=== PATIENT | female | born 1990 | race Caucasian/White ===

== ENCOUNTER 2020-03-04 16:32 | Outpatient (REF) | payer MEDICAID, SELFPAY | END 2020-03-04 16:33 | disposition home or self-care (01) | LOC: HO.LAB 16:32 | PROVIDERS: Visit Provider Internal Medicine | DX: Z20.828 Contact with and (suspected) exposure to other viral communicable diseases (principal) | CPT/HCPCS: 36415; 87635 ==

== ENCOUNTER 2020-09-07 09:03 | Outpatient (REF) | payer MEDICAID, SELFPAY ==
[2020-09-07 10:53] LABS: Hematocrit 39.2 % (37-47); Mean Corpuscular HGB Conc 33.2 g/dl (31.0-35.0); Mean Corpuscular Hemoglobin 28.6 pg (27.0-33.0); Mean Corpuscular Volume 86.3 fL (80-98); Mean Platelet Volume 11.1 fL (9.4-12.3); Platelet Count 251 X10*3/uL (160-400); Red Blood Count 4.54 X10*6/uL (4.20-5.50); Red Cell Distribution Width 12.6 % (11.0-16.0); White Blood Count 4.9 X10*3/uL (4.8-10.8)
[2020-09-07 11:29] LABS: HCG Quantitative < 2 mIU/mL; Thyroid Stimulating Hormone 0.89 uIU/mL (0.32-4.0)
[2020-09-08 11:26] LABS: CT PCR NOT DETECTED (Not Detect.); NG PCR NOT DETECTED (Not Detect.)
[2020-09-11 02:42] LABS: HPV 16 RNA NOT DETECTED (NOT DETECTED); HPV mRNA E6/E7 rflx Detected (Not Detected)
== END 2020-09-07 09:04 | disposition home or self-care (01) ==
LOC: HO.LAB 09:03
PROVIDERS: PCP Nurse Practitioner Family; Visit Provider Obstetrics & Gynecology
DX: N92.1 Excessive and frequent menstruation with irregular cycle (principal); N93.0 Postcoital and contact bleeding; Z87.42 Personal history of other diseases of the female genital tract
CPT/HCPCS: 36415; 84443; 84702; 85027; 87491; 87591; 87624; 87625; 88141; 88142; 99202

== ENCOUNTER 2020-09-21 11:25 | Outpatient (REF) | payer MEDICAID, SELFPAY ==
--- NOTE | ~2020-09-21 | US_ITS ---
EXAMINATION: US PELVIS COMPLETE US PELVIS TRANSVAGINAL CLINICAL INFORMATION: Excessive and frequent menstruation. Irregular cycles. COMPARISON: Pelvic ultrasound dated 02/17/2019. TECHNIQUE: Transabdominal and transvaginal imaging was performed. FINDINGS: The uterus is of normal size and slightly heterogeneous measuring 8.3 x 3.6 x 4.7 cm. There are tiny calcifications within the lower uterine segment. A regular homogeneous endometrium is identified measuring 0.4 cm. Both ovaries are of normal size and echogenicity. The right measures 3.7 x 1.9 x 2 cm for a volume of 7.4 mL. The left measures 3.4 x 1.6 x 2.7 cm for a volume of 7.7 mL. There are bilateral peripheral ovarian follicles, similar when compared to the prior ultrasound. Findings can be seen in the setting of polycystic ovarian syndrome. There is no pelvic free fluid. US/US transvaginal IMPRESSION: 1. Peripheral ovarian follicles bilaterally, similar when compared to the prior ultrasound. Findings can be seen in setting of polycystic ovarian syndrome. 2. Slightly heterogeneous myometrium with tiny lower uterine segment calcifications. No discrete uterine fibroid. Unremarkable endometrium.
--- NOTE | ~2020-09-21 | US_ITS ---
EXAMINATION: US PELVIS COMPLETE US PELVIS TRANSVAGINAL CLINICAL INFORMATION: Excessive and frequent menstruation. Irregular cycles. COMPARISON: Pelvic ultrasound dated 02/17/2019. TECHNIQUE: Transabdominal and transvaginal imaging was performed. FINDINGS: The uterus is of normal size and slightly heterogeneous measuring 8.3 x 3.6 x 4.7 cm. There are tiny calcifications within the lower uterine segment. A regular homogeneous endometrium is identified measuring 0.4 cm. Both ovaries are of normal size and echogenicity. The right measures 3.7 x 1.9 x 2 cm for a volume of 7.4 mL. The left measures 3.4 x 1.6 x 2.7 cm for a volume of 7.7 mL. There are bilateral peripheral ovarian follicles, similar when compared to the prior ultrasound. Findings can be seen in the setting of polycystic ovarian syndrome. There is no pelvic free fluid. US/US pelvic complete IMPRESSION: 1. Peripheral ovarian follicles bilaterally, similar when compared to the prior ultrasound. Findings can be seen in setting of polycystic ovarian syndrome. 2. Slightly heterogeneous myometrium with tiny lower uterine segment calcifications. No discrete uterine fibroid. Unremarkable endometrium.
== END 2020-09-21 11:26 | disposition home or self-care (01) ==
LOC: HO.US 11:25
PROVIDERS: Visit Provider Obstetrics & Gynecology
DX: N92.1 Excessive and frequent menstruation with irregular cycle (principal)
CPT/HCPCS: 76830; 76856

== ENCOUNTER 2020-09-30 10:35 | Outpatient (REF) | payer MEDICAID, SELFPAY | END 2020-09-30 10:36 | disposition home or self-care (01) | LOC: HO.LAB 10:35 | PROVIDERS: Visit Provider Obstetrics & Gynecology | DX: R87.610 Atypical squamous cells of undetermined significance on cytologic smear of cervix (ASC-US) (principal); R87.810 Cervical high risk human papillomavirus (HPV) DNA test positive; I10 Essential (primary) hypertension; Z91.013 Allergy to seafood | CPT/HCPCS: 57454; 81025; 88305 ==

== ENCOUNTER → 2020-10-14 11:26 | Outpatient (BNVA) | payer MEDICAID, SELFPAY | PROVIDERS: Visit Provider Obstetrics & Gynecology ==

== ENCOUNTER 2020-11-02 10:11 | Outpatient (REF) | payer MEDICAID, SELFPAY ==
[2020-11-02 19:29] LABS: CT PCR NOT DETECTED (Not Detect.); NG PCR NOT DETECTED (Not Detect.)
== END 2020-11-02 10:12 | disposition home or self-care (01) ==
LOC: HO.LAB 10:11
PROVIDERS: Visit Provider Obstetrics & Gynecology
DX: N92.1 Excessive and frequent menstruation with irregular cycle (principal)
CPT/HCPCS: 87491; 87591; 99212

== ENCOUNTER → 2021-02-01 14:09 | Outpatient (BNVA) | payer MEDICAID, SELFPAY | PROVIDERS: Visit Provider Physician Assistant ==

== ENCOUNTER → 2021-02-02 07:23 | Outpatient (BNVA) | payer MEDICAID, SELFPAY | PROVIDERS: Visit Provider Surgery ==

== ENCOUNTER → 2021-02-08 14:30 | Outpatient (BNVA) | payer MEDICAID, SELFPAY | PROVIDERS: Visit Provider Surgery ==

== ENCOUNTER 2021-02-11 09:21 | Outpatient (REF) | payer MEDICAID, SELFPAY ==
--- NOTE | ~2021-02-11 | XR_ITS ---
EXAMINATION: XR CHEST CLINICAL INFORMATION: Morbid obesity due to excess calories COMPARISON: 05/21/2018 TECHNIQUE: 2 views of the chest were obtained. FINDINGS: Lungs are clear. No focal consolidation or mass. Normal pulmonary vascularity. No pleural effusion or pneumothorax. Normal heart size. No acute osseous abnormality. XR/XR chest 2V IMPRESSION: No acute pulmonary disease.
--- NOTE | 2021-02-11 09:34 | ECG_ITS ---
Test Reason : OBESITY Blood Pressure : / mmHG Vent. Rate : 078 BPM Atrial Rate : 078 BPM P-R Int : 162 ms QRS Dur : 074 ms QT Int : 372 ms P-R-T Axes : 007 020 -02 degrees QTc Int : 424 ms Normal sinus rhythm Minimal voltage criteria for LVH, may be normal variant ( R in aVL ) Borderline ECG When compared with ECG of 27-MAY-2016 04:47, No significant change was found Referred By: Jason Robles Electronically Signed By:BRIAN DEVRIES
[2021-02-11 10:31] LABS: MANUAL DIFF FLAG NO
[2021-02-11 10:39] LABS: Basophils Percent Auto 0.5 % (0-2); Eosinophils Absolute Auto 0.1 X10*3/uL (0.0-0.4); Eosinophils Percent Auto 2.3 % (0-4); Hematocrit 40.2 % (37-47); Hemoglobin 13.5 g/dl (12.0-16.0); Imm Gran Abs Auto 0.01 X10*3/uL (0.00-0.03); Imm Gran Pct Auto 0.2 % (0.0-0.4); Lymphocytes Absolute Auto 1.7 X10*3/uL (1.2-4.9); Lymphocytes Percent Auto 38.6 % (20-40); Mean Corpuscular HGB Conc 33.6 g/dl (31.0-35.0); Mean Corpuscular Hemoglobin 28.8 pg (27.0-33.0); Mean Corpuscular Volume 85.9 fL (80-98); Mean Platelet Volume 11.4 fL (9.4-12.3); Monocytes Absolute Auto 0.4 X10*3/uL (0.1-1.2); Monocytes Percent Auto 9.3 % (2-11); Neutrophils Absolute Auto 2.2 X10*3/uL (2.0-8.3); Neutrophils Percent Auto 49.1 % (45-73); Platelet Count 251 X10*3/uL (160-400); Red Blood Count 4.68 X10*6/uL (4.20-5.50); Red Cell Distribution Width 12.4 % (11.0-16.0); White Blood Count 4.4 X10*3/uL (4.8-10.8)
[2021-02-11 10:54] LABS: Estimated Average Glucose 97 mg/dL
[2021-02-11 11:14] LABS: Ferritin 14 ng/mL (10-122); TSH reflex Free T4 1.15 uIU/mL (0.32-4.0); Vitamin D 25-OH Total 16.3 ng/mL (>30)
[2021-02-11 11:17] LABS: Alanine Aminotransferase 15 U/L (0-31); Albumin Level 4.4 g/dL (3.5-5.0); Alkaline Phosphatase 85 U/L (39-117); Anion Gap 11 (12-20); Aspartate Amino Transferase 15 U/L (5-31); Bilirubin Total 1.5 mg/dL (0.0-1.0); Blood Urea Nitrogen 16 mg/dL (9-16); C Reactive Protein 0.36 mg/dL (< or = 0.50); Calcium 9.6 mg/dL (8.4-10.2); Carbon Dioxide 25 mmol/L (22-29); Chloride 109 mmol/L (96-108); Cholesterol 197 mg/dL; Estimated Glomerular Filt Rate > 60; Glucose Random 85 mg/dL (60-115); HDL Cholesterol 41 mg/dL; Iron 98 mcg/dL (30-160); LDL Cholesterol Calculated 139 mg/dl; Percent Iron Saturation 25 % (15-50); Potassium 4.8 mmol/L (3.3-5.1); Sodium 140 mmol/L (135-145); Total Iron Binding Capacity 400 mcg/dL (228-428); Total Protein 7.7 g/dL (6.5-8.0); Triglycerides 86 mg/dL; Unsaturated Iron Binding 302 ug/dL
[2021-02-11 11:27] LABS: Folate 7.2 ng/mL (> or = 4.0); Vitamin B12 462 pg/mL (200-900)
[2021-02-12 15:45] LABS: H Pylori Breath Test Positive (Negative)
[2021-02-13 06:31] LABS: Calcium (PTHI) 9.4 mg/dL (8.6-10.2); PTHI 71 pg/mL (14-64)
[2021-02-14 21:32] LABS: Insulin Level Total 19.8 uIU/mL
[2021-02-15 06:02] LABS: Zinc 80 mcg/dL (60-130)
[2021-02-16 13:00] LABS: Vitamin B1 11 nmol/L (8-30)
[2021-02-17 17:01] LABS: Vitamin A 45 mcg/dL (38-98)
== END 2021-02-11 09:22 | disposition home or self-care (01) ==
LOC: HO.XRAY 09:21
PROVIDERS: Visit Provider Surgery
DX: Z01.818 Encounter for other preprocedural examination (principal); E66.01 Morbid (severe) obesity due to excess calories
CPT/HCPCS: 36415; 71046; 80053; 80061; 82306; 82607; 82728; 82746; 83013; 83036; 83525; 83540; 83970; 84425; 84443; 84590; 84630; 85025; 86140; 93005; 99211

== ENCOUNTER 2021-03-08 09:14 | Outpatient (REF) | payer MEDICAID, SELFPAY ==
--- NOTE | ~2021-03-08 | US_ITS ---
EXAMINATION: US COMPLETE ABDOMEN WITH LIVER ELASTOGRAPHY CLINICAL INFORMATION: Obesity COMPARISON: Previous CT and March 2018 and abdominal ultrasound February 2018 TECHNIQUE: Real-time imaging of the abdominal viscera. Noninvasive ultrasound liver fibrosis assessment is performed using Christian[employer] ElastPQ point quantification shear wave elastography (pSWE) with a C5-2 MHz transducer. Multiple elastography samples are obtained. FINDINGS: PANCREAS: Not well visualized due to bowel gas ABDOMINAL AORTA: The proximal, middle, and distal aortic segments are normal in caliber. INFERIOR VENA CAVA: Visualized portions are normal. LIVER: Normal. The liver demonstrates normal size, contour and echogenicity. No focal lesion or intrahepatic biliary duct dilatation. The right lobe measures 15 cm in length. The left lobe measures 9 cm in length. Portal flow is normal/hepatopedal Shear wave liver elastography median stiffness is 1.5 m/s (reference: normal median stiffness is 1.3 m/s or less). IQR/median stiffness to assess sampling precision is 0.2 (reference: good quality data set is IQR/median stiffness of 0.15 or less). GALLBLADDER: Surgically removed COMMON BILE DUCT: Normal in caliber measuring 0.4 cm in diameter. RIGHT KIDNEY: Normal. No hydronephrosis. No renal calculi or focal parenchymal lesions. The kidney measures 11 cm in maximum dimension. LEFT KIDNEY: Normal. No hydronephrosis. No renal calculi or focal parenchymal lesions. The kidney measures 11.5 cm in maximum dimension. SPLEEN: Normal. The spleen measures 10.5 cm in maximum dimension. FREE FLUID: None. US/US abdomen comp w elastography IMPRESSION: 1. Impression: Normal-appearing liver. Limited visualization of the pancreas. 2. Liver elastography: Slightly limited due to sampling error. In the absence of other known clinical signs, rules out compensated advanced chronic liver disease. REFERENCE: Society of Radiologists in Ultrasound Liver Stiffness Thresholds (2020): LIVER STIFFNESS THRESHOLDS: *Liver Stiffness equal or less than 1.3 m/s: High probability of being normal. *Liver Stiffness less than 1.7 m/s: In the absence of other known clinical signs, rules out compensated advanced chronic liver disease. *Liver Stiffness 1.7-2.1 m/s: Suggestive of compensated advanced chronic liver disease but need further test for confirmation. *Liver Stiffness over 2.1 m/s: Rules in compensated advanced chronic liver disease. *Liver Stiffness over 2.4 m/s: Suggestive of clinically significant portal hypertension. QUALITY OF DATA SET: *IQR/Median value equal or less than 0.15 implies a quality data set. *IQR/Median value over 0.15 implies a poor quality data set. SIGNIFICANT CHANGE FROM PRIOR EXAM: Significant change if liver stiffness measurement is 10% or greater from prior exam. OTHER CONSIDERATIONS: The stage of liver fibrosis may be overestimated in the setting of acute hepatitis, liver inflammation, elevated liver function tests, hepatic vascular congestion, obstructive cholestasis, non-fasting state, and infiltrative diseases such as amyloidosis and lymphoma. In some patients with NAFLD, the liver stiffness thresholds for compensated advanced chronic liver disease may be lower. In causes other than viral hepatitis and NAFLD, liver stiffness thresholds are not well established.
--- NOTE | ~2021-03-08 | FL_ITS ---
EXAMINATION: XR GI SERIES CLINICAL INFORMATION: Moderate/severe obesity due to excess calories. COMPARISON: None. TECHNIQUE: Routine upper GI air-contrast study was performed. FINDINGS: Following oral administration of thick barium and effervescent granules, there is normal propagation of bolus from the oral cavity through the pharynx and esophagus and into the stomach without any evidence of obstruction, narrowing or stricture. On placing patient supine and prone, the course, caliber and peristalsis of the stomach and the duodenal bulb are normal. The duodenal sweep is normal as well. There is mild gastroesophageal reflux in right decubitus view. FLUOROSCOPY TIME: 1.7 minutes. DOSE AREA PRODUCT: 31.204 uGy-m2 (microgray-meter squared). FL/FL upper GI series IMPRESSION: Mild gastroesophageal reflux without hiatal hernia.
== END 2021-03-08 09:15 | disposition home or self-care (01) ==
LOC: HO.US 09:14
PROVIDERS: Visit Provider Surgery
DX: Z01.818 Encounter for other preprocedural examination (principal); E66.01 Morbid (severe) obesity due to excess calories; K21.9 Gastro-esophageal reflux disease without esophagitis
CPT/HCPCS: 74240; 76705; 76981

== ENCOUNTER → 2021-03-18 08:45 | Outpatient (BNVA) | payer MEDICAID, SELFPAY | PROVIDERS: Visit Provider Dietitian, Registered | DX: E66.9 Obesity, unspecified (principal) | CPT/HCPCS: 97802 ==

== ENCOUNTER 2021-12-06 08:48 | Outpatient (REF) | payer MEDICAID, SELFPAY ==
[2021-12-09 07:06] LABS: HPV mRNA E6/E7 rflx Not Detected (Not Detected)
== END 2021-12-06 08:49 | disposition home or self-care (01) ==
LOC: HO.LAB 08:48
PROVIDERS: Visit Provider Obstetrics & Gynecology
DX: Z01.419 Encounter for gynecological examination (general) (routine) without abnormal findings (principal); N87.0 Mild cervical dysplasia
CPT/HCPCS: 87624; 88142; 99212

== ENCOUNTER 2022-02-16 11:16 | Outpatient (REF) | payer MEDICAID, SELFPAY ==
[2022-02-16 13:40] LABS: HCG Quantitative 22 mIU/mL
== END 2022-02-16 11:17 | disposition home or self-care (01) ==
LOC: HO.LAB 11:16
PROVIDERS: Visit Provider Obstetrics & Gynecology
DX: Z32.01 Encounter for pregnancy test, result positive (principal)
CPT/HCPCS: 36415; 81025; 84702; 99212

== ENCOUNTER 2022-02-18 09:18 | Outpatient (REF) | payer MEDICAID, SELFPAY ==
[2022-02-18 10:35] LABS: HCG Quantitative 102 mIU/mL
== END 2022-02-18 09:19 | disposition home or self-care (01) ==
LOC: HO.LAB 09:18
PROVIDERS: Visit Provider Obstetrics & Gynecology
DX: Z34.90 Encounter for supervision of normal pregnancy, unspecified, unspecified trimester (principal)
CPT/HCPCS: 36415; 84702

== ENCOUNTER 2022-02-20 08:40 | Outpatient (REF) | payer MEDICAID, SELFPAY ==
[2022-02-20 10:04] LABS: HCG Quantitative 255 mIU/mL
== END 2022-02-20 08:41 | disposition home or self-care (01) ==
LOC: HO.LAB 08:40
PROVIDERS: Visit Provider Obstetrics & Gynecology
DX: Z34.90 Encounter for supervision of normal pregnancy, unspecified, unspecified trimester (principal)
CPT/HCPCS: 36415; 84702; 99212

== ENCOUNTER 2022-02-28 10:57 | Outpatient (REF) | payer MEDICAID, SELFPAY ==
--- NOTE | ~2022-02-28 | US_ITS ---
EXAMINATION: US OBSTETRICAL ULTRASOUND CLINICAL INFORMATION: Check viability and size and dates COMPARISON: None. LMP: The 2021. Gestational age by maternal dates is by dates is 6 weeks 5 days. Estimated date of delivery by maternal dates is 10/19/2021. TECHNIQUE: Transabdominal and transvaginal first trimester OB ultrasound. Transvaginal exam was performed for better visualization of the gestational sac. FINDINGS: The uterus is normal in size and shape. There is an intrauterine gestational sac. Mean sac diameter measures 0.9 cm which would suggest gestational age of 5 weeks 4 days. There is a yolk sac. No pole is seen. The right maternal ovary is normal and measures 3.3 x 2.5 x 1.5 cm. The left maternal ovary measures 3.4 x 2.7 x 3.5 cm. There is a 1.9 x 1.9 x 1.7 cm left ovarian cyst. There is no fluid in the pelvis. US/US OB <= 14 weeks fetus IMPRESSION: Intrauterine gestational sac and yolk sac. No pole seen. This may be due to early gestational age. Follow-up OB ultrasound recommended.
[2022-02-28 12:29] LABS: HCG Quantitative 8299 mIU/mL
== END 2022-02-28 10:58 | disposition home or self-care (01) ==
LOC: HO.US 10:57
PROVIDERS: PCP Registered Nurse Community Health; Visit Provider Obstetrics & Gynecology
DX: Z34.91 Encounter for supervision of normal pregnancy, unspecified, first trimester (principal); Z3A.01 Less than 8 weeks gestation of pregnancy
CPT/HCPCS: 36415; 76801; 84702; 99212

== ENCOUNTER 2022-03-14 15:05 | Outpatient (REF) | payer MEDICAID, SELFPAY ==
--- NOTE | ~2022-03-14 | US_ITS ---
EXAMINATION: US OBSTETRICAL ULTRASOUND CLINICAL INFORMATION: Early . Cramping. COMPARISON: Previous exam 02/28/2022. LMP: 01/12/2022. Gestational age by maternal dates is 8 weeks 5 days. Estimated date of delivery by maternal dates is 10/19/2022. TECHNIQUE: Transabdominal and transvaginal first trimester OB ultrasound. Transvaginal exam was performed for better visualization of the uterus and ovaries. FINDINGS: There is a single intrauterine gestational sac with visible yolk sac, embryo/fetus, and cardiac activity. There is no significant subchorionic hemorrhage or hematoma. HR: 167 beats per minute. CRL (crown rump length): 1.15 cm (7 weeks 3 days +/- 4 days). CHERYL (estimated date of delivery): 10/28/2022 +/- 4 days. MATERNAL ADNEXA: The right maternal ovary measures 3.4 x 2.1 x 2 cm. The left maternal ovary measures 3.6 x 2.8 x 3.6 cm. There is no significant maternal adnexal mass. No maternal pelvic ascites. US/US OB pelvic and transvaginal IMPRESSION: 1. Single intrauterine gestation with ultrasound gestational age of 7 weeks 3 days +/- 4 days. 2. Estimated date of delivery is 10/28/2022 +/- 4 days. 3. No maternal adnexal mass or pelvic ascites.
== END 2022-03-14 15:06 | disposition home or self-care (01) ==
LOC: HO.US 15:05
PROVIDERS: Visit Provider Obstetrics & Gynecology
DX: Z34.91 Encounter for supervision of normal pregnancy, unspecified, first trimester (principal); Z3A.08 8 weeks gestation of pregnancy
CPT/HCPCS: 76801; 76817

== ENCOUNTER 2022-03-30 10:10 | Outpatient (REF) | payer MEDICAID, SELFPAY ==
--- NOTE | ~2022-03-30 | US_ITS ---
EXAMINATION: US OBSTETRICAL ULTRASOUND CLINICAL INFORMATION: Hemorrhage in early COMPARISON: 03/14/2022. LMP: 01/12/2022. Gestational age by maternal dates is 11 weeks 0 days. Estimated date of delivery by maternal dates is 10/19/2022. TECHNIQUE: Transabdominal scanning was performed. FINDINGS: There is a single intrauterine gestational sac with visible yolk sac, embryo/fetus, and cardiac activity. There is no significant subchorionic hemorrhage or hematoma. HR: 169 beats per minute. CRL (crown rump length): 2.73 cm (9 weeks 4 days +/- 4 days). CHERYL (estimated date of delivery): 10/29/2022 +/- 4 days. No evidence of subchorionic hemorrhage MATERNAL ADNEXA: The right maternal ovary measures 2.5 x 2.1 x 1.9 cm. The left maternal ovary measures 4.0 x 3.7 x 2.9 cm. A corpus luteal cyst is present measuring 2.0 x 1.7 x 1.8 cm. There is no significant maternal adnexal mass. No maternal pelvic ascites. US/US OB <= 14 weeks fetus IMPRESSION: 1. Single intrauterine gestation with ultrasound gestational age of 9 weeks 4 days +/- 4 days. 2. Estimated date of delivery is 10/29/2022 +/- 4 days. 3. No maternal adnexal mass or pelvic ascites.
== END 2022-03-30 10:11 | disposition home or self-care (01) ==
LOC: HO.US 10:10
PROVIDERS: PCP Registered Nurse Community Health; Visit Provider Obstetrics & Gynecology
DX: O20.9 Hemorrhage in early pregnancy, unspecified (principal)
CPT/HCPCS: 76801; 87491; 87591; 99212

== ENCOUNTER 2022-03-30 10:25 | Outpatient (REF) | payer MEDICAID, SELFPAY ==
[2022-03-30 17:22] LABS: CT PCR DETECTED (Not Detect.); NG PCR NOT DETECTED (Not Detect.)
== END 2022-03-30 10:26 | disposition home or self-care (01) ==
LOC: HO.LNP 10:25
PROVIDERS: Visit Provider Obstetrics & Gynecology
DX: O20.9 Hemorrhage in early pregnancy, unspecified (principal); Z11.3 Encounter for screening for infections with a predominantly sexual mode of transmission
CPT/HCPCS: 87491; 87591

== ENCOUNTER 2022-04-01 10:04 | Outpatient (REF) | payer MEDICAID, SELFPAY ==
[2022-04-03 08:18] LABS: Syphilis Screen Nonreactive (Nonreactive)
[2022-04-03 09:31] LABS: HIV AB/AG Nonreactive (Nonreactive); HIV Num 1 0.08 S/CO (0.00-0.99); Hepatitis B Surface Antigen Negative (Negative); ~HepC Num1 0.06 S/CO (0.00-0.79); ~Hepatitis C Antibody Nonreactive (Nonreactive)
== END 2022-04-01 10:05 | disposition home or self-care (01) ==
LOC: HO.LAB 10:04
PROVIDERS: Visit Provider Obstetrics & Gynecology
DX: A74.9 Chlamydial infection, unspecified (principal)
CPT/HCPCS: 36415; 86780; 86803; 87340; 87389

== ENCOUNTER 2024-02-22 14:49 | Outpatient (REF) | payer MEDICAID, SELFPAY ==
[2024-02-22 16:23] LABS: MANUAL DIFF FLAG NO
[2024-02-22 16:35] LABS: Basophils Percent Auto 0.6 % (0-2); Eosinophils Absolute Auto 0.2 X10*3/uL (0.0-0.4); Eosinophils Percent Auto 3.6 % (0-4); Hematocrit 38.5 % (37.0-47.0); Hemoglobin 13.2 g/dl (12.0-16.0); Imm Gran Abs Auto 0.03 X10*3/uL (0.00-0.03); Imm Gran Pct Auto 0.5 % (0.0-0.4); Lymphocytes Absolute Auto 2.4 X10*3/uL (1.2-4.9); Lymphocytes Percent Auto 38.1 % (20-40); Mean Corpuscular HGB Conc 34.3 g/dl (31.0-35.0); Mean Corpuscular Hemoglobin 29.7 pg (27.0-33.0); Mean Corpuscular Volume 86.7 fL (80.0-98.0); Monocytes Absolute Auto 0.5 X10*3/uL (0.1-1.2); Monocytes Percent Auto 8.1 % (2-11); Neutrophils Absolute Auto 3.1 x10*3/uL (2.0-8.3); Neutrophils Percent Auto 49.1 % (45-73); Platelet Count 282 X10*3/uL (160-400); Red Blood Count 4.44 X10*6/uL (4.20-5.50); Red Cell Distribution Width 12.4 % (11.0-16.0); White Blood Count 6.3 X10*3/uL (4.8-10.8)
[2024-02-22 16:56] LABS: Alanine Aminotransferase 18 U/L (0-31); Albumin Level 4.1 g/dL (3.5-5.0); Alkaline Phosphatase 87 U/L (39-117); Anion Gap 10 (12-20); Aspartate Amino Transferase 14 U/L (5-31); Bilirubin Total 0.6 mg/dL (0.0-1.0); Blood Urea Nitrogen 13 mg/dL (9-16); Calcium 9.8 mg/dL (8.4-10.2); Carbon Dioxide 28 mmol/L (22-29); Chloride 107 mmol/L (96-108); Cholesterol 211 mg/dL (<200); Estimated Glomerular Filt Rate > 60; Glucose Random 91 mg/dL (60-115); HDL Cholesterol 37 mg/dL (>40); LDL Cholesterol Calculated 122 mg/dL (<100); Potassium 3.9 mmol/L (3.3-5.1); Sodium 141 mmol/L (135-145); Total Protein 7.7 g/dL (6.5-8.0); Triglycerides 260 mg/dL (<150)
[2024-02-22 17:12] LABS: Estimated Average Glucose 100 mg/dL; Hemoglobin A1c % 5.1 % (<6.0)
[2024-02-22 17:14] LABS: TSH reflex Free T4 1.48 uIU/mL (0.32-4.0)
== END 2024-02-22 14:50 | disposition home or self-care (01) ==
LOC: HO.HHCL 14:49
PROVIDERS: Visit Provider General Practice
DX: E66.9 Obesity, unspecified (principal)
CPT/HCPCS: 36415; 80053; 80061; 83036; 84443; 85025

== ENCOUNTER 2024-12-29 14:34 | Outpatient (REF) | payer MEDICAID, SELFPAY ==
--- OUTSIDE RECORDS SUMMARY | 2024-12-29 15:11 | XMS_ITS | Encounter Summary ---
Author Organization [facility] Address [address] [place] [phone] Phone Care Team Providers Care Melter Loader Name Role Phone Unavailable Primary Care Provider Unavailabl e Encounter Details Date Type Department Care Team (Late st Contact Info) Description 05/16/2011 Documentation [facility] [place] [address] [place] [address] Family Medicine, Physician [address] [place] [address] Social History Tobacco Use Types Packs/Day Years Used Date Smoking Tobacco: Never Assessed Comments Unknown Sex and Gender Information Value Date Recorded Sex Assigned at Not on file Legal Sex Female 4:01 PM EDT Gender Identity Not on file Sexual Orientation Not on file documented as of this encounter Plan of Treatment Not on file documented as of this encounter Visit Diagnoses Not on filedocumented in this encounter
[2024-12-29 16:47] LABS: Anion Gap 11 (12-20); Blood Urea Nitrogen 15 mg/dL (9-16); Calcium 9.0 mg/dL (8.4-10.2); Carbon Dioxide 25 mmol/L (22-29); Chloride 109 mmol/L (96-108); Estimated Glomerular Filt Rate > 60; Potassium 4.2 mmol/L (3.3-5.1); Sodium 141 mmol/L (135-145)
[2024-12-30 03:55] LABS: HIV Num 1 0.07 S/CO (0.00-0.99)
[2024-12-30 05:04] LABS: CT PCR NOT DETECTED (Not Detect.); NG PCR NOT DETECTED (Not Detect.)
[2024-12-30 09:22] LABS: Bacterial Vaginosis PCR POSITIVE (Negative); Candida Group PCR NOT DETECTED (Not Detect); Candida glab krusei PCR NOT DETECTED (Not Detect); Trichomonas vaginalis PCR NOT DETECTED (Not Detect)
== END 2024-12-29 14:35 | disposition home or self-care (01) ==
LOC: HO.HHCL 14:34
PROVIDERS: PCP General Practice; Visit Provider General Practice
DX: Z11.4 Encounter for screening for human immunodeficiency virus [HIV] (principal); E66.812 Obesity, class 2; E66.01 Morbid (severe) obesity due to excess calories; R87.612 Low grade squamous intraepithelial lesion on cytologic smear of cervix (LGSIL); Z68.39 Body mass index [BMI] 39.0-39.9, adult
CPT/HCPCS: 36415; 80048; 81515; 82533; 84443; 87389; 87491; 87591; 87626; 88175

== ENCOUNTER 2025-02-03 13:06 | Outpatient (REF) | payer MEDICAID, SELFPAY ==
--- OUTSIDE RECORDS SUMMARY | 2025-02-03 15:45 | XMS_ITS | Encounter Summary ---
Author Organization [employer] Address [address] [place] [address] Care Team Providers Care Farm Operations Technical Director Name Role Phone Annette Long MD Primary Care Provider [phone] Reason for Visit * Reason Comments sick onsite Encounter Details Date Type Department Care Team ([facility] st Contact Info) Description 02/03/2025 3:45 PM EDT Office Visit [facility] [address] [place] [address] Apurva Merino NP [address] [place] [address] Vaginal itching (Primary Dx); Vaginal yeast infection Social History Tobacco Use Types Packs/Day Years Used Date Smoking Tobacco: Never Passive Smoke Exposure: Never Smokeless Tobacco: Never Alcohol Use Standard Drinks/Week Comments Never 0 (1 standard drink = 0.6 oz pur e alcohol) Alcohol Answer Date Recorded How often do you have a drink containing alcohol ? 0 10/10/2024 How many drinks containing a lcohol do you have on a typical day when you are drinking? 0 10/10/2024 How often do you have six or more drinks on one occasion? 0 10/10/2024 Depression Answer Date Recorded Patient Health Questionnaire-9 Score 1 12/29/2024 Patient Health Questionnaire-9 Score 1 12/29/2024 Last PHQ-9: Questionnaire Data Not on file 0 12/29/2024 Housing Stability Answer Date Recorded What is your housing situation today? I have risa palafox 02/22/[address] you li ve. Do you have problems with any of the following? None of the above 02/22/2024 Food Insecurity Answer Date Recorded Within the past 12 months, y ou worried that your food would run out before you got money to buy more: Never True 02/22/2024 Within the past 12 months,th e food you bought just didn't last and you didn't have enough money to get more: Never True Transportation Answer Date Recorded In the past 12 months, has l ack of transportation kept you from medical appts, meetings, work or from getting things needed for daily living? I am not sure 12/29/2024 Utilities Answer Date Recorded In the past 12 months, has t he electric, gas, oil or water company threatened to shut off services in your home? No 02/22/2024 Depression Answer Date Recorded Patient Health Questionnaire-2 Score 0 12/29/2024 Internet Access Answer Date Recorded Internet Access Q1 Yes 02/22/2024 Internet Access Q2 Not on file 02/22/2024 Comments No Sex and Gender Information Value Date Recorded Sex Assigned at Female 04/03/2022 10:29 AM EDT Legal Sex Female 10:29 AM EDT Gender Identity Female 04/03/2022 10:29 AM EDT Sexual Orientation Straight 04/03/2022 10 :29 AM EDT documented as of this encounter Last Filed Vital Signs Vital Sign Reading Time Taken Comments Blood Pressure 120/84 02/03/2025 4:06 PM EDT Pulse 84 02/03/2025 4:06 PM EDT Temperature 36.9 C (98.4 F) 02/03/2025 4:06 PM EDT Respiratory Rate 21 02/03/2025 4:06 PM EDT Oxygen Saturation 98% 02/03/2025 4:06 PM EDT Inhaled Oxygen Concentration - - Weight 106 kg (233 lb 3.2 oz) 02/03/2025 4:06 PM EDT Height 167.6 cm (5' 6 ) 02/03/2025 4:06 PM EDT Body Mass Index 37.64 02/03/2025 4:06 PM EDT documented in this encounter Progress Notes * Apurva Merino NP - 02/03/2025 3:45 PM EDT Megan Wesley is a 34 y.o. who presents to the office for Chief Complaint Patient presents with sick onsite Problem List[1] Medical History[2] Allergies[3] Megan Wesley, 34-year-old female - Increased frequency of sexual activity - Used boric acid vaginally on Thursday, January 30, 2025, after intercourse - Developed intense vaginal itching and redness following boric acid use - Itching primarily affects clitoral area - Took oral antifungal (Diflucan) for presumed yeast infection; symptoms worsened - Denies vaginal discharge and odor - Last similar episode occurred after using body wash in genital area, resulting in redness and irritation - Has been with same sexual partner for over 10 years - Last STI screening and Pap smear performed last month Review of Systems BP 120/84 (BP Location: Right arm, Patient Position: Sitting, BP Cuff Size: Large adult) Pulse 84 Temp 98.4 ??F (36.9 ??C) (Oral) Resp 21 Ht 5' 6 (1.676 m) Wt 233 lb 3.2 oz (106 kg) PrP031% BMI 37.64 kg/m?? - GENITOURINARY: Labia symmetric, no lesions, clitoral hypopigmentation, diffuse white, chalky vaginal discharge. No cervical tenderness, thin horowitz vaginal discharge observed internally. Assessment & Plan Vaginal itching Orders: Chlamydia/N. Gonorrhoeae RNA, TMA, Vaginal Bacterial Vaginosis Panel Vaginal yeast infection Orders: Chlamydia/N. Gonorrhoeae RNA, TMA, Vaginal Bacterial Vaginosis Panel Assessment & Plan Vaginal itching: - Likely due to topical irritation from boric acid; possible contribution from external factors such as body wash. No evidence of sexually transmitted infection. - Recommended avoidance of boric acid. Offered hydrocortisone cream for clitoral irritation. Patient elected to avoid boric acid and monitor symptoms. Vaginal yeast infection: - Vaginal discharge appears consistent with yeast infection; differential includes bacterial vaginosis, but not treated presumptively. - Performed vaginal swab for laboratory analysis. Offered repeat dose of Diflucan (fluconazole) or option to wait; patient informed of both options. Medication refill for Diflucan provided. Prescription - Hydrocortisone cream, topical for clitoral irritation - Diflucan refill, option to repeat oral dose (remains active 7-10 days), very few side effects Current Medications[4] This note was drafted using Ambient (AI) technology. The patient/patient's guardian has been informed and has consented to the use of this technology: Yes [1] Patient Active Problem List Diagnosis Hypercholesterolemia Postcoital bleeding Anxiety and depression Chronic hypertension History of section History of eclampsia History of delivery Intrauterine growth restriction (IUGR) affecting care of mother Low grade squamous intraepithelial lesion (LGSIL) on cervical Pap smear Marginal insertion of umbilical cord affecting management of mother Unwanted fertility Class 2 severe obesity due to excess calories with serious comorbidity and body mass index (BMI) of39.0 to 39.9 in adult ([facility]) Macromastia Bacterial vaginosis Vaginal itching Vaginal yeast infection [2] No past medical history on file. [3] No Known Allergies [4] Current Outpatient Medications: amLODIPine (Norvasc) 2.5 MG tablet, Take 1 tablet (2.5 mg) by mouth Once per day. For blood pressure, Disp: 90 tablet, Rfl: 3 buPROPion XL (Wellbutrin XL) 150 MG 24 hr tablet, Take 1 tablet (150 mg) by mouth Once per day. Do not crush, chew, or split., Disp: 90 tablet, Rfl: 3 fluconazole (Diflucan) 150 MG tablet, Take 1 tablet (150 mg) by mouth 1 (one) time per week for 14 days., Disp: 2 tablet, Rfl: 0 hydrocortisone 2.5 % cream, Apply topically 2 times daily., Disp: 10 g, Rfl: 1 PARoxetine (Paxil) 40 MG tablet, Take 1 tablet (40 mg) by mouth in the morning., Disp: 90 tablet, Rfl: 1 traZODone (Desyrel) 100 MG tablet, Take 1 tablet (100 mg) by mouth at bedtime., Disp: 90 tablet, Rfl: 1 venlafaxine XR (Effexor XR) 37.5 MG 24 hr capsule, Take 1 capsule (37.5 mg) by mouth Once per day. To cross taper with Paxil, take 20mg Paxil and 37.5mg of Effexor together for one month., Disp: 30 capsule, Rfl: 11 Zepbound 12.5 MG/0.5ML solution auto-injector, INJECT ONE PEN (=12.5MG) SUBCUTANEOUSLY ONCE A WEEK DIRECTED, Disp: 2 mL, Rfl: 1 documented in this encounter Miscellaneous Notes * Assessment & Plan Note - Apurva Merino NP - 02/03/2025 3:45 PM EDTAssociated Problem(s): Vaginal itching Orders: Chlamydia/N. Gonorrhoeae RNA, TMA, Vaginal Bacterial Vaginosis Panel * Assessment & Plan Note - Apurva Merino NP - 02/03/2025 3:45 PM EDTAssociated Problem(s): Vaginal yeast infection Orders: Chlamydia/N. Gonorrhoeae RNA, TMA, Vaginal Bacterial Vaginosis Panel documented in this encounter Plan of Treatment Upcoming Encounters Date Type Department Care Team (Late st Contact Info) Description 04/01/2025 4:00 PM EDT Office Visit [facility] [address] [place] [address] Annette Long MD [address] [place] [address] documented as of this encounter Procedures Procedure Name Priority Date/Time Associated Diagnosis Comments BACTERIAL VAGINOSIS PANEL Routine 02/03/2025 4:30 PM EDT Vaginal itching Vaginal yeast infection CHLAMYDIA/N. GONORRHOEAE RNA, TMA, UROGENITAL Routine 02/03/2025 4:30 PM EDT Vaginal itching Vaginal yeast infection documented in this encounter Results * (ABNORMAL) Bacterial Vaginosis Panel (02/03/2025 4:30 PM EDT) TRICHOMONAS VAGINALIS DETECTION BY PCR NOT DETECTED Not Detect [facility] BACTERIAL VAGINOSIS DETECTION BY PCR POSITIVE(A) Negative [facility] Comment:The BV organism targ ets of the Xpert Xpress MVP test can becommensal in women; Xpert Xpress MVP positive results forbacterial vaginosis should be considered in conjunction withother clinical and patient information to determine thedisease status. Organisms that are not detected by the XpertXpress MVP test have also been reported to be associatedwith BV and aerobic vaginitis.The Xpert Xpress MVP test performance has not been evaluatedin patients under the age of 14. KATHLEEN GROUP DETECTION BY PCR DETECTED(A) Not Detect [facility] Kathleen glab krusei PCR NOT DETECTED Not Detect [facility] Swab Vaginal structure / Unknown 02/03/2025 4:30 PM EDT 02/04/2025 1:07 PM EDT us Apurva Merino NP LAB MICROBIOLOGY - GENERAL ORDER JUAN Final Result [facility] [address] [place] [phone] * Chlamydia/N. Gonorrhoeae RNA, TMA, Vaginal (02/03/2025 4:30 PM EDT) CT PCR NOT DETECTED Not Detect. [facility] Comment:A not detected test result does not exclude the possibilityof infection because test results can be affected byimproper specimen collection, concurrent antibiotic therapy,or the number of organisms in the specimen which may bebelow the sensitivity of the test. As with many diagnostictests, results from the Xpert CT/NG assay should beinterpreted in conjunction with other laboratory andclinical data available to the clinician.Xpert CT/NG performance has not been evaluated in patientsless than 14 years of age. The assay should not be used forthe evaluationof suspected sexual abuse or for other medico-legalindications. Additional testing is recommended in anycircumstance when false positive or false negative resultscould lead to adverse medical, social or psychologicalconsequences. NG PCR NOT DETECTED Not Detect. [facility] Comment:A not detected test result does not exclude the possibilityof infection because test results can be affected byimproper specimen collection, concurrent antibiotic therapy,or the number of organisms in the specimen which may bebelow the sensitivity of the test. As with many diagnostictests, results from the Xpert CT/NG assay should beinterpreted in conjunction with other laboratory andclinical data available to the clinician.Xpert CT/NG performance has not been evaluated in patientsless than 14 years of age. The assay should not be used forthe evaluationof suspected sexual abuse or for other medico-legalindications. Additional testing is recommended in anycircumstance when false positive or false negative resultscould lead to adverse medical, social or psychologicalconsequences. Swab Cervical swab / Unknown 02/03/2025 4:30 PM EDT 02/04/2025 1:07 PM EDT us Apurva Merino NP LAB MICROBIOLOGY - GENERAL ORDER JUAN Final Result [facility] [address] [place] [phone] [phone] documented in this encounter Visit Diagnoses Diagnosis Vaginal itching- Primary Pruritus of genital organs Vaginal yeast infection Candidiasis of vulva and vagina documented in this encounter Additional Health Concerns Assessment Noted Time PHQ-9 Depression Total Score: 1 12/30/19 25 2:40 PM EDT documented as of this encounter Care Teams Farm Operations Technical Director Relationship Specialty Start Date End Date Annette Long MD [address] [place] [phone] PCP - General Family Medicine 02/01/22 documented as of this encounter
[2025-02-04 14:40] LABS: Bacterial Vaginosis PCR POSITIVE (Negative); Candida Group PCR DETECTED (Not Detect); Candida glab krusei PCR NOT DETECTED (Not Detect); Trichomonas vaginalis PCR NOT DETECTED (Not Detect)
[2025-02-04 15:04] LABS: CT PCR NOT DETECTED (Not Detect.); NG PCR NOT DETECTED (Not Detect.)
--- OUTSIDE RECORDS SUMMARY | 2025-02-04 15:24 | XMS_ITS | Encounter Summary ---
Author Organization [employer] Address [address] [place] [address] Care Team Providers Care Cold Strip Feeder Name Role Phone Annette Long MD Primary Care Provider [phone] Reason for Visit * Reason Comments Med Refill Encounter Details Date Type Department Care Team ([facility] st Contact Info) Description 09/01/2024 Refill [facility] [address] [place], [place] [phone] Annette Long MD [address] [place], [place] [phone] Social History Tobacco Use Types Packs/Day Years Used Date Smoking Tobacco: Never Passive Smoke Exposure: Never Smokeless Tobacco: Never Alcohol Use Standard Drinks/Week Comments Never 0 (1 standard drink = 0.6 oz pur e alcohol) Depression Answer Date Recorded Patient Health Questionnaire-9 Score 3 08/25/2024 Patient Health Questionnaire-9 Score 3 08/25/2024 Last PHQ-9: Questionnaire Data Not on file 0 08/25/2024 Housing Stability Answer Date Recorded What is [...] from getting things needed for daily living? No 02/22/2024 Utilities Answer Date Recorded In the past 12 months, has t he electric, gas, oil or water company threatened to shut off services in your home? No 02/22/2024 Depression Answer Date Recorded Patient Health Questionnaire-2 Score 0 08/25/2024 Internet Access Answer Date Recorded Internet Access Q1 Yes 02/22/2024 Internet Access Q2 Not on file 02/22/2024 Comments No Sex and Gender Information Value Date Recorded Sex Assigned at Female 04/03/2022 10:29 AM EDT Legal Sex Female 10:29 AM EDT Gender Identity Female 04/03/2022 10:29 AM EDT Sexual Orientation Straight 04/03/2022 10 :29 AM EDT documented as of this encounter Plan of Treatment Upcoming Encounters Date Type Department Care Team (Late st Contact Info) Description 04/01/2025 4:00 PM EDT Office Visit [facility] [address] [place] [address] Annette Long MD [address] [place] [address] documented as of this encounter Visit Diagnoses Not on filedocumented in this encounter Additional Health Concerns Assessment Noted Time PHQ-9 Depression Total Score: 3 08/26/19 25 3:18 PM EDT documented as of this encounter Care Teams Cold Strip Feeder Relationship Specialty Start Date End Date Annette Long MD [address] [place] [phone] PCP - General Family Medicine 02/01/22 documented as of this encounter
--- OUTSIDE RECORDS SUMMARY | 2025-02-04 15:24 | XMS_ITS | Encounter Summary ---
Author Organization [email or web address] Address [address] [place] [address] Care Team Providers Care Php Wordpress Developer Name Role Phone Annette Long MD Primary Care Provider [phone] Reason for Visit * Reason Onset Date Comments Med Refill 01/27/2025 Encounter Details Date Type Department Care Team ([facility] st Contact Info) Description 01/27/2025 Refill [facility] [address] [place], [place] [phone] Annette Long MD [address] [place] [address] Social History Tobacco Use Types Packs/Day Years [...] Description 04/01/2025 4:00 PM EDT Office Visit [facility] [address] [place] [address] Annette Long MD [address] [place] [address] documented as of this encounter Visit Diagnoses Not on filedocumented in this encounter Additional Health Concerns Assessment Noted Time PHQ-9 Depression Total Score: 1 12/30/19 25 2:40 PM EDT documented as of this encounter Care Teams Php Wordpress Developer Relationship Specialty Start Date End Date Annette Long MD [address] [place] [phone] PCP - General Family Medicine 02/01/22 documented as of this encounter
--- OUTSIDE RECORDS SUMMARY | 2025-02-04 15:24 | XMS_ITS | Encounter Summary ---
Author Organization [employer] Address [address] [facility] 7t [place] [address] Care Team Providers Care Manager Fund Name Role Phone Annette Long MD Primary Care Provider [phone] Reason for Referral * Consultation (Routine) - Closed Specialty Diagnoses / Procedures Referred By Reginald maynard Referred To Contact Nutrition Diagnoses Class 3 severe obesity due to excess calories with serious comorbidity and body mass index (BMI) of 45.0 to 49.9 in adult Annette Long MD [address] [place] [address] Phone: tel: fax: Referral ID Status Reason Start Date Expiration Date V isits Requested Visits Authorized [id number] Closed Consult and Treat 03/21/2024 03/21/2025 1 1 Encounter Details Date Type Department Care Team (Late st Contact Info) Description 03/21/2024 Orders Only [facility] [address] [place], [place] [phone] Annette Long MD [address] [place], [place] [phone] Class 3 severe obesity due to excess calories with serious comorbidity and body mass index (BMI) of 45.0 to 49.9 in adult (CMS/HCC) (Primary Dx) Social History Tobacco Use Types Packs/Day Years Used Date Smoking Tobacco: Never Smokeless Tobacco: Never Alcohol Use Standard Drinks/Week Comments Never 0 (1 standard drink = 0.6 oz pur e alcohol) Depression Answer Date Recorded Patient Health Questionnaire-9 Score 12 02/22/2024 Patient Health Questionnaire-9 Score 12 02/22/2024 Last PHQ-9: Questionnaire Data Not on file 0 02/22/2024 Housing Stability Answer Date Recorded What is [...] Answer Date Recorded Patient Health Questionnaire-2 Score 6 02/22/2024 Internet Access Answer Date Recorded Internet Access [...] Description 04/01/2025 4:00 PM EDT Office Visit [facility] [address] [place] [address] Annette Long MD [address] [place] [address] Scheduled Referrals Name Type Priority Associated Diagnoses Orde r Schedule Referral to Nutrition Therapy Outpatient Referral Routine Class 3 severe obesity due to excess calories with serious comorbidity and body mass index (BMI) of 45.0 to 49.9 in adult (CMS/HCC) Expected: 03/21/2024 (Approximate), Expires: 03/21/2025 documented as of this encounter Visit Diagnoses Diagnosis Class 3 severe obesity due to excess calories with serious comorbidity and body mass index (BMI) of 45.0 to 49.9 in adult- Primary documented in this encounter Additional Health Concerns Assessment Noted Time PHQ-9 Depression Total Score: 12 024 1:42 PM EDT documented as of this encounter Care Teams Manager Fund Relationship Specialty Start Date End Date Annette Long MD [address] [place] [phone] PCP - General Family Medicine 02/01/22 documented as of this encounter
--- OUTSIDE RECORDS SUMMARY | 2025-02-04 15:24 | XMS_ITS | Encounter Summary ---
Author Organization [employer] [facility] Address [address] [facility] [address] 7t [place] [address] Care Team Providers Care Jig Maker Name Role Phone Annette Long MD Primary Care Provider [phone] Encounter Details Date Type Department Care Team (Late st Contact Info) Description 02/28/2023 Orders Only [facility] [address] [place] [address] Oxana Echavarria Social History Tobacco Use Types Packs/Day Years [...] Description 04/01/2025 4:00 PM EDT Office Visit [facility] [address] [place] [address] Annette Long MD [address] [place] [phone] documented as of this encounter Procedures Procedure Name Priority Date/Time Associated Diagnosis Comments COLPOSCOPY Routine 09/30/2020 12:00 AM EDT HM PAP/HPV Routine 09/08/2020 documented in this encounter Results * Colposcopy (09/30/2020 12:00 AM EDT) Historical Provider MD IN CLINIC/BEDSIDE ORDERAB LES Final Result * Hm Pap Smear (09/08/2020) us Historical Provider HEALTH MAINTENANCE Final Result documented in this encounter Visit Diagnoses Not on filedocumented in this encounter Care Teams Jig Maker Relationship Specialty Start Date End Date Annette Long MD [address] [place] [address] PCP - General Family Medicine 02/01/22 documented as of this encounter
--- OUTSIDE RECORDS SUMMARY | 2025-02-04 15:24 | XMS_ITS | Encounter Summary ---
Author Organization [employer] [facility] Address [address] [facility] 7t [place] [address] Care Team Providers Care Field Research Assistant Name Role Phone Annette Long MD Primary Care Provider [phone] Encounter Details Date Type Department Care Team (Late st Contact Info) Description 02/28/2023 Orders Only [facility] [address] [place] [phone] Provider, MD Lidia Social History Tobacco Use Types Packs/Day Years [...] Description 04/01/2025 4:00 PM EDT Office Visit [address] [phone] Annette Long MD [address] [place] [phone] documented as of this encounter Procedures Procedure Name Priority Date/Time Associated Diagnosis Comments HM PAP/HPV Routine 12/06/2021 documented in this encounter Results * Hm Pap Smear (12/06/2021) Historical Provider HEALTH MAINTENANCE Final Result documented in this encounter Visit Diagnoses Not on filedocumented in this encounter Care Teams Field Research Assistant Relationship Specialty Start Date End Date Annette Long MD [address] [place] [phone] PCP - General Family Medicine 02/01/22 documented as of this encounter
--- OUTSIDE RECORDS SUMMARY | 2025-02-04 15:24 | XMS_ITS | Encounter Summary ---
Author Organization [employer] Address [address] [place] [address] Care Team Providers Care Engine Designer Name Role Phone Annette Long MD Primary Care Provider [phone] Reason for Visit * Reason Onset Date Comments Med Refill 05/15/2024 Encounter Details Date Type Department Care Team ([facility] st Contact Info) Description 05/15/2024 Refill [facility] [address] [place], [place] [phone] Annette Long MD [address] [place] [address] Class 3 severe obesity due to excess calories with serious comorbidity and body mass index (BMI) of 45.0 to 49.9 in adult (CMS/HCC) Social History Tobacco Use Types Packs/Day Years [...] your housing situation today? I have risa sing 02/22/[address] you li [...] Description 04/01/2025 4:00 PM EDT Office Visit [facility] [address] [place] [address] Annette Long MD [address] [place] [address] documented as of this encounter Visit Diagnoses Diagnosis Class 3 severe obesity due to excess calories with serious comorbidity and body mass index (BMI) of 45.0 to 49.9 in adult documented in this encounter Additional Health Concerns Assessment Noted Time PHQ-9 Depression Total Score: 12 024 1:42 PM EDT documented as of this encounter Care Teams Engine Designer Relationship Specialty Start Date End Date Annette Long MD [address] [place] [phone] PCP - General Family Medicine 02/01/22 documented as of this encounter
--- OUTSIDE RECORDS SUMMARY | 2025-02-04 15:24 | XMS_ITS | Encounter Summary ---
Author Organization [facility] Address [address] [place] [phone] Phone Care Team Providers Care Senior C Software Engineer Name Role Phone Unavailable Primary Care Provider Unavailabl e Encounter Details Date Type Department Care Team (Late st Contact Info) Description 05/16/2011 Documentation [facility] Family Medicine [address] [place] [address] Family Medicine, Physician [address] [place] [address] Social History Tobacco Use Types [...]
--- OUTSIDE RECORDS SUMMARY | 2025-02-04 15:24 | XMS_ITS | Encounter Summary ---
Author Organization [employer] Address [address] [place] [address] Care Team Providers Care Layaway Clerk Name Role Phone Annette Long MD Primary Care Provider [phone] Encounter Details Date Type Department Care Team (Latest Contact Info) Description 02/03/2025 Travel Social History Tobacco Use Types Packs/Day Years [...] Description 04/01/2025 4:00 PM EDT Office Visit [facility] [address] [place] [address] Anntete Long MD [address] [place] [address] documented as of this encounter Visit Diagnoses Not on filedocumented in this encounter Additional Health Concerns Assessment Noted Time PHQ-9 Depression Total Score: 1 12/30/19 25 2:40 PM EDT documented as of this encounter Care Teams Layaway Clerk Relationship Specialty Start Date End Date Annette Long MD [address] [place] [address] PCP - General Family Medicine 02/01/22 documented as of this encounter
--- OUTSIDE RECORDS SUMMARY | 2025-02-04 15:24 | XMS_ITS | Encounter Summary ---
Author Organization [employer] Address [address] [place] [address] Care Team Providers Care Immigration Inspector Name Role Phone Annette Long MD Primary Care Provider [phone] Reason for Visit * Reason Onset Date Comments Nurse Triage 02/03/2025 Encounter Details Date Type Department Care Team ([facility] st Contact Info) Description 02/03/2025 Telephone [facility] [address] [place], [place] [phone] Annette Long MD [address] [place], [place] [phone] Nurse Triage Social History Tobacco Use Types Packs/Day Years [...] AM EDT documented as of this encounter Miscellaneous Notes * Telephone Encounter - Ana Maria Calabrese LPN - 02/03/2025 10:41 AM EDT Triage call to patient who reports vaginal itching inside vulva and clitioris is itchy and inflamed. Patient had been advised by PCP previously to insert boric acid tablets following intercourse. Patient with history of recurrent BV. Has been using tablets frequently and noted a pasty smear on underwear.Denies actual vaginal discharge. No burning or stinging with urination nO blood or pus noted in urine. Patient concerned with ongoing vaginal issues. Has taken Diflucan she had from RX for previous yeast infection on Sunday and no resolution or itching or inflammation. Disposition reviewed andpatient in agreement with plan. ASK/EJanine DUST COLLECTOR ATTENDANT today at 345pm Protocol Used: Vaginal Symptoms (Adult) Protocol-Based Disposition: See in Office or Video Visit Today or Tomorrow Positive Triage Question: * Moderate-Severe itching (i.e., interferes with school, work, or sleep) * All higher-acuity triage questions were negative Care Advice Discussed: * Reasons To Call Back - You become worse * Telephone Encounter - Vidhya Villaltaquez - 02/03/2025 9:39 AM EDT Symptoms: Urine Symptoms, Itching - No Rash Outcome: Schedule a same-day appointment or talk to a nurse or provider today Reason: Caller denied all higher acuity questions The caller accepted this outcome. Contact pt at [phone] documented in this encounter Plan of Treatment Upcoming Encounters Date Type Department Care Team (Late st Contact Info) Description 04/01/2025 4:00 PM EDT Office Visit [facility] [address] [place] [phone] Annette Long MD [address] [place] [phone] documented as of this encounter Visit Diagnoses Not on filedocumented in this encounter Additional Health Concerns Assessment Noted Time PHQ-9 Depression Total Score: 1 12/30/19 25 2:40 PM EDT documented as of this encounter Care Teams Immigration Inspector Relationship Specialty Start Date End Date Annette Long MD [address] [place] [phone] PCP - General Family Medicine 02/01/22 documented as of this encounter
--- OUTSIDE RECORDS SUMMARY | 2025-02-04 15:24 | XMS_ITS | Encounter Summary ---
Author Organization [employer] Address [address] [place] [address] Care Team Providers Care Multifocal Button Inspector Name Role Phone Annette Long MD Primary Care Provider [phone] Reason for Visit * Reason Onset Date Comments Medication Question 03/19/2024 Encounter Details Date Type Department Care Team ([facility] Contact Info) Description 03/19/2024 Telephone [facility] [address] [place], [place] [phone] Annette Long MD [address] [place], [place] [phone] Medication Question Social History Tobacco Use Types Packs/Day Years [...] encounter Miscellaneous Notes * Telephone Encounter - Sofy Mckinnon RN - 03/19/2024 3:43 PM EDT TC placed to [facility], they have Wegovy 0.25mg in stock. They will contact [facility] for a transfer and call pt. When ready at our pharmacy, most likely tomorrow. TC placed to pt. And pt. Agrees to plan. Pt. Also requesting a referral for nutrition dept. To workto lose weight alongside weight loss medication. Advised pt. Request for referral would be sent. * Telephone Encounter - Dwight Wesley - 03/19/2024 12:26 PM EDT Tc from pt calling in regards to Wegovy stating its on back order at the [facility] and no other [facility] has it in stock at the moment. Pharmacy advised pt call to request a possible alternative. Please contact pt at [phone]. documented in this encounter Plan of Treatment Upcoming Encounters Date Type Department Care Team (Late st Contact Info) Description 04/01/2025 4:00 PM EDT Office Visit [facility] [address] [place] [address] Annette Long MD [address] [place] [address] documented as of this encounter Visit Diagnoses Not on filedocumented in this encounter Additional Health Concerns Assessment Noted Time PHQ-9 Depression Total Score: 12 024 1:42 PM EDT documented as of this encounter Care Teams Multifocal Button Inspector Relationship Specialty Start Date End Date Annette Long MD [address] [place] [address] PCP - General Family Medicine 02/01/22 documented as of this encounter
--- OUTSIDE RECORDS SUMMARY | 2025-02-04 15:24 | XMS_ITS | Encounter Summary ---
Author Organization [employer] Address [address] [place] [address] Care Team Providers Care General Magistrate Name Role Phone Annette Long MD Primary Care Provider [phone] Encounter Details Date Type Department Care Team (Late st Contact Info) Description 12/31/2024 Orders Only [facility] [address] [place], [place] [phone] Annette Long MD [address] [place], [place] [phone] Screening for cervical cancer (Primary Dx) Social History Tobacco Use Types [...] Description 04/01/2025 4:00 PM EDT Office Visit [facility] [address] [place] [phone] Annette Long MD [address] [place] [phone] Scheduled Orders Name Type Priority Associated Diagnoses Orde r Schedule HPV High Risk with Reflex to Subtypes Lab Routine Screening for cervical cancer Expected: 12/31/2024 (Approximate), Expires: 12/31/2025 documented as of this encounter Visit Diagnoses Diagnosis Screening for cervical cancer- Primary Screening for malignant neoplasm of the cervix documented in this encounter Additional Health Concerns Assessment Noted Time PHQ-9 Depression Total Score: 1 12/30/19 25 2:40 PM EDT documented as of this encounter Care Teams General Magistrate Relationship Specialty Start Date End Date Annette Long MD [address] [place] [phone] PCP - General Family Medicine 02/01/22 documented as of this encounter
--- OUTSIDE RECORDS SUMMARY | 2025-02-04 15:24 | XMS_ITS | Clinical Summary ---
Author Organization [employer] Address [address] [facility] [address] [place] [address] Care Team Providers Care Open Winder Name Role Phone Annette Long MD Primary Care Provider [phone] Allergies No known active allergies Medications * This document contains information received from the source organization and may not represent a complete record from that organization. amLODIPine (Norvasc) 2.5 MG tablet Take 1 tablet (2.5 mg) by mouth Once per day. For blood pressure 90 tablet 3 02/22/20 24 2024 Active buPROPion XL (Wellbutrin XL) 150 MG 24 hr tablet Take 1 tablet (150 mg) by mouth Once per day. Do not crush, chew, or split. 90 tablet 3 10/09/19 25 2025 Active PARoxetine (Paxil) 40 MG tablet Take 1 tablet (40 mg) by mouth in the morning. 90 tablet 1 11/19/19 25 2025 Active traZODone (Desyrel) 100 MG tablet Take 1 tablet (100 mg) by mouth at bedtime. 90 tablet 1 11/19/19 25 Active venlafaxine XR (Effexor XR) 37.5 MG 24 hr capsule Take 1 capsule (37.5 mg) by mouth Once per day. To cross taper with Paxil, take 20mg Paxil and 37.5mg of Effexor together for one month. 30 capsule 12/30/192025 Active Zepbound 12.5 MG/0.5ML solution auto-injector INJECT ONE PEN (=12.5MG) SUBCUTANEOUSLY ONCE A WEEK DIRECTED 2 mL 01/29/20 Active fluconazole (Diflucan) 150 MG tablet Take 1 tablet (150 mg) by mouth 1 (one) time per week for 14 days. 2 tablet 02/04/20 25 2024 Active hydrocortison e 2.5 % cream Apply topically 2 times daily. 10 g 1 02/04/20 Active Tirzepatide-W eight Management (Zepbound) 12.5 MG/0.5ML solution auto-injector Inject 0.5 mL (12.5 mg) under the skin 1 (one) time per week. 2 mL 1 11/19/19 25 2024 Discontinued metroNIDAZOLE (Flagyl) 500 MG tabletIndicat ions:Bacteria l vaginosis Take 1 tablet (500 mg) by mouth 2 times daily for 7 days. 14 tablet 12/30/19 25 2024 Active Problems Problem Noted Date Diagnosed Date Vaginal itching 02/03/2025 Assessment & Plan (02/03/2025 4:41 PM EDT): Orders: Chlamydia/N. Gonorrhoeae RNA, TMA, Vaginal Bacterial Vaginosis Panel Vaginal yeast infection 02/03/2025 Assessment & Plan (02/03/2025 4:41 PM EDT): Orders: Chlamydia/N. Gonorrhoeae RNA, TMA, Vaginal Bacterial Vaginosis Panel Bacterial vaginosis 12/30/2024 Macromastia 10/10/2024 Overview (10/10/2024): I will contact [facility] about their policies on breast reduction referrals Assessment & Plan (11/19/2024 1:47 PM EDT): We will consult [facility] when her weight is around 205 pounds for BMI of 33 Class 2 severe obesity due t o excess calories with serious comorbidity and body mass index (BMI) of 39.0 to 39.9 in adult 07/04/2024 Assessment & Plan (11/19/2024 1:47 PM EDT): Denies side effects of Zepbound, specifically stomach upset, nausea, diarrhea. Increase Zepbound to 12.5 mg weekly Stable on Wellbutrin 150mg XL daily Eating less, focusing on healthy foods when she does eat. No soda, no munchies, no craving. Eats one protein (meat/pasta meal) daily Denies FH or personal history of thyroid cancer or MEN. She has had a cholecystectomy prior. Using a walking pad Referred to weight loss clinic previously, did not like the provider she was with. She could not lose weight, so could not proceed with surgery. Tried Phentermine in the past, but causes palpitations and insomnia Has been counseled on calorie reduction and increased physical activity. Assessment & Plan (10/10/2024 7:46 AM EDT): Starting weight 288 (04/2024) Today weight 249 (10/2024) Denies side effects of Zepbound, specifically stomach upset, nausea, diarrhea. increase to 10 mg weekly Stable on Wellbutrin 150mg XL daily Eating less, focusing on healthy foods when she does eat. No soda, no munchies, no craving. Eats one protein (meat/pasta meal) daily Denies FH or personal history of thyroid cancer or MEN. She has had a cholecystectomy prior. Using a walking pad Referred to weight loss clinic previously, did not like the provider she was with. She could not lose weight, so could not proceed with surgery. Tried Phentermine in the past, but causes palpitations and insomnia Has been counseled on calorie reduction and increased physical activity. Assessment & Plan (07/04/2024 9:08 AM EST): Increase Zepbound to 5mg per week Anxiety and depression 10/08/2023 Assessment & Plan (10/10/2024 7:46 AM EDT): Has therapist, reporting mood swings. Has referral in place to be linked with psych prescriber Still struggling to go to sleep or stay asleep, Trazodone 50mg is somewhat helpful Taking Paxil 20mg, increase to 30mg daily Works with patients in palliative care Lives with 2 daughters, son, and AMAB partner Assessment & Plan (2024 11:54 AM EDT): Paxil keeps her up at night, works well when she takes it during the day Will add Wellbutrin for additional mood effect, as well as weight loss indication Assessment & Plan (02/26/2024 3:00 PM EDT): Start Paxil 10mg for anxiety and depression Continue counseling 3 times weekly with [facility] Chronic hypertension 10/08/2023 Assessment & Plan (02/26/2024 2:59 PM EDT): During pregnancies To start Amlodipine 2.5mg daily if BP at home > 140/90 (cuff ordered today) History of section 10/08/2023 History of eclampsia 10/08/2023 History of delivery 10/08/2023 Intrauterine growth restrict ion (IUGR) affecting care of mother 10/08/2023 Marginal insertion of umbili efren cord affecting management of mother 10/08/2023 Unwanted fertility 10/08/2023 Hypercholesterolemia 09/06/2022 Postcoital bleeding 09/06/2022 Low grade squamous intraepit helial lesion (LGSIL) on cervical Pap smear 05/20/2019 Resolved Problems Problem Noted Date Diagnosed Date Resolved Date Chlamydia infection during 10/08/2023 10/10/2024 Assessment & Plan (07/04/2024 9:08 AM EST): Declines support around PreP or PeP currently Class 3 severe obesity due t o excess calories with serious comorbidity and body mass index (BMI) of 45.0 to 49.9 in adult 04/03/2018 Assessment & Plan (2024 11:56 AM EDT): Pt's BMI is greater than 30, she has been counseled about lifestyle changes to include reduced calorie diet that increases whole foods and fiber-containing foods and increased physical activity. Lifestyle changes have been insufficient to lower her BMI. Thus I would like to initiate a trial of Wegovy. Encounters Date Type Department Care Team Description 02/03/2025 3:45 PM EDT Office Visit [facility] [address] [place] [phone] Apurva Merino NP Vaginal itching (Primary Dx); Vaginal yeast infection 02/03/2025 Travel 02/03/2025 Telephone [facility] [address] [place] [address] Annette Long MD Nurse Triage 01/27/[address] [address] Annette Long MD 01/27/[address] [address] Annette Long MD 12/31/2024 Orders Only [address] [address] Annette Long MD Screening for cervical cancer (Primary Dx) 12/30/2024 Results Follow-Up [address] [address] Annette Long MD TSH W/Reflex to FT4, Cortisol Random, Basic Metabolic Panel, Additional followed-up results: 3 12/30/[address] [address] Annette Long MD Lab Orders 12/29/2024 2:00 PM EDT Procedure Visit [address] [address] Annette Long MD Low grade squamous intraepithelial lesion (LGSIL) on cervical Pap smear (Primary Dx); Class 2 severe obesity due to excess calories with serious comorbidity and body mass index (BMI) of 39.0 to 39.9 in adult ([facility]); Bacterial vaginosis 12/29/2024 Orders Only [address] [address] Annette Long MD 12/29/2024 Travel 12/25/[address] [address] Annette Long MD chart Prep 12/22/2024 Travel 11/27/2024 Telephone [facility] [address] [place], [place] [phone] Annette Long MD Prior Authorization 11/26/[address] [address] Annette Long MD Prior Authorization ( PA: Erik) 11/24/2024 Refill [facility] [address] [place] [address] Annette Long MD 11/19/[address] [address] Annette Long MD telephone call 11/18/2024 11:30 AM EDT Telemedicine [address] [address] Annette Long MD Class 2 severe obesity due to excess calories with serious comorbidity and body mass index (BMI) of 39.0 to 39.9 in adult ([facility]) (Primary Dx); Anxiety and depression; Macromastia 11/18/2024 Travel 11/17/2024 Telephone [facility] [address] [place] [phone] Annette Long MD chart prep 11/11/2024 Travel from Last 3 Months Immunizations Immunization Administration Dates Next Due DTP 09/02/1994, 2,1990,1990,1990 Hep B, Adolescent or Pediatric 01/20/2002,1999,12/11/1996 Hep B, adult 03/31/2019,01/20/2019 Hib (PRP-T) 06/04/1991, 1,1990,1989 IPV 03/04/1995 Influenza injectable quadriv alent preservative free 03/31/2019 Influenza, IIV3, injectable 03/31/2019 MMR 01/09/2019,09/02/1994,06/04/1991 OPV, Trivalent 02/03/1992, 1,1990,1989 TD (adult), 2 Lf tetanus tox oid, preservative free, adsorbed 01/20/2019,01/20/2002 Td (adult), unspecified 01/20/2019 Tdap 09/03/2019 Social History Tobacco Use Types Packs/Day Years Used Date Smoking Tobacco: Never Passive Smoke Exposure: Never Smokeless Tobacco: Never Tobacco Cessation:Counseling Given: Not Answered Alcohol Use Standard Drinks/Week Comments Never 0 [...] Q2 Not on file 02/22/2024 Comments No Intention Date Recorded No desire to become (finding) 0 10/08/2024 Sex and Gender Information Value Date Recorded Sex Assigned at Female 04/03/2022 10:29 AM EDT Legal Sex Female 10:29 AM EDT Gender Identity Female 04/03/2022 10:29 AM EDT Sexual Orientation Straight 04/03/2022 10 :29 AM EDT Last Filed Vital Signs Vital Sign Reading [...] Mass Index 37.64 02/03/2025 4:06 PM EDT Plan of Treatment Upcoming Encounters Date Type Department Care Team (Late st Contact Info) Description 04/01/2025 4:00 PM EDT Office Visit [facility] [address] [place], [place] [phone] Annette Long MD [address] [place], [place] [phone] Health Maintenance Due Date Last Done Comments HPV Vaccines (1 - 3-dose series) 2005 COVID-19 Vaccine ( - season) 2025 03/15/2021, 02/22/2021 Influenza Vaccine (#1) 2025 03/31/2019, 2018 Disability Screening 06/23/2025 06/23/2024 Family Planning (PISQ) 10/10/2025 10/10/2024 Alcohol/Substance Use Screening 12/29/2025 12/29/2024 Depression Screening 12/29/2025 12/29/2024, 12/30/19 SDOH Screening 12/29/2025 12/29/2024 Tobacco Screening 12/30/2025 12/30/2024 Cervical Cancer Screening 12/30/2027 HPV/Cotest 12/30/2027 12/29/2024, 070 10/2021, 12/06/2021, Additional history exists Pap Smear 12/30/2027 12/29/2024, 07/0 10/2021, 09/08/2020 Lipid Panel 02/21/2029 02/22/2024, 09/02/2020 DTaP/Tdap/Td Vaccines (7 - Td or Tdap) 09/02/2029 09/03/2019, 01/20/2019, 01/20/2019, Additional history exists Zoster Vaccines (1 of 2) 2040 RSV Patients and Patients Aged 60 years or older (1 - 1-dose 75+ series) 2065 HIB Vaccines Completed 06/04/1991, 06/1990, 1990, Additional history exists IPV Vaccines Completed 03/04/1995, 06/1991, 1990, Additional history exists Hepatitis B Vaccines Completed 03/31/2019, 01/20/2019, 01/20/2002, Additional history exists Hepatitis C Screening Completed 04/01/2022 HIV Screening Completed 12/29/2024, 04/01/2022 Hepatitis A Vaccines Aged Out No long er eligible based on patient's age to complete this topic Meningococcal B Vaccine Aged Out No l onger eligible based on patient's age to complete this topic Meningococcal Vaccine Aged Out No harvinder nasir eligible based on patient's age to complete this topic Pneumococcal Vaccine: Pediatrics (0 to 5 Years) and At-Risk Patients (6 to 49) Years Aged Out No longer eligible based on patient's age to complete this topic RSV under 20 months Aged Out No longe r eligible based on patient's age to complete this topic Rotavirus Vaccines Aged Out No longer eligible based on patient's age to complete this topic Procedures Procedure Name Priority Date/Time Associated Diagnosis Comments BACTERIAL VAGINOSIS PANEL Routine 02/03/2025 4:30 PM EDT Vaginal itching Vaginal yeast infection CHLAMYDIA/N. GONORRHOEAE RNA, TMA, UROGENITAL Routine 02/03/2025 4:30 PM EDT Vaginal itching Vaginal yeast infection CHLAMYDIA/N. GONORRHOEAE RNA, TMA, UROGENITAL Routine 12/29/2024 2:45 PM EDT Low grade squamous intraepithelial lesion (LGSIL) on cervical Pap smear BACTERIAL VAGINOSIS PANEL Routine 12/29/2024 2:45 PM EDT Low grade squamous intraepithelial lesion (LGSIL) on cervical Pap smear PAP SMEAR Routine 12/29/2024 2:44 PM EDT HPV DNA, LOW/HIGH RISK Routine 12/29/2024 2:44 PM EDT HIV 1/2 ANTIGEN/ANTIBODY, FOURTH GENERATION W/RFL Routine 12/29/2024 2:40 PM EDT Low grade squamous intraepithelial lesion (LGSIL) on cervical Pap smear BASIC METABOLIC PANEL Routine 12/29/2024 2:40 PM EDT Class 2 severe obesity due to excess calories with serious comorbidity and body mass index (BMI) of 39.0 to 39.9 in adult ([facility]) CORTISOL RANDOM Routine 12/29/2024 2:40 PM EDT Class 2 severe obesity due to excess calories with serious comorbidity and body mass index (BMI) of 39.0 to 39.9 in adult ([facility]) TSH W/REFLEX TO FT4 Routine 12/29/2024 2 :40 PM EDT Class 2 severe obesity due to excess calories with serious comorbidity and body mass index (BMI) of 39.0 to 39.9 in adult ([facility]) LIPID PANEL, STANDARD Routine 02/22/2024 2:54 PM EDT Obesity (BMI 30.0-34.9) ZZZ HISTORICAL HEPATITIS C ANTIBODY Routine 04/01/2022 10:23 AM EDT from Last 3 Months or Most Recently Relevant to Health Maintenance Results * (ABNORMAL) Bacterial Vaginosis Panel (02/03/2025 4:30 PM EDT) Only the most recent of2 resultswithin the time period is included. TRICHOMONAS VAGINALIS DETECTION BY PCR NOT DETECTED Not Detect [facility] BACTERIAL VAGINOSIS DETECTION BY PCR POSITIVE(A) Negative [facility] Comment:The BV organism targ ets [...] GROUP DETECTION BY PCR DETECTED(A) Not Detect [facility] Kathleen glab krusei PCR NOT DETECTED Not Detect [facility] Swab Vaginal structure / Unknown 02/03/2025 4:30 PM EDT 02/04/2025 1:07 PM EDT us Apurva Merino NP LAB MICROBIOLOGY - GENERAL ORDER JUAN Final Result [facility] [address] [place] [phone] * Chlamydia/N. Gonorrhoeae RNA, TMA, Vaginal (02/03/2025 4:30 PM EDT) Only the most recent of2 resultswithin the time period is included. CT PCR NOT DETECTED Not Detect. [facility] Comment:A not detected test result [...] psychologicalconsequences. NG PCR NOT DETECTED Not Detect. [facility] Comment:A not detected test result [...] MICROBIOLOGY - GENERAL ORDER JUAN Final Result Performing Organization Address [facility] Co de Phone Number [facility] [address] [place] [phone] * HPV DNA, Low/High Risk (12/29/2024 2:44 PM EDT) HPV High Risk Negative Negative [facility] HPV Genotype 16 Negative Negative [facility] HPV Genotype 18 Negative Negative [facility] Comment:HPV testing performe d at [facility] (CLIA#[id number]), [address] [place] [address].Testing for HPV was performed using the [employer] 6800system. The presence of HPV in the female genital tract isassociated with a number of diseases, including cervicalcarcinoma. The HPV DNA high risk pool tests for HPV 31, 33,35, 39, 45, 51, 52, 56, 58, 59, 66 and 68. The testing forHPV 16 and 18 genotypes has also been performed. A positiveresult indicates detection of nucleic acid sequences fromone or more subtypes, whereas a negative result indicatessuch sequences were not detected. 12/29/2024 2:44 PM EDT 12/31/2024 7:35 AM EDT us Annette Long MD LAB BLOOD ORDERABLES Final Res ult Performing Organization Address City/[facility]/ZIP Co de Phone Number [facility] [address] [place] [address] [phone] * Pap Smear (12/29/2024 2:44 PM EDT) 12/29/2024 2:44 PM EDT 12/31/2024 7:35 AM EDT Narrative [facility] - 01/08/2025 9:57 AM EDT ----- ------- Name: Megan Wesley Age/Sex: 34/F : 1990 Unit#: [id number] Attend Dr: Annette Long Re12/29/24 Status: DEP REF [facility] Disch: ----- ------- SPEC : [id number] RECD: 12/31/24 STATUS: GUCCI DHILLON NUM: [id number] ABIGAIL: 12/29/24-[address] [facility] [address]: Annette Long ENTERED: 12/31/24 SP TYPE: Pap Smr OT DR: ORDERED: Pap Smear Interpretation Satisfactory for evaluation. Negative for intraepithelial lesion or malignancy. No endocervical cells seen. Coccobacilli consistent with shift in vaginal adonay. HPV High Risk: Negative HPV Genotyping 16: Negative HPV Genotyping 18: Negative Clinical Information LMP: Unknown date Previous PAP test: LSIL, Unknown date Other history: , low grade squamous intraepithelial lesion on cervical Pap smear Material Received ThinPrep-Cervical PAP Disclaimer As of March 26, 2024, the technical services to include automated prescreening performed by the ThinPrep Imaging System, PAP screening and HPV testing will be performed at [facility] (CLIA #[id number]), [address] [place] [address]. Testing for HPV was performed using the [employer] 6800 system. The presence of HPV in the female genital tract is associated with a number of diseases, including cervical carcinoma. The HPV DNA high risk pool tests for HPV 31, 33, 35, 39, 45, 51, 52, 56, 58, 59, 66 and 68. The testing for HPV 16 and 18 genotypes has also been performed. A positive result indicates detection of nucleic acid sequences from one or more subtypes, whereas a negative result indicates such sequences were not detected. All professional services are performed by [facility] ([address] [place] [address]; ; CLIA #[id number]). The PAP Test is a screening procedure with the inherent possibility of both false negative and false positive results. Results should be interpreted in the context of historic and current clinical findings. Reliability of the PAP Test is enhanced by performing the test on a regular repetitive basis. CONTINUED ON NEXT PAGE ----- ------- Name: Megan Wesley Age/Sex: 34/F : 1990 Unit#: [id number] Attend Dr: Annette Long Re12/29/24 Status: DEP REF [facility] Disch: ----- ------- SPEC : [id number] RECD: 12/31/24 STATUS: GUCCI DHILLON NUM: [id number] ABIGAIL: 12/29/24-[address] [facility] [address]: Annette Long ENTERED: 12/31/24 SP TYPE: Pap Smr [facility] DR: ORDERED: Pap Smear ----- ------- Signed (signature on file) LEXA Mccabe (ASC) 01/08/25 0957 ----- ------- END OF REPORT us Annette Long MD LAB CYTOLOGY ORDERABLES Final Result [facility] [address] [place], [place] [phone] * Cortisol Random (12/29/2024 2:40 PM EDT) Cortisol Random 5.6 ug/dL [facility] Comment:Reference Range*: Be fore 10 am 6.2-19.4 ug/dL After 5 pm 2.3-11.9 ug/dL*Please interpret above results accordingly.This test was performed using the [employer] chemiluminescentmethod. Values obtained from different assay methods cannotbe used interchangeably.Patients receiving fludrocortisone, prednisolone orprednisone may show artificially elevated cortisol valuesdue to cross-reactivity. 12/29/2024 2:4 0 PM EDT 12/29/2024 4:06 PM EDT Annette Long MD LAB BLOOD ORDERABLES Final Res ult Performing Organization Address [facility] Co de Phone Number [facility] [address] [place] [phone] * TSH W/Reflex to FT4 (12/29/2024 2:40 PM EDT) Pathologist [facility] TSH reflex Free T4 1.35 0.32 - 4.0 uIU/mL [facility] Blood Venous blood specimen / Unknown 12/29/2024 2:40 PM EDT 12/29/2024 4:06 PM EDT Annette Long MD LAB BLOOD ORDERABLES Final Res ult Performing Organization Address [facility] Co de Phone Number [facility] [address] [place] [phone] * HIV-1/2 Antigen and Antibodies, Fourth Generation, with Reflexes (12/29/2024 2:40 PM EDT) Pathologist [facility] HIV AB/AG Nonreactive Nonreactive [facility] Comment:HIV-1 p24 Ag and/or HIV-1/HIV-2 Ab not detected.A test result that is nonreactive does not exclude thepossibility of exposure to or infection with HIV-1 and/orHIV-2. Nonreactive results in this assay for individualswith prior exposure to HIV-1 and/or HIV-2 may be due toantigen and antibody levels that are below the limit ofdetection of this assay.The [employer] HIV Ag/Ab Combo assay result andsupplemental assay results should be interpreted inconjunction with the patient's clinical presentation,history and other laboratory results. If the results areinconsistent with clinical evidence, additional testing issuggested to confirm the result. Blood Venous blood specimen / Unknown 12/29/2024 2:40 PM EDT 12/29/2024 4:06 PM EDT Annette Long MD LAB BLOOD ORDERABLES Final Res ult Performing Organization Address City/[facility]/ZIP Co de Phone Number [facility] [address] [place] [address] [phone] * (ABNORMAL) Basic Metabolic Panel (12/29/2024 2:40 PM EDT) Sodium 141 135 - 145 mmol/L [facility] Potassium 4.2 3.3 - 5.1 mmol/L [facility] Chloride 109(H) 96 - 108 mmol/L [facility] Carbon Dioxide 25 22 - 29 mmol/L [facility] Anion Gap 11(L) 12 - 20 [facility] Urea Nitrogen (BUN) 15 9 - 16 mg/dL [facility] Creatinine, Serum 0.87 0.5 - 1.4 mg/dL [facility] Estimated Glomerular Filt Rate >60 [facility] Comment:Chronic Kidney Disea se: Estimated GFR < 60 mL/min/1.47k2Yfycfa Kidney Disease: Estimated GFR < 15 mL/min/1.73m2 Glucose 87 60 - 115 mg/dL [facility] Calcium 9.0 8.4 - 10.2 mg/dL [facility] Blood Venous blood specimen / Unknown 12/29/2024 2:40 PM EDT 12/29/2024 4:06 PM EDT Annette Long MD LAB BLOOD ORDERABLES Final Res ult Performing Organization Address City/[facility]/ZIP Co de Phone Number [facility] [address] [place] [address] [phone] * (ABNORMAL) Lipid Panel, Standard (02/22/2024 2:54 PM EDT) Triglycerides 260(H) <150 mg/dL [facility] Comment:Desirable Triglyceri de: less than 150 mg/dLBorderline High Triglyceride 150-199 mg/dLHigh Triglyceride: 200-499 mg/dLVery High Triglyceride: greater than or equal to 5OO mg/dL Cholesterol 211(H) <200 mg/dL [facility] Comment:Desirable Cholestero l: less than 200 mg/dLBorderline High Cholesterol: 200-239 mg/dLHigh Cholesterol: greater than 239 mg/dL LDL Cholesterol Calculated 122(H) <100 mg/dL [facility] Comment:Desirable LDL: less than 100 mg/dLNear Optimal/Above Optimal LDL: 110- 129 mg/dLBorderline High LDL: 130-159 mg/dLHigh LDL: 160-189 mg/dLVery High LDL: greater than or equal to 190 mg/dL HDL Cholesterol 37(L) >40 mg/dL [facility] Comment:Desirable HDL: great er than 40 mg/dL Note: This HDL assay may give artificially low results in patients with liver disease. Blood Venous blood specimen / Unknown 02/22/2024 2:54 PM EDT 02/22/2024 4:21 PM EDT us Annette Long MD LAB BLOOD ORDERABLES Final Res ult [facility] [address] [place] [phone] * Hepatitis C Antibody (04/01/2022 10:23 AM EDT) Hepatitis C Antibody Nonreactive Nonreactive [facility] Comment: Antibodies to HCV not detected; does not exclude early acute HCV infection. HIV AB/AG Nonreactive Nonreactive [facility] Comment: HIV-1 p24 Ag and/or HIV-1/HIV-2 Ab not detected. A test result that is nonreactive does not exclude the possibility of exposure to or infection with HIV-1 and/or HIV-2. Nonreactive results in this assay for individuals with prior exposure to HIV-1 and/or HIV-2 may be due to antigen and antibody levels that are below the limit of detection of this assay. The [employer] HIV Ag/Ab Combo assay result and supplemental assay results should be interpreted in conjunction with the patient's clinical presentation, history and other laboratory results. If the results are inconsistent with clinical evidence, additional testing is suggested to confirm the result. Hepatitis B Surface Antigen Negative Negative CONVERTED LEGACY LABS 04/01/2022 10:2 3 AM EDT Krystian Carty MD HISTORICAL/NON ORDERABLE LABS Fi nal Result CONVERTED LEGACY LABS from Last 3 Months or Most Recently Relevant to Health Maintenance Insurance [employer] Care Teams Open Winder Relationship Specialty Start Date End Date Annette Long MD [address] [place] [address] PCP - General Family Medicine 02/01/22
--- OUTSIDE RECORDS SUMMARY | 2025-02-04 15:24 | XMS_ITS | Encounter Summary ---
Author Organization [employer] Address [address] [facility] 7t [place] [address] Care Team Providers Care Drawer Waxer Name Role Phone Annette Long MD Primary Care Provider [phone] Reason for Visit * Reason Onset Date Comments Appointment Request 10/10/2023 Encounter Details Date Type Department Care Team (Late st Contact Info) Description 10/10/[address] [facility] [address] [place], [place] [phone] Annette Long MD [address] [place] [address] [phone] Appointment Request Social History Tobacco Use Types Packs/Day Years Used Date Smoking Tobacco: Never Assessed Comments Unknown Sex and Gender Information Value Date Recorded Sex Assigned at Female 04/03/2022 10:29 AM EDT Legal Sex Female 10:29 AM EDT Gender Identity Female 04/03/2022 10:29 AM EDT Sexual Orientation Straight 04/03/2022 10 :29 AM EDT documented as of this encounter Miscellaneous Notes * Telephone Encounter - Kendell Palencia - 10/10/2023 9:24 AM EDT Tc from patient calling to cancel TP appt due to work and would like a call back to reschedule apptwriter did inform the patient there will be no availability until January documented in this encounter Plan of Treatment Upcoming Encounters Date Type Department Care Team (Late st Contact Info) Description 04/01/2025 4:00 PM EDT Office Visit [facility] [address] [place], [place] [phone] Annette Long MD [address] [place] [address] documented as of this encounter Visit Diagnoses Not on filedocumented in this encounter Care Teams Drawer Waxer Relationship Specialty Start Date End Date Annette Long MD 230 [place] [address] PCP - General Family Medicine 02/01/22 documented as of this encounter
--- OUTSIDE RECORDS SUMMARY | 2025-02-04 15:24 | XMS_ITS | Encounter Summary ---
Author Organization [email or web address] Address [address] [facility] [address] 7t [place] [address] Care Team Providers Care Commercial Real Estate Paralegal Name Role Phone Annette Long MD Primary Care Provider [phone] Encounter Details Date Type Department Care Team (Late st Contact Info) Description 09/03/2024 Orders Only [facility] 230 [place], [place] [phone] Annette Long MD [address] [place], [place] [phone] Social History Tobacco Use Types Packs/Day Years [...] is your housing situation today? I have risarigo palafox 02/22/[address] you [...] Description 04/01/2025 4:00 PM EDT Office Visit [facility] [address] [place] [address] Annette Long MD [address] [place] [address] documented as of this encounter Visit Diagnoses Not on filedocumented in this encounter Additional Health Concerns Assessment Noted Time PHQ-9 Depression Total Score: 3 08/26/19 25 3:18 PM EDT documented as of this encounter Care Teams Commercial Real Estate Paralegal Relationship Specialty Start Date End Date Annette Long MD [address] [place] [address] PCP - General Family Medicine 02/01/22 documented as of this encounter
--- OUTSIDE RECORDS SUMMARY | 2025-02-04 15:24 | XMS_ITS | Clinical Summary ---
Author Organization [facility] Address [address] [place] [address] Phone Care Team Providers Care Solar Installation Crew Supervisor Name Role Phone Unavailable Primary Care Provider Unavailabl e Immunizations Immunization Administration Dates Next Due DTP 09/02/1994, 2,1990,1990,1990 Hep B, ped/adol 01/20/2002,12/08/1999,12/11/1996 Hib (PRP-T) 06/04/1991, 1,1990,1989 IPV 03/04/1995 MMR 09/02/1994,06/04/1991 OPV 02/03/1992, 1,1990,1989 Td (adult) (MBL), 2 Lf tetan us toxoid, PF, adsorbed 01/20/2002 Social History Tobacco Use Types Packs/Day Years Used Date Smoking Tobacco: Never Assessed Comments Unknown Sex and Gender Information Value Date Recorded Sex Assigned at Not on file Legal Sex Female 4:01 PM EDT Gender Identity Not on file Sexual Orientation Not on file Plan of Treatment Health Maintenance Due Date Last Done Comments DTaP,Tdap,and Td Vaccines (6 - Tdap) 01/21/2002 01/20/2002, 09/02/1994, 02/03/1992, Additional history exists Varicella Vaccines (1 of 2 - 13+ 2-dose series) 2003 HPV Vaccines (1 - 3-dose SCDM series) 2017 Influenza Vaccines (#1) 2025 COVID-19 Vaccine ( - season) 2025 HIB Vaccines Completed 06/04/1991, 06/0 06/1990, 1990, Additional history exists MMR Vaccines Completed 09/02/1994, 06/04/1991 IPV Vaccines Completed 03/04/1995, 09/0 06/1991, 1990, Additional history exists Hepatitis B Vaccines Completed 01/20/2002, 12/08/1999, 12/11/1996 Hepatitis A Vaccines Aged Out No long er eligible based on patient's age to complete this topic Men B Vaccine Aged Out No longer elig ible based on patient's age to complete this topic Meningococcal Vaccine Aged Out No harvinder nasir eligible based on patient's age to complete this topic Pneumococcal Vaccine Aged Out No long er eligible based on patient's age to complete this topic
--- OUTSIDE RECORDS SUMMARY | 2025-02-04 15:24 | XMS_ITS | Encounter Summary ---
Author Organization [employer] Address [address] [facility] [address] 7t [place] [address] Care Team Providers Care Real Estate Operations Manager Name Role Phone Annette Long MD Primary Care Provider [phone] Encounter Details Date Type Department Care Team (Late st Contact Info) Description 06/13/2024 Orders Only [facility] 230 [place], [place] [phone] Annette Long MD 230 [place], [place] [phone] Social History Tobacco Use Types Packs/Day Years [...] Description 04/01/2025 4:00 PM EDT Office Visit [facility] [address] [place] [address] Annette Long MD 230 [place] [address] documented as of this encounter Visit Diagnoses Not on filedocumented in this encounter Additional Health Concerns Assessment Noted Time PHQ-9 Depression Total Score: 12 024 1:42 PM EDT documented as of this encounter Care Teams Real Estate Operations Manager Relationship Specialty Start Date End Date Annette Long MD [address] [place] [address] [phone] PCP - General Family Medicine 02/01/22 documented as of this encounter
== END 2025-02-03 13:07 | disposition home or self-care (01) ==
LOC: HO.HHCLNP 13:06
PROVIDERS: Visit Provider Nurse Practitioner Family
DX: N89.8 Other specified noninflammatory disorders of vagina (principal); B37.31 Acute candidiasis of vulva and vagina; Z11.3 Encounter for screening for infections with a predominantly sexual mode of transmission; Z11.8 Encounter for screening for other infectious and parasitic diseases
CPT/HCPCS: 81515; 87491; 87591

== ENCOUNTER 2025-03-04 17:02 | Outpatient (REF) | payer MEDICAID, SELFPAY ==
--- OUTSIDE RECORDS SUMMARY | 2025-03-04 11:15 | XMS_ITS | Encounter Summary ---
Author Organization [employer] Address [address] [facility] [address] 7t [place] [address] Care Team Providers Care Sheeter Waxer Operator Name Role Phone Annette Long MD Primary Care Provider [phone] Encounter Details Date Type Department Care Team (Late st Contact Info) Description 03/04/2025 11:15 AM EDT Office Visit [facility]INE 230 [place], [place] [phone] Jennifer Oviedo MD 230 [place], [place] [phone] Vaginal discharge (Primary Dx) Social History Tobacco Use Types [...] Sign Reading Time Taken Comments Blood Pressure 110/80 03/04/2025 11:44 AM EDT Pulse 89 03/04/2025 11:44 AM EDT Temperature 36.4 C (97.5 F) 03/04/2025 11:44 AM EDT Respiratory Rate 17 03/04/2025 11:44 AM EDT Oxygen Saturation - - Inhaled Oxygen Concentration - - Weight 103 kg (226 lb 9.6 oz) 03/04/2025 11:44 A M EDT Height - - Body Mass Index 36.57 02/03/2025 4:06 PM EDT documented in this encounter Plan of Treatment Upcoming Encounters Date Type Department Care Team (Late st Contact Info) Description 03/19/2025 2:00 PM EDT Office Visit [facility] MEDICINE [address] [place] [address] Ira Hough CNM 230 [place] [address] 04/01/2025 4:00 PM EDT Office Visit [facility] MED[facility]INE [address] [place] [address] Annette Long MD 230 [place] [address] Scheduled Orders Name Type Priority Associated Diagnoses Orde r Schedule Bacterial Vaginosis, Yeast and Trich Microbiology Routine Vaginal discharge Expected: 03/04/2025 (Approximate), Expires: 03/04/2026 Chlamydia/N. Gonorrhoeae RNA, TMA, Vagina Microbiology Routine Vaginal discharge Ordered: 03/04/2025 documented as of this encounter Visit Diagnoses Diagnosis Vaginal discharge- Primary Leukorrhea, not specified as infective documented in this encounter Additional Health Concerns Assessment Noted Time PHQ-9 Depression Total Score: 1 12/30/19 25 2:40 PM EDT documented as of this encounter Care Teams Sheeter Waxer Operator Relationship Specialty Start Date End Date Annette Long MD [address] [place] [address] PCP - General Family Medicine 02/01/22 documented as of this encounter
--- OUTSIDE RECORDS SUMMARY | 2025-03-04 17:05 | XMS_ITS | Encounter Summary ---
Author Organization [email or web address] Address [address] [facility] 7t [place] [address] Care Team Providers Care Lawn And Tree Service Spray Supervisor Name Role Phone Annette Long MD Primary Care Provider [phone] Encounter Details Date Type Department Care Team (Late st Contact Info) Description 02/28/2023 Orders Only [address] [address] Oxana Echavarria Social History Tobacco Use Types [...] Description 03/19/2025 2:00 PM EDT Office Visit [address] [address] Ira Hough CNM [address] [place] [address] 04/01/2025 4:00 PM EDT Office Visit [address] [address] Annette Long MD [address] [place] [address] [phone] documented as of this encounter Procedures Procedure Name Priority Date/Time Associated Diagnosis Comments COLPOSCOPY Routine 09/30/2020 12:00 AM EDT HM PAP/HPV Routine 09/08/2020 documented in this encounter Results * Colposcopy (09/30/2020 12:00 AM EDT) us Historical Provider MD IN CLINIC/BEDSIDE ORDERAB LES Final Result * Hm Pap Smear (09/08/2020) us Historical Provider HEALTH MAINTENANCE Final Result documented in this encounter Visit Diagnoses Not on filedocumented in this encounter Care Teams Lawn And Tree Service Spray Supervisor Relationship Specialty Start Date End Date Annette Long MD [address] [place] [address] PCP - General Family Medicine 02/01/22 documented as of this encounter
--- OUTSIDE RECORDS SUMMARY | 2025-03-04 17:05 | XMS_ITS | Encounter Summary ---
Author Organization [employer] Address [address] [facility] [address] 7t [place] [address] Care Team Providers Care Optomechanical Technician Name Role Phone Annette Long MD Primary Care Provider [phone] Reason for Visit * Reason Onset Date Comments Med Refill 01/27/2025 Encounter Details Date Type Department Care Team ([facility] st Contact Info) Description 01/27/[address] [facility] 230 [place], [place] [phone] Annette Long MD 230 [place] [address] Social History Tobacco Use Types Packs/Day Years [...] Description 03/19/2025 2:00 PM EDT Office Visit [facility] [address] [place] [address] Ira Hough CNM [address] [place] [address] 04/01/2025 4:00 PM EDT Office Visit [facility] [address] [place] [address] Annette Long MD [address] [place] [address] documented as of this encounter Visit Diagnoses Not on filedocumented in this encounter Additional Health Concerns Assessment Noted Time PHQ-9 Depression Total Score: 1 12/30/19 25 2:40 PM EDT documented as of this encounter Care Teams Optomechanical Technician Relationship Specialty Start Date End Date Annette Long MD [address] [place] [address] PCP - General Family Medicine 8/31/22 documented as of this encounter
--- OUTSIDE RECORDS SUMMARY | 2025-03-04 17:05 | XMS_ITS | Encounter Summary ---
Author Organization [employer] Address [address] [facility] [address] 7t [place] [address] Care Team Providers Care Carpet Sewer Name Role Phone Annette Long MD Primary Care Provider [phone] Encounter Details Date Type Department Care Team (Latest Contact Info) Description 03/04/2025 Travel Social History Tobacco Use Types Packs/Day [...] Description 03/19/2025 2:00 PM EDT Office Visit [facility] MED[facility]INE [address] [place] [address] Ira Hough CNM [address] [place] [address] 04/01/2025 4:00 PM EDT Office Visit [facility] MED[facility] [address] [place] [address] Annette Long MD [address] [place] [address] documented as of this encounter Visit Diagnoses Not on filedocumented in this encounter Additional Health Concerns Assessment Noted Time PHQ-9 Depression Total Score: 1 12/30/19 25 2:40 PM EDT documented as of this encounter Care Teams Carpet Sewer Relationship Specialty Start Date End Date Annette Long MD [address] [place] [address] [phone] PCP - General Family Medicine 02/01/22 documented as of this encounter
--- OUTSIDE RECORDS SUMMARY | 2025-03-04 17:05 | XMS_ITS | Encounter Summary ---
Author Organization [facility] Address [address] [place] [address] Phone Care Team Providers Care Women'S Studies Lecturer Name Role Phone Unavailable Primary Care Provider Unavailabl e Encounter Details Date Type Department Care Team (Late st Contact Info) Description 05/16/2011 Documentation [facility] Family Medicine [address] [place] [address] Family Medicine, Physician [address] [place] [address] Social History Tobacco Use Types [...]
--- OUTSIDE RECORDS SUMMARY | 2025-03-04 17:05 | XMS_ITS | Encounter Summary ---
Author Organization [employer] Address [address] [facility] [address] 7t [place] [address] Care Team Providers Care Knee Bolter Name Role Phone Annette Long MD Primary Care Provider [phone] Reason for Visit * Reason Onset Date Comments Med Refill 05/15/2024 Encounter Details Date Type Department Care Team ([facility] st Contact Info) Description 05/15/2024 Refill [facility] 230 [place], [place] [phone] Annette Long MD 230 [place] [address] Class 3 severe obesity due to excess [...] Description 03/19/2025 2:00 PM EDT Office Visit [facility] MEDICINE [address] [place] [address] Ira Hough CNM [address] [place] [address] 04/01/2025 4:00 PM EDT Office Visit [facility] MED[facility]INE [address] [place] [address] Annette Long MD [address] [place] [address] documented as of this encounter Visit Diagnoses Diagnosis Class 3 severe obesity due to excess calories with serious comorbidity and body mass index (BMI) of 45.0 to 49.9 in adult (HCC) documented in this encounter Additional Health Concerns Assessment Noted Time PHQ-9 Depression Total Score: 12 024 1:42 PM EDT documented as of this encounter Care Teams Knee Bolter Relationship Specialty Start Date End Date Annette Long MD [address] [place] [address] PCP - General Family Medicine 02/01/22 documented as of this encounter
--- OUTSIDE RECORDS SUMMARY | 2025-03-04 17:05 | XMS_ITS | Encounter Summary ---
Author Organization [employer] Address [address] [facility] [address] 7t [place] [address] Care Team Providers Care Principal Electrical Engineer Name Role Phone Annette Long MD Primary Care Provider [phone] Encounter Details Date Type Department Care Team (Late st Contact Info) Description 06/13/2024 Orders Only [facility] MEDICINE 230 [place], [place] [phone] Annette Long MD 230 [place], [place] [phone] Social History Tobacco Use Types Packs/Day Years [...] Visit [facility] MEDICINE [address] [place] [address] Ira Hough CNM [address] [place] [address] 04/01/2025 4:00 PM EDT Office Visit [facility] MEDICINE [address] [place] [address] Annette Long MD [address] [place] [address] [phone] documented as of this encounter Visit Diagnoses Not on filedocumented in this encounter Additional Health Concerns Assessment Noted Time PHQ-9 Depression Total Score: 12 024 1:42 PM EDT documented as of this encounter Care Teams Principal Electrical Engineer Relationship Specialty Start Date End Date Annette Long MD [address] [place] [address] PCP - General Family Medicine 02/01/22 documented as of this encounter
--- OUTSIDE RECORDS SUMMARY | 2025-03-04 17:05 | XMS_ITS | Encounter Summary ---
Author Organization [employer] Address [address] [facility] 7t [place] [address] Care Team Providers Care Pouncer Name Role Phone Annette Long MD Primary Care Provider [phone] Reason for Referral * Consultation (Routine) - Closed Specialty Diagnoses / Procedures Referred By Reginald maynard Referred To Contact Nutrition Diagnoses Class 3 severe obesity due to excess calories with serious comorbidity and body mass index (BMI) of 45.0 to 49.9 in adult ([facility]) Annette Long MD 230 [place] [address] Phone: tel: fax: Referral ID Status Reason Start Date Expiration Date V isits Requested Visits Authorized [id number] Closed Consult and Treat 03/21/2024 03/21/2025 1 1 Encounter Details Date Type Department Care Team (Late st Contact Info) Description 03/21/2024 Orders Only [facility] MED[facility]INE 230 [place], [place] [phone] Annette Long MD 230 [place], [place] [phone] Class 3 severe obesity due to excess calories with serious comorbidity and body mass index (BMI) of 45.0 to 49.9 in adult ([facility]) (Primary Dx) Social History Tobacco Use Types [...] Description 03/19/2025 2:00 PM EDT Office Visit [facility] MEDICINE [address] [place] [address] Ira Hough CNM 230 [place] [address] 04/01/2025 4:00 PM EDT Office Visit [facility] MEDICINE [address] [place] [address] Annette Long MD [address] [place] [address] Scheduled Referrals Name Type Priority Associated Diagnoses Orde r Schedule Referral to Nutrition Therapy Outpatient Referral Routine Class 3 severe obesity due to excess calories with serious comorbidity and body mass index (BMI) of 45.0 to 49.9 in adult ([facility]) Expected: 03/21/2024 (Approximate), Expires: 03/21/2025 documented as of this encounter Visit Diagnoses Diagnosis Class 3 severe obesity due to excess calories with serious comorbidity and body mass index (BMI) of 45.0 to 49.9 in adult ([facility])- Primary documented in this encounter Additional Health Concerns Assessment Noted Time PHQ-9 Depression Total Score: 12 024 1:42 PM EDT documented as of this encounter Care Teams Pouncer Relationship Specialty Start Date End Date Annette Long MD [address] [place] [address] PCP - General Family Medicine 02/01/22 documented as of this encounter
--- OUTSIDE RECORDS SUMMARY | 2025-03-04 17:05 | XMS_ITS | Encounter Summary ---
Author Organization [employer] Address [address] [facility] [address] 7t [place] [address] Care Team Providers Care Lead Supply Worker Name Role Phone Annette Long MD Primary Care Provider [phone] Reason for Visit * Reason Comments Med Refill Encounter Details Date Type Department Care Team ([facility] st Contact Info) Description 09/01/2024 Refill [facility] MEDICINE 230 [place], [place] [phone] Annette Long MD 230 [place], [place] [phone] Social History Tobacco Use Types Packs/Day Years [...] Description 03/19/2025 2:00 PM EDT Office Visit [facility] MEDICINE [address] [place] [address] Ira Hough CNM [address] [place] [address] 04/01/2025 4:00 PM EDT Office Visit [facility] MEDICINE [address] [place] [address] Annette Long MD [address] [place] [address] documented as of this encounter Visit Diagnoses Not on filedocumented in this encounter Additional Health Concerns Assessment Noted Time PHQ-9 Depression Total Score: 3 08/26/19 25 3:18 PM EDT documented as of this encounter Care Teams Lead Supply Worker Relationship Specialty Start Date End Date Annette Long MD [address] [place] [address] [phone] PCP - General Family Medicine 02/01/22 documented as of this encounter
--- OUTSIDE RECORDS SUMMARY | 2025-03-04 17:05 | XMS_ITS | Encounter Summary ---
Author Organization [employer] Address [address] [facility] [place] [address] Care Team Providers Care Shop Foreman Name Role Phone Annette Long MD Primary Care Provider [phone] Reason for Visit * Reason Onset Date Comments Nurse Triage 03/04/2025 Encounter Details Date Type Department Care Team ([facility] st Contact Info) Description 03/04/2025 Telephone [facility] [address] [place], [place] [phone] Annette Long MD 230 [place], [place] [phone] Nurse Triage Social History Tobacco Use Types [...] your housing situation today? I have risa aplafox 02/22/[address] you li [...] Encounter - Ana Maria Calabrese LPN - 03/04/2025 10:41 AM EDT Triage call to patient who reports vaginal discharge starting on Sunday had menses all last week and then after intercourse developed foul odor horowitz white vaginal discharge. No back pain reported no fever. Patient reports chronic issue with BV and has followed PCP advice of use of Boric Acid tabletinserts. No relief and infection follow intercourse per patient. Disposition reviewed and patient has upcoming appointment with Shaunna COPE in two weeks but requires treatment now. ASK/ today at 11:15am Protocol Used: Vaginal Discharge (Adult) Protocol-Based Disposition: See in Office or Video Visit within 3 Days Positive Triage Questions: * Bad smelling vaginal discharge * Abnormal color vaginal discharge (i.e., yellow, green, horowitz) * All higher-acuity triage questions were negative Care Advice Discussed: * Reasons To Call Back - You become worse * Telephone Encounter - Micah Navarro - 03/04/2025 10:21 AM EDT Symptom: Vaginal Symptoms - Not Bleeding Outcome: Schedule an urgent appointment (within 4 hours) or talk to a nurse or provider soon Reason: Foul-smelling vaginal discharge The caller accepted this outcome. Contact pt at [phone] documented in this encounter Plan of Treatment Upcoming Encounters Date Type Department Care Team (Late st Contact Info) Description 03/19/2025 2:00 PM EDT Office Visit [facility] [address] [place], [place] [phone] Ira Hough CNM [address] [place] [address] 04/01/2025 4:00 PM EDT Office Visit [address] [phone] Annette Long MD [address] [place] [address] documented as of this encounter Visit Diagnoses Not on filedocumented in this encounter Additional Health Concerns Assessment Noted Time PHQ-9 Depression Total Score: 1 12/30/19 25 2:40 PM EDT documented as of this encounter Care Teams Shop Foreman Relationship Specialty Start Date End Date Annette Long MD [address] [place] [address] [phone] PCP - General Family Medicine 02/01/22 documented as of this encounter
--- OUTSIDE RECORDS SUMMARY | 2025-03-04 17:05 | XMS_ITS | Encounter Summary ---
Author Organization [employer] Address [address] [facility] 7t [place] [address] Care Team Providers Care Construction Trades Teacher Name Role Phone Annette Long MD Primary Care Provider Reason for Visit * Reason Onset Date Comments Appointment Request 10/10/2023 Encounter Details Date Type Department Care Team (Late st Contact Info) Description 10/10/2023 Telephone [facility] MED[facility]INE [address] [place], [place] [phone] Annette Long MD [address] [place], [place] [phone] Appointment Request Social History Tobacco Use Types [...] Description 03/19/2025 2:00 PM EDT Office Visit [facility] [address] [place], [place] [phone] Ira Hough CNM [address] [place], [place] [phone] 04/01/2025 4:00 PM EDT Office Visit [facility]INE [address] [place], [place] [phone] Annette Long MD [address] [place], [place] [phone] documented as of this encounter Visit Diagnoses Not on filedocumented in this encounter Care Teams Construction Trades Teacher Relationship Specialty Start Date End Date Annette Long MD [address] [place] [phone] PCP - General Family Medicine 02/01/22 documented as of this encounter
--- OUTSIDE RECORDS SUMMARY | 2025-03-04 17:05 | XMS_ITS | Encounter Summary ---
Author Organization [employer] Address [address] [facility] 7t [place] [address] Care Team Providers Care Regasification Plant Operator Name Role Phone Annette Long MD Primary Care Provider Reason for Referral * Consultation (Routine) - Authorized Specialty Diagnoses / Procedures Referred By Reginald maynard Referred To Contact Midwifery Diagnoses Bacterial vaginosis Annette Long MD [address] [place] [phone] Phone: tel: fax: Ira Hough CNM [address] [place] [address] Phone: tel: fax: Referral ID Status Reason Start Date Expiration Date Visits Requested Visits Authorized [id number] Authorized Consult and Treat 02/13/2025 02/13/2026 1 1 Encounter Details Date Type Department Care Team ([facility] st Contact Info) Description 02/13/2025 Orders Only [facility] MEDICINE [address] [place] [address] [phone] Annette Long MD [address] [place] [phone] Bacterial vaginosis (Primary Dx) Social History Tobacco Use Types [...] Description 03/19/2025 2:00 PM EDT Office Visit [facility]INE [address] [place] [address] Ira Hough CNM [address] [place] [address] 04/01/2025 4:00 PM EDT Office Visit [facility] MED[facility]INE [address] [place] [address] Annette Long MD [address] [place] [address] Scheduled Referrals Name Type Priority Associated Diagnoses Order Schedule Referral to Gynecology (Ira) Outpatient Referral Routine Bacterial vaginosis Expected: 02/13/2025 (Approximate), Expires: 02/13/2026 documented as of this encounter Visit Diagnoses Diagnosis Bacterial vaginosis- Primary Unspecified vaginitis and vulvovaginitis documented in this encounter Additional Health Concerns Assessment Noted Time PHQ-9 Depression Total Score: 1 12/30/19 25 2:40 PM EDT documented as of this encounter Care Teams Regasification Plant Operator Relationship Specialty Start Date End Date Annette Long MD [address] [place] [phone] PCP - General Family Medicine 02/01/22 documented as of this encounter
--- OUTSIDE RECORDS SUMMARY | 2025-03-04 17:05 | XMS_ITS | Encounter Summary ---
Author Organization [employer] [facility] Address [address] [facility] 7t [place] [address] Care Team Providers Care Photo Booth Operator Name Role Phone Annette Long MD Primary Care Provider [phone] Encounter Details Date Type Department Care Team (Late st Contact Info) Description 02/28/2023 Orders Only [facility] MEDICINE [address] [place] [phone] ProviderLidia MD Social History Tobacco Use Types Packs/Day Years [...] Description 03/19/2025 2:00 PM EDT Office Visit [address] [address] Ira Hough CNM [address] [place] [address] 04/01/2025 4:00 PM EDT Office Visit [address] [address] Annette Long MD [address] [place] [address] [phone] documented as of this encounter Procedures Procedure Name Priority Date/Time Associated Diagnosis Comments HM PAP/HPV Routine 12/06/2021 documented in this encounter Results * Hm Pap Smear (12/06/2021) us Historical Provider HEALTH MAINTENANCE Final Result documented in this encounter Visit Diagnoses Not on filedocumented in this encounter Care Teams Photo Booth Operator Relationship Specialty Start Date End Date Annette Long MD [address] [place] [phone] PCP - General Family Medicine 02/01/22 documented as of this encounter
--- OUTSIDE RECORDS SUMMARY | 2025-03-04 17:05 | XMS_ITS | Encounter Summary ---
Author Organization [employer] Address [address] [facility] [address] [place] [address] Care Team Providers Care Payroll Assistant Name Role Phone Annette Long MD Primary Care Provider [phone] Encounter Details Date Type Department Care Team (Late st Contact Info) Description 12/31/2024 Orders Only [facility]INE 230 [place], [place] [phone] Annette Long MD [address] [place], [place] [phone] Screening for cervical cancer (Primary Dx) Social [...] Description 03/19/2025 2:00 PM EDT Office Visit [facility] [address] [place] [phone] Ira Hough CNM [address] [place] [phone] 04/01/2025 4:00 PM EDT Office Visit [facility] [address] [place] [phone] Annette Long MD [address] [place] [phone] Scheduled Orders Name Type Priority Associated Diagnoses [...] documented as of this encounter Care Teams Payroll Assistant Relationship Specialty Start Date End Date Annette Long MD [address] [place] [address] PCP - General Family Medicine 02/01/22 documented as of this encounter
--- OUTSIDE RECORDS SUMMARY | 2025-03-04 17:05 | XMS_ITS | Clinical Summary ---
Author Organization [facility] Address [address] [place] [phone] Phone Care Team Providers Care Med Admin Name Role Phone Unavailable Primary Care Provider [...] Vaccines (#1) 2025 COVID-19 Vaccine ( - 2024- season) 2025 HIB Vaccines Completed 06/04/1991, 06/0 [...]
--- OUTSIDE RECORDS SUMMARY | 2025-03-04 17:05 | XMS_ITS | Encounter Summary ---
Author Organization [employer] Address [address] [facility] [address] [place] [address] Care Team Providers Care Enrollment Advisor Name Role Phone Annette Long MD Primary Care Provider [phone] Reason for Visit * Reason Onset Date Comments Medication Question 03/19/2024 Encounter Details Date Type Department Care Team ([facility] Contact Info) Description 03/19/2024 Telephone [facility] MEDICINE 230 [place], [place] [phone] Annette Long MD 230 [place], [place] [phone] Medication Question Social History Tobacco Use Types [...] 03/19/2024 3:43 PM EDT TC placed to [facility], they have Wegovy 0.25mg in stock. They will contact [facility] for a transfer and call [...] stating its on back order at the [facility] and no other [facility] has it in stock at the moment. Pharmacy advised pt call to request a possible alternative. Please contact pt at [phone]. documented in this encounter Plan of Treatment Upcoming Encounters Date Type Department Care Team (Late st Contact Info) Description 03/19/2025 2:00 PM EDT Office Visit [facility] MEDICINE [address] [place] [address] Ira Hough CNM [address] [place], [place] [phone] 04/01/2025 4:00 PM EDT Office Visit [facility] MEDICINE [address] [place] [address] Annette Long MD 230 [place] [address] documented as of this encounter Visit Diagnoses Not on filedocumented in this encounter Additional Health Concerns Assessment Noted Time PHQ-9 Depression Total Score: 12 024 1:42 PM EDT documented as of this encounter Care Teams Enrollment Advisor Relationship Specialty Start Date End Date Annette Long MD 230 [place], [place] [phone] PCP - General Family Medicine 02/01/22 documented as of this encounter
--- OUTSIDE RECORDS SUMMARY | 2025-03-04 17:05 | XMS_ITS | Clinical Summary ---
Author Organization [employer] Address [address] [facility] 7t [place] [address] Care Team Providers Care Food Service Worker Name Role Phone Annette Long MD Primary Care Provider [phone] Allergies No known active allergies Medications * This document contains information received from the source organization and may not represent a complete record from that organization. amLODIPine (Norvasc) 2.5 MG tablet Take 1 tablet (2.5 mg) by mouth Once per day. For blood pressure 90 tablet 3 02/22/20 24 Active buPROPion XL (Wellbutrin XL) 150 MG 24 hr tablet Take 1 tablet (150 mg) by mouth Once per day. Do not crush, chew, or split. 90 tablet 3 10/09/19 25 026 Active traZODone (Desyrel) 100 MG tablet Take 1 tablet (100 mg) by mouth at bedtime. 90 tablet 1 11/19/19 25 Active venlafaxine XR (Effexor XR) 37.5 MG 24 hr capsule Take 1 capsule (37.5 mg) by mouth Once per day. To cross taper with Paxil, take 20mg Paxil and 37.5mg of Effexor together for one month. 30 capsule 12/30/19 026 Active Zepbound 12.5 MG/0.5ML solution auto-injector INJECT ONE PEN (=12.5MG) SUBCUTANEOUSLY ONCE A WEEK DIRECTED 2 mL 01/29/20 25 Active hydrocortisone 2.5 % cream Apply topically 2 times daily. 10 g 1 02/04/20 25 Active metroNIDAZOLE (Metrogel) 0.75 % vaginal gel Insert into the vagina at bedtime for 7 days. 70 g 03/04/20 25 025 Active PARoxetine (Paxil) 40 MG tablet Take 1 tablet (40 mg) by mouth in the morning. 90 tablet 1 11/19/19 25 025 Discontinu ed(Therapy completed) fluconazole (Diflucan) 150 MG tablet Take 1 tablet (150 mg) by mouth 1 (one) time per week for 14 days. 2 tablet 02/04/20 25 025 metroNIDAZOLE (Metrogel) 0.75 % vaginal gel Insert into the vagina at bedtime for 7 days. 70 g 02/06/20 25 025 Discontinu ed(Therapy completed) Active Problems Problem Noted Date Diagnosed Date [...] depression Continue counseling 3 times weekly with [place] Chronic hypertension 10/08/2023 Assessment & Plan (02/26/2024 [...] Encounters Date Type Department Care Team Description 03/04/2025 11:15 AM EDT Office Visit [facility] [address] [place] [address] Jennifer Oviedo MD Vaginal discharge (Primary Dx) 03/04/2025 Travel 03/04/2025 Telephone [facility] [address] [place] [address] Annette Long MD Nurse Triage 02/13/2025 Orders Only [facility] [address] [place] [address] Annette Long MD Bacterial vaginosis (Primary Dx) 02/10/[address] [address] Roxana Victoria MA Pt requesting appt 02/03/2025 3:45 PM EDT Office Visit [address] [address] Apurva Merino NP Vaginal itching (Primary Dx); Vaginal yeast infection 02/03/2025 Travel 02/03/[address] [address] Annette Long MD Nurse Triage 01/27/[address] [address] Annette Long MD 01/27/[address] [address] Annette Long MD 12/31/2024 Orders Only [address] [address] Annette Long MD Screening for cervical cancer (Primary Dx) 12/30/2024 Results Follow-Up [address] [address] Annette Long MD TSH W/Reflex to FT4, Cortisol Random, Basic Metabolic Panel, Additional followed-up results: 3 12/30/[address] [address] Annette Long MD Lab Orders 12/29/2024 2:00 PM EDT Procedure Visit [address] [address] Annette Long MD Low grade squamous intraepithelial lesion (LGSIL) on cervical Pap smear (Primary Dx); Class 2 severe obesity due to excess calories with serious comorbidity and body mass index (BMI) of 39.0 to 39.9 in adult ([facility]); Bacterial vaginosis 12/29/2024 Orders Only [address] [address] Annette Long MD 12/29/2024 Travel 12/25/2024 Telephone [facility] [address] [place] [phone] Annette Long MD chart Prep 12/22/2024 Travel from Last 3 Months Immunizations Immunization [...] 17 03/04/2025 11:44 AM EDT Oxygen Saturation 98% 02/03/2025 4:06 PM EDT Inhaled Oxygen Concentration - - Weight 103 kg (226 lb 9.6 oz) 03/04/2025 11:44 A M EDT Height 167.6 cm (5' 6 ) 02/03/2025 4:06 PM EDT Body Mass Index 36.57 02/03/2025 4:06 PM EDT Plan of Treatment Upcoming Encounters Date Type Department Care Team (Late st Contact Info) Description 03/19/2025 2:00 PM EDT Office Visit [facility] [address] [place], [place] [phone] Ira Hough, PRISCA [address] [place], [place] [phone] 04/01/2025 4:00 PM EDT Office Visit [facility] [address] [place], [place] [phone] Annette Long MD [address] [place], [place] [phone] Health Maintenance Due Date Last Done Comments HPV Vaccines (1 - 3-dose series) 2005 COVID-19 Vaccine (2024- season) 2025 03/15/2021, 02/22/2021 Influenza Vaccine (#1) 2025 03/31/2019, 2018 Disability Screening 06/23/2025 06/23/2024 Family Planning (PISQ) 10/10/2025 10/10/2024 Alcohol/Substance Use Screening 12/29/2025 12/29/2024 Depression Screening 12/29/2025 12/29/2024, 12/30/19 SDOH Screening 12/29/2025 12/29/2024 Tobacco Screening 03/04/2026 03/04/2025 Cervical Cancer Screening 12/30/2027 HPV/Cotest 12/30/2027 12/29/2024, 07/0 10/2021, 12/06/2021, Additional history exists Pap Smear [...] Additional history exists IPV Vaccines Completed 03/04/1995, 09/0 06/1991, 1990, [...] 39.9 in adult ([facility]) CORTISOL RANDOM Routine 12/29/2024 2:40 PM EDT Class 2 severe obesity due to excess calories with serious comorbidity and body mass index (BMI) of 39.0 to 39.9 in adult ([facility]) TSH W/REFLEX TO FT4 Routine 12/29/2024 2 :40 PM EDT Class 2 severe obesity due to excess calories with serious comorbidity and body mass index (BMI) of 39.0 to 39.9 in adult ([facility]) LIPID PANEL, STANDARD Routine 02/22/2024 2:54 PM EDT Obesity (BMI 30.0-34.9) ZZZ HISTORICAL HEPATITIS C ANTIBODY Routine 04/01/2022 10:23 AM EDT from Last 3 Months or Most Recently Relevant to Health Maintenance Results * (ABNORMAL) Bacterial Vaginosis Panel (02/03/2025 4:30 PM EDT) Only the most recent of2 resultswithin the time period is included. TRICHOMONAS VAGINALIS DETECTION BY PCR NOT DETECTED Not Detect [facility] BACTERIAL VAGINOSIS DETECTION BY PCR POSITIVE(A) Negative [facility] Comment:The BV organism targ ets [...] GROUP DETECTION BY PCR DETECTED(A) Not Detect [facility] Kathleen glab krusei PCR NOT DETECTED Not Detect [facility] Swab Vaginal structure / Unknown 02/03/2025 4:30 PM EDT 02/04/2025 1:07 PM EDT us Apurva Merino NP LAB MICROBIOLOGY - GENERAL ORDER JUAN Final Result [facility] [address] [place] [phone] [phone] * Chlamydia/N. Gonorrhoeae RNA, TMA, Vaginal (02/03/2025 4:30 PM EDT) Only the most recent of2 resultswithin the time period is included. CT PCR NOT DETECTED Not Detect. [facility] Comment:A not detected test result [...] psychologicalconsequences. NG PCR NOT DETECTED Not Detect. [facility] Comment:A not detected test result [...] ORDER JUAN Final Result Performing Organization Address [facility]/ZIP Co de Phone Number [facility] [address] [place] [phone] * HPV DNA, Low/High Risk (12/29/2024 2:44 PM EDT) HPV High Risk Negative Negative [facility] HPV Genotype 16 Negative Negative [facility] HPV Genotype 18 Negative Negative [facility] Comment:HPV testing performe d at [facility] (CLIA#[id number]), [address] [place] [address].Testing for HPV was performed using the Daniel [...] ORDERABLES Final Res ult Performing Organization Address [facility]/ZIP Co de Phone Number [facility] [address] [place] [phone] * Pap Smear (12/29/2024 2:44 PM EDT) 12/29/2024 2:44 PM EDT 12/31/2024 7:35 AM EDT [facility] - 01/08/2025 9:57 AM EDT ----- ------- Name: Megan Wesley Age/Sex: 34/F : 1990 Unit#: [id number] Attend Dr: Annette Long Re12/29/24 Status: [facility] REF Location: [facility] Disch: ----- ------- SPEC : [id number] RECD: 12/31/24 STATUS: GUCCI NEALYvrose NUM: [id number] ABIGAIL: 12/29/24-[address] [facility] [address]: Annette Long ENTERED: 12/31/24 SP TYPE: Pap Smr OTHR DR: ORDERED: Pap Smear Interpretation Satisfactory for [...] and HPV testing will be performed at [facility] (CLIA #[id number]), [address] [place], [place] [address]. Testing for HPV was performed using the [...] detected. All professional services are performed by [facility] ([address] [place], [place] [id number]; ; CLIA #[id number]). The PAP Test is a screening procedure with the inherent possibility of both false negative and false positive results. Results should be interpreted in the context of historic and current clinical findings. Reliability of the PAP Test is enhanced by performing the test on a regular repetitive basis. CONTINUED ON NEXT PAGE ----- ------- Name: Megan Wesley Age/Sex: 34/F : 1990 Unit#: [id number] Attend Dr: Annette Long Re12/29/24 Status: DEP REF Location: [facility] Disch: ----- ------- SPEC : [id number] RECD: 12/31/24 STATUS: GUCCI DHILLON NUM: [id number] ABIGAIL: 12/29/24-[address] [facility] [address]: Annette Long ENTERED: 12/31/24 SP TYPE: Pap Smr [facility] DR: ORDERED: Pap Smear ----- ------- Signed (signature on file) LEXA Mccabe (ASCP) 01/08/25 0957 ----- ------- END OF REPORT us Annette Long MD LAB CYTOLOGY ORDERABLES Final Result [facility] [address] [place] [phone] * Cortisol Random (12/29/2024 2:40 PM EDT) Cortisol Random 5.6 ug/dL [facility] Comment:Reference Range*: Be fore 10 am 6.2-19.4 ug/dL After 5 pm 2.3-11.9 ug/dL*Please interpret above results accordingly.This test was performed using the Medio[employer] chemiluminescentmethod. Values obtained from different assay methods cannotbe used interchangeably.Patients receiving fludrocortisone, prednisolone orprednisone may show artificially elevated cortisol valuesdue to cross-reactivity. 12/29/2024 2:40 PM EDT 12/29/2024 4:06 PM EDT Annette Long MD LAB BLOOD ORDERABLES Final Res ult Performing Organization Address City/[facility]/ZIP Co de Phone Number [facility] [address] [place] [phone] * TSH W/Reflex to FT4 (12/29/2024 2:40 PM EDT) TSH reflex Free T4 1.35 0.32 - 4.0 uIU/mL [facility] Blood Venous blood specimen / Unknown 12/29/2024 2:40 PM EDT 12/29/2024 4:06 PM EDT Annette Long MD LAB BLOOD ORDERABLES Final Res ult Performing Organization Address [facility] Co de Phone Number [facility] [address] [place] [phone] * HIV-1/2 Antigen and Antibodies, Fourth Generation, with Reflexes (12/29/2024 2:40 PM EDT) HIV AB/AG Nonreactive Nonreactive [facility] Comment:HIV-1 p24 Ag and/or HIV-1/HIV-2 Ab not detected.A test result that is nonreactive does not exclude thepossibility of exposure to or infection with HIV-1 and/orHIV-2. Nonreactive results in this assay for individualswith prior exposure to HIV-1 and/or HIV-2 may be due toantigen and antibody levels that are below the limit ofdetection of this assay.The [employer] HIV Ag/Ab Combo assay result andsupplemental assay results should be interpreted inconjunction with the patient's clinical presentation,history and other laboratory results. If the results areinconsistent with clinical evidence, additional testing issuggested to confirm the result. Blood Venous blood specimen / Unknown 12/29/2024 2:40 PM EDT 12/29/2024 4:06 PM EDT Annette Long MD LAB BLOOD ORDERABLES Final Res ult Performing Organization Address [facility]/ZIP Co de Phone Number [facility] [address] [place] [phone] * (ABNORMAL) Basic Metabolic Panel (12/29/2024 2:40 PM EDT) Sodium 141 135 - 145 mmol/L [facility] Potassium 4.2 3.3 - 5.1 mmol/L [facility] Chloride 109(H) 96 - 108 mmol/L [facility] Carbon Dioxide 25 22 - 29 mmol/L [facility] Anion Gap 11(L) 12 - 20 [facility] Urea Nitrogen (BUN) 15 9 - 16 mg/dL [facility] Creatinine, Serum 0.87 0.5 - 1.4 mg/dL [facility] Estimated Glomerular Filt Rate >60 [facility] Comment:Chronic Kidney Disea se: Estimated GFR < 60 mL/min/1.45e2Qsrclz Kidney Disease: Estimated GFR < 15 mL/min/1.73m2 Glucose 87 60 - 115 mg/dL [facility] Calcium 9.0 8.4 - 10.2 mg/dL [facility] Blood Venous blood specimen / Unknown 12/29/2024 2:40 PM EDT 12/29/2024 4:06 PM EDT Annette Long MD LAB BLOOD ORDERABLES Final Res ult Performing Organization Address [facility]/ZIP Co de Phone Number [facility] [address] [place] [phone] * (ABNORMAL) Lipid Panel, Standard (02/22/2024 2:54 PM EDT) Triglycerides 260(H) <150 mg/dL [facility] Comment:Desirable Triglyceri de: less than 150 mg/dLBorderline High Triglyceride 150-199 mg/dLHigh Triglyceride: 200-499 mg/dLVery High Triglyceride: greater than or equal to 5OO mg/dL Cholesterol 211(H) <200 mg/dL [facility] Comment:Desirable Cholestero l: less than 200 mg/dLBorderline High Cholesterol: 200-239 mg/dLHigh Cholesterol: greater than 239 mg/dL LDL Cholesterol Calculated 122(H) <100 mg/dL [facility] Comment:Desirable LDL: less than 100 mg/dLNear Optimal/Above Optimal LDL: 110- 129 mg/dLBorderline High LDL: 130-159 mg/dLHigh LDL: 160-189 mg/dLVery High LDL: greater than or equal to 190 mg/dL HDL Cholesterol 37(L) >40 mg/dL [facility] Comment:Desirable HDL: great er than 40 mg/dL Note: This HDL assay may give artificially low results in patients with liver disease. Blood Venous blood specimen / Unknown 02/22/2024 2:54 PM EDT 02/22/2024 4:21 PM EDT us Annette Long MD LAB BLOOD ORDERABLES Final Res ult [facility] [address] [place] [phone] * Hepatitis C Antibody (04/01/2022 10:23 AM EDT) Pathologist [facility] Hepatitis C Antibody Nonreactive Nonreactive CONVERTED LEGACY [...] of detection of this assay. The [employer] HIV Ag/Ab Combo assay result and supplemental [...] Most Recently Relevant to Health Maintenance Insurance [employer] Care Teams Food Service Worker Relationship Specialty Start Date End Date Annette Long MD [address] [place] [address] PCP - General Family Medicine 02/01/22
--- OUTSIDE RECORDS SUMMARY | 2025-03-04 17:05 | XMS_ITS | Encounter Summary ---
Author Organization [employer] Address [address] [facility] [place] [address] Care Team Providers Care Mine Safety Director Name Role Phone Annette Long MD Primary Care Provider [phone] Encounter Details Date Type Department Care Team (Late st Contact Info) Description 09/03/2024 Orders Only [facility] [address] [place], [place] [phone] Annette Long MD [address] [place], [place] [phone] Social History Tobacco Use Types Packs/Day Years [...] Description 03/19/2025 2:00 PM EDT Office Visit [facility] [address] [place] [phone] Ira Hough CNM [address] [place] [phone] 04/01/2025 4:00 PM EDT Office Visit [facility] [address] [place] [address] Annette Long MD [address] [place] [phone] documented as of this encounter Visit Diagnoses Not on filedocumented in this encounter Additional Health Concerns Assessment Noted Time PHQ-9 Depression Total Score: 3 08/26/19 25 3:18 PM EDT documented as of this encounter Care Teams Mine Safety Director Relationship Specialty Start Date End Date Annette Long MD [address] [place] [phone] PCP - General Family Medicine 02/01/22 documented as of this encounter
[2025-03-05 06:57] LABS: Bacterial Vaginosis PCR POSITIVE (Negative); Candida Group PCR NOT DETECTED (Not Detect); Candida glab krusei PCR NOT DETECTED (Not Detect); Trichomonas vaginalis PCR NOT DETECTED (Not Detect)
[2025-03-05 07:27] LABS: CT PCR NOT DETECTED (Not Detect.); NG PCR NOT DETECTED (Not Detect.)
== END 2025-03-04 17:03 | disposition home or self-care (01) ==
LOC: HO.HHCLNP 17:02
PROVIDERS: Visit Provider Family Medicine
DX: N89.8 Other specified noninflammatory disorders of vagina (principal); Z20.2 Contact with and (suspected) exposure to infections with a predominantly sexual mode of transmission
CPT/HCPCS: 81515; 87491; 87591

== ENCOUNTER 2025-03-19 18:29 | Outpatient (REF) | payer MEDICAID, SELFPAY ==
--- OUTSIDE RECORDS SUMMARY | 2025-03-19 14:00 | XMS_ITS | Encounter Summary ---
Author Organization [employer] Address [address] [facility] [place] [address] Care Team Providers Care Sailmaker Name Role Phone Annette Long MD Primary Care Provider [phone] Reason for Visit * Reason Comments CHW - Office Visit Encounter Details Date Type Department Care Team ([facility] st Contact Info) Description 03/19/2025 2:00 PM EDT Office Visit [facility] [address] [place] [address] Ira Hough CNM [address] [place] [address] Vaginal discharge (Primary Dx) Social History Tobacco [...] Date Recorded No desire to become (finding) 1 Sex and Gender Information Value Date Recorded Sex Assigned at Female 04/03/2022 10:29 AM EDT Legal Sex Female 10:29 AM EDT Gender Identity Female 04/03/2022 10:29 AM EDT Sexual Orientation Straight 04/03/2022 10 :29 AM EDT documented as of this encounter Last Filed Vital Signs Vital Sign Reading Time Taken Comments Blood Pressure 100/72 03/19/2025 2:03 PM EDT Pulse 80 03/19/2025 2:03 PM EDT Temperature 36.9 C (98.4 F) 03/19/2025 2:03 PM EDT Respiratory Rate 16 03/19/2025 2:03 PM EDT Oxygen Saturation 96% 03/19/2025 2:03 PM EDT Inhaled Oxygen Concentration - - Weight 100 kg (221 lb 3.2 oz) 03/19/2025 2:03 PM EDT Height - - Body Mass Index 35.7 02/03/2025 4:06 PM EDT documented in this encounter Progress Notes * Ira Hough CNM - 03/19/2025 2:00 PM EDT Subjective Patient ID: Megan Wesley is a 35 y.o. female who presents for recurrent BV Pap NIL/HPV neg 12/2024. Treated for bacterial vaginosis 03/05/2025, 02/2025, 12/2024, vulvovaginal candidiasis 02/2025. Last sexually active a week ago, no longer with previous partner. Declines STI testing today. Denies safety concerns. Frustrated by recurrent bacterial vaginosis, would like to discuss treatment options. Doesn't like oral metronidazole. Boric acid gave her a yeast infection. Female Problem The patient's pertinent negatives include no genital itching, genital lesions, genital odor, genital rash, missed menses, pelvic pain, vaginal bleeding or vaginal discharge. This is a recurrent problem. The current episode started more than 1 year ago. The patient is experiencing no pain. She is not . Pertinent negatives include no abdominal pain, anorexia, back pain, chills, constipation, diarrhea, discolored urine, dysuria, fever, flank pain, frequency, headaches, hematuria, joint pain, joint swelling, nausea, rash, sore throat, urgency or vomiting. The symptoms are aggravated by intercourse. She is sexually active. No, her partner does not have an STD. She uses tubal ligation for contraception. Her menstrual history has been irregular. Review of Systems Constitutional: Negative for chills and fever. HENT: Negative for sore throat. Gastrointestinal: Negative for abdominal pain, anorexia, constipation, diarrhea, nausea and vomiting. Genitourinary: Negative for dysuria, flank pain, frequency, hematuria, missed menses, pelvic pain, urgency and vaginal discharge. Musculoskeletal: Negative for back pain and joint pain. Skin: Negative for rash. Neurological: Negative for headaches. Objective BP 100/72 (BP Location: Left arm, Patient Position: Sitting, BP Cuff Size: Adult) Pulse 80 Temp98.4 ??F (36.9 ??C) (Oral) Resp 16 Wt 221 lb 3.2 oz (100 kg) LMP 02/23/2025 (Exact Date) SpO2 96% BMI 35.70 kg/m?? Physical Exam Constitutional: Appearance: Normal appearance. Neurological: Mental Status: She is alert. Psychiatric: Mood and Affect: Mood normal. Behavior: Behavior normal. Assessment/Plan Diagnoses and all orders for this visit: Vaginal discharge - POCT fern test, vaginal fluid manually resulted - Bacterial Vaginosis Panel Self collected swabs. Wet mount negative today. Will send bacterial vaginosis swab and treat positive results. For MetroGel x 5 nights then twice weekly x 12 weeks for prevention if bacterial vaginosis noted today. Avoid vaginal irritants. Answers submitted by the patient for this visit: Female Genital Questionnaire (Submitted on 03/12/2025) Chief Complaint: Female genitourinary complaint genital itching: No genital lesions: No genital odor: No genital rash: No missed menses: No pelvic pain: No vaginal bleeding: No vaginal discharge: No Chronicity: recurrent Onset: more than 1 year ago Pain severity: no pain now?: No abdominal pain: No anorexia: No back pain: No chills: No constipation: No diarrhea: No discolored urine: No dysuria: No fever: No flank pain: No frequency: No headaches: No hematuria: No joint pain: No joint swelling: No nausea: No rash: No sore throat: No urgency: No vomiting: No Aggravated by: intercourse Sexual activity: sexually active Partner with STD symptoms: no control: tubal ligation Menstrual history: irregular documented in this encounter Plan of Treatment Upcoming Encounters Date Type Department Care Team (Late st Contact Info) Description 04/01/2025 4:00 PM EDT Office Visit [facility] [address] [place] [address] Annette Long MD [address] [place] [address] Scheduled Orders Name Type Priority Associated Diagnoses Orde r Schedule Bacterial Vaginosis Panel Microbiology Routine Vaginal discharge Ordered: 03/19/2025 documented as of this encounter Procedures Procedure Name Priority Date/Time Associated Diagnosis Comments POCT WET MOUNT/BANDAR Routine 03/19/2025 2: 40 PM EDT Vaginal discharge documented in this encounter Results * POCT fern test, vaginal fluid manually resulted (03/19/2025 2:40 PM EDT) BANDAR Prep Negative Comment:pH 4.5, neg whiff, n eg clue, neg trich, neg yeast, neg wbc Vaginal Fluid Vaginal structure / Unknown 03/19/2025 2:40 PM EDT Ira Hough CNM POINT OF CARE TEST ENTER/ EDIT ORDERABLES Final Result documented in this encounter Visit Diagnoses Diagnosis Vaginal discharge- Primary Leukorrhea, not specified as infective documented in this encounter Additional Health Concerns Assessment Noted Time PHQ-9 Depression Total Score: 1 12/30/19 25 2:40 PM EDT documented as of this encounter Care Teams Sailmaker Relationship Specialty Start Date End Date Annette Long MD [address] [place] [phone] PCP - General Family Medicine 02/01/22 documented as of this encounter
--- OUTSIDE RECORDS SUMMARY | 2025-03-19 19:54 | XMS_ITS | Encounter Summary ---
Author Organization [employer] Address [address] [facility] [address] [place] [address] Care Team Providers Care Geophysical Prospecting Permit Agent Name Role Phone Annette Long MD Primary Care Provider [phone] Encounter Details Date Type Department Care Team (Late st Contact Info) Description 12/31/2024 Orders Only [facility] [address] [place], [place] [phone] Annette Long MD [address] [place], [place] [phone] Screening for cervical cancer (Primary Dx) Social [...] Description 04/01/2025 4:00 PM EDT Office Visit [facility] [address] [place] [phone] Annette Long MD [address] [place] [phone] Scheduled Orders Name Type Priority Associated Diagnoses [...] documented as of this encounter Care Teams Geophysical Prospecting Permit Agent Relationship Specialty Start Date End Date Annette Long MD [address] [place] [phone] PCP - General Family Medicine 02/01/22 documented as of this encounter
--- OUTSIDE RECORDS SUMMARY | 2025-03-19 19:54 | XMS_ITS | Clinical Summary ---
Author Organization [employer] Address [address] [facility] 7[address] [place] [address] Care Team Providers Care Container Shop Welder Name Role Phone Annette Long MD Primary Care Provider [phone] Allergies No known active allergies Medications * [...] together for one month. 30 capsule 12/30/19 25 026 Active Zepbound 12.5 MG/0.5ML solution auto-injector INJECT ONE PEN (=12.5MG) SUBCUTANEOUSLY ONCE A WEEK DIRECTED 2 mL 1 01/29/20 25 Active hydrocortisone 2.5 % cream Apply topically 2 times daily. 10 g 1 02/04/20 25 Active fluconazole (Diflucan) 150 MG tablet Take 1 tablet (150 mg) by mouth 1 (one) time per week for 14 days. 2 tablet 02/04/20 25 025 metroNIDAZOLE (Metrogel) 0.75 % vaginal gel Insert into the vagina at bedtime for 7 days. 70 g 03/04/20 25 025 Active Problems Problem Noted Date Diagnosed Date Vaginal itching 02/03/2025 Assessment & Plan (02/03/2025 4:41 PM EDT): Orders: Chlamydia/N. Gonorrhoeae RNA, TMA, Vaginal Bacterial Vaginosis Panel Vaginal yeast infection 02/03/2025 Assessment & Plan (02/03/2025 4:41 PM EDT): Orders: Chlamydia/N. Gonorrhoeae RNA, TMA, Vaginal Bacterial Vaginosis Panel Bacterial vaginosis 12/30/2024 Assessment & Plan (03/05/2025 10:15 PM EDT): Presumptive. Start metronidazole gel. Since it is recurrent, recommended to consider treating her partner. Pt will consider. Macromastia 10/10/2024 Overview (10/10/2024): I will contact [...] depression Continue counseling 3 times weekly with [place] Chronic hypertension 10/08/2023 Assessment & Plan (02/26/2024 [...] Encounters Date Type Department Care Team Description 03/19/2025 2:00 PM EDT Office Visit [facility] [address] [place] [address] [place] Hough CNM Vaginal discharge (Primary Dx) 03/19/2025 Travel 03/18/2025 Telephone [facility] [address] [place] [address] Annette Long MD chart prep 03/12/2025 Travel 03/05/2025 Results Follow-Up [facility] [address] [place] [address] Jennifer Oviedo MD Bacterial Vaginosis 03/04/2025 11:15 AM EDT Office Visit [address] [address] Jennifer Oviedo MD Vaginal discharge (Primary Dx); Bacterial vaginosis 03/04/2025 Orders Only [address] [address] Jennifer Oviedo MD 03/04/2025 Travel 03/04/[address] [address] Annette Long MD Nurse Triage 02/13/2025 Orders Only [address] [address] Annette Long MD Bacterial vaginosis (Primary Dx) 02/10/[address] [address] Roxana Victoria MA Pt requesting appt 02/03/2025 3:45 PM EDT Office Visit [address] [address] Apurva Merino NP Vaginal itching (Primary Dx); Vaginal yeast infection 02/03/2025 Travel 02/03/[address] [address] Annette Long MD Nurse Triage 01/27/[address] [address] Annette Long MD 01/27/[address] [address] Annette Long MD 12/31/2024 Orders Only [address] [address] Annette Long MD Screening for cervical cancer (Primary Dx) 12/30/2024 Results Follow-Up [address] [address] Annette Long MD TSH W/Reflex to FT4, Cortisol Random, Basic Metabolic Panel, Additional followed-up results: 3 12/30/[address] [address] Annette Long MD Lab Orders 12/29/2024 2:00 PM EDT Procedure Visit [address] [address] Annette Long MD Low grade squamous intraepithelial lesion (LGSIL) on cervical Pap smear (Primary Dx); Class 2 severe obesity due to excess calories with serious comorbidity and body mass index (BMI) of 39.0 to 39.9 in adult ([facility]); Bacterial vaginosis 12/29/2024 Orders Only [address] [address] Annette Long MD 12/29/2024 Travel 12/25/[address] [phone] Annette Long MD chart Prep 12/22/2024 Travel [...] 3.2 oz) 03/19/2025 2:03 PM EDT Height 167.6 cm (5' 6 ) 02/03/2025 4:06 PM EDT Body Mass Index 35.7 02/03/2025 4:06 PM EDT Plan of Treatment Upcoming Encounters Date Type Department Care Team (Late st Contact Info) Description 04/01/2025 4:00 PM EDT Office Visit [facility] [address] [place], [place] [phone] Annette Long MD [address] [place], [place] [phone] Health Maintenance Due Date Last Done Comments HPV Vaccines (1 - 3-dose series) 2005 COVID-19 Vaccine ( - season) 2025 03/15/2021, 02/22/2021 Influenza Vaccine (#1) 2025 03/31/2019, 2018 Alcohol/Substance Use Screening 12/29/2025 12/29/2024 Depression Screening 12/29/2025 12/29/2024, 12/30/19 SDOH Screening 12/29/2025 12/29/2024 Disability Screening 03/19/2026 03/19/2025 Family Planning (PISQ) 03/19/2026 03/19/2025 Tobacco Screening 03/19/2026 03/19/2025 Cervical Cancer Screening 12/30/2027 HPV/Cotest 12/30/2027 12/29/2024, [...] 03/19/2025 2: 40 PM EDT Vaginal discharge BACTERIAL VAGINOSIS PANEL Routine 03/04/2025 11:50 AM EDT CHLAMYDIA/N. GONORRHOEAE RNA, TMA, UROGENITAL Routine 03/04/2025 11:50 AM EDT Vaginal discharge BACTERIAL VAGINOSIS PANEL Routine 02/03/2025 4:30 PM [...] (BMI) of 39.0 to 39.9 in adult ([facility]) CORTISOL RANDOM Routine 12/29/2024 2:40 PM EDT Class 2 severe obesity due to excess calories with serious comorbidity and body mass index (BMI) of 39.0 to 39.9 in adult ([facility]) TSH W/REFLEX TO FT4 Routine 12/29/2024 2 :40 PM EDT Class 2 severe obesity due to excess calories with serious comorbidity and body mass index (BMI) of 39.0 to 39.9 in adult ([facility]) LIPID PANEL, STANDARD Routine 02/22/2024 2:54 PM EDT Obesity (BMI 30.0-34.9) ZZZ HISTORICAL HEPATITIS C ANTIBODY Routine 04/01/2022 10:23 AM EDT from Last 3 Months or Most Recently Relevant to Health Maintenance Results * POCT fern test, vaginal fluid manually resulted (03/19/2025 2:40 PM EDT) [facility] Prep Negative Comment:pH 4.5, neg whiff, n eg clue, neg trich, neg yeast, neg wbc Vaginal Fluid Vaginal structure / Unknown 03/19/2025 2:40 PM EDT [place] Hough CNM POINT OF CARE TEST ENTER/ EDIT ORDERABLES Final Result * (ABNORMAL) Bacterial Vaginosis (03/04/2025 11:50 AM EDT) Only the most recent of3 resultswithin the time period is included. TRICHOMONAS VAGINALIS DETECTION BY PCR NOT DETECTED Not Detect [facility] BACTERIAL VAGINOSIS DETECTION BY PCR POSITIVE(A) Negative [facility] Comment:The BV organism targ ets [...] of 14. KATHLEEN GROUP DETECTION BY PCR NOT DETECTED Not Detect [facility] Kathleen glab krusei PCR NOT DETECTED Not Detect [facility] 03/04/2025 11:5 0 AM EDT 03/04/2025 5:04 PM EDT Jennifer Oviedo MD LAB MICROBIOLOGY - GENERAL ORDER JUAN Final Result [facility] [address] [place] [phone] * Chlamydia/N. Gonorrhoeae RNA, TMA, Vagina (03/04/2025 11:50 AM EDT) Only the most recent of3 resultswithin the time period is included. CT PCR NOT DETECTED Not Detect. [facility] Comment:A not detected test result [...] psychologicalconsequences. NG PCR NOT DETECTED Not Detect. [facility] Comment:A not detected test result [...] to adverse medical, social or psychologicalconsequences. Swab Vaginal structure / Unknown 03/04/2025 11:50 AM EDT 03/04/2025 5:04 PM EDT us Jennifer Oviedo MD LAB MICROBIOLOGY - GENERAL ORDER JUAN Final Result [facility] [address] [place] [phone] * HPV DNA, Low/High Risk (12/29/2024 2:44 PM EDT) HPV High Risk Negative Negative [facility] HPV Genotype 16 Negative Negative [facility] HPV Genotype 18 Negative Negative [facility] Comment:HPV testing performe d at [facility] (CLIA#[id number]), [address] [place] [phone].Testing for HPV was performed using the Daniel [...] MD LAB BLOOD ORDERABLES Final Res ult [facility] [address] [place] [phone] * Pap Smear (12/29/2024 2:44 PM EDT) 12/29/2024 2:44 PM EDT 12/31/2024 7:35 AM EDT Narrative [facility] - 01/08/2025 9:57 AM EDT ----- ------- Name: LupilloMegan Age/Sex: 34/F : 1990 Unit#: [id number] Attend Dr: Annette Long Re12/29/24 Status: DEP REF Location: [facility] Disch: ----- ------- SPEC : [id number] RECD: 12/31/24 STATUS: GUCCI DHILLON NUM: [id number] ABIGAIL: 12/29/[address] [facility] DR: Annette Long ENTERED: 12/31/24 SP [...] and HPV testing will be performed at [facility] (CLIA #[id number]), [address] [place] [address]. Testing for HPV was performed using the [...] detected. All professional services are performed by [facility] ([address] [place] [address], [place] [address]; ; CLIA #[id number]). The PAP Test is a screening procedure with the inherent possibility of both false negative and false positive results. Results should be interpreted in the context of historic and current clinical findings. Reliability of the PAP Test is enhanced by performing the test on a regular repetitive basis. CONTINUED ON NEXT PAGE ----- ------- Name: Megan Wesley Age/Sex: 34/F : 1990 Unit#: [id number] Attend Dr: Annette Long Re12/29/24 Status: DEP REF Location: [facility] Disch: ----- ------- SPEC : [id number] RECD: 12/31/24 STATUS: GUCCI DHILLON NUM: [id number] ABIGAIL: 12/29/24-[address] [facility] DR: Annette Long ENTERED: 12/31/24 SP TYPE: Pap Hortensia CHAVEZ DR: ORDERED: Pap Smear ----- ------- Signed (signature on file) LEXA Mccabe ([facility]) 01/08/25 0957 ----- ------- END OF REPORT Result [facility] Annette Long MD LAB CYTOLOGY ORDERABLES Final Result Performing Organization Address [facility] de Phone Number [facility] [address] [place] [phone] * Cortisol Random (12/29/2024 2:40 PM EDT) Cortisol Random 5.6 ug/dL [facility] Comment:Reference Range*: Be fore 10 am 6.2-19.4 ug/dL After 5 pm 2.3-11.9 ug/dL*Please interpret above results accordingly.This test was performed using the Mapori chemiluminescentmethod. Values obtained from different assay methods cannotbe used interchangeably.Patients receiving fludrocortisone, prednisolone orprednisone may show artificially elevated cortisol valuesdue to cross-reactivity. 12/29/2024 2:40 PM EDT 12/29/2024 4:06 PM EDT Annette Long MD LAB BLOOD ORDERABLES Final Res ult Performing Organization Address [facility] de Phone Number [facility] [address] [place] [phone] * TSH W/Reflex to FT4 (12/29/2024 2:40 PM EDT) TSH reflex Free T4 1.35 0.32 - 4.0 uIU/mL [facility] Blood Venous blood specimen / Unknown 12/29/2024 2:40 PM EDT 12/29/2024 4:06 PM EDT Annette Long MD LAB BLOOD ORDERABLES Final Res ult Performing Organization Address [facility]/ZIP Co de Phone Number [facility] [address] [place] [phone] * HIV-1/2 Antigen and Antibodies, Fourth Generation, with Reflexes (12/29/2024 2:40 PM EDT) HIV AB/AG Nonreactive Nonreactive [facility] Comment:HIV-1 p24 Ag and/or HIV-1/HIV-2 Ab not detected.A test result that is nonreactive does not exclude thepossibility of exposure to or infection with HIV-1 and/orHIV-2. Nonreactive results in this assay for individualswith prior exposure to HIV-1 and/or HIV-2 may be due toantigen and antibody levels that are below the limit ofdetection of this assay.The [employer] HIV Ag/Ab Combo assay result andsupplemental assay results should be interpreted inconjunction with the patient's clinical presentation,history and other laboratory results. If the results areinconsistent with clinical evidence, additional testing issuggested to confirm the result. Blood Venous blood specimen / Unknown 12/29/2024 2:40 PM EDT 12/29/2024 4:06 PM EDT us Annette Long MD LAB BLOOD ORDERABLES Final Res ult [facility] [address] [place] [phone] * (ABNORMAL) Basic Metabolic Panel (12/29/2024 2:40 PM EDT) Sodium 141 135 - 145 mmol/L [facility] Potassium 4.2 3.3 - 5.1 mmol/L [facility] Chloride 109(H) 96 - 108 mmol/L [facility] Carbon Dioxide 25 22 - 29 mmol/L [facility] Anion Gap 11(L) 12 - 20 [facility] Urea Nitrogen (BUN) 15 9 - 16 mg/dL [facility] Creatinine, Serum 0.87 0.5 - 1.4 mg/dL [facility] Estimated Glomerular Filt Rate >60 [facility] Comment:Chronic Kidney Disea se: Estimated GFR < 60 mL/min/1.47l4Lbyrvq Kidney Disease: Estimated GFR < 15 mL/min/1.73m2 Glucose 87 60 - 115 mg/dL [facility] Calcium 9.0 8.4 - 10.2 mg/dL [facility] Blood Venous blood specimen / Unknown 12/29/2024 2:40 PM EDT 12/29/2024 4:06 PM EDT us Annette Long MD LAB BLOOD ORDERABLES Final Res ult [facility] [address] [place] [phone] * (ABNORMAL) Lipid Panel, Standard (02/22/2024 2:54 PM EDT) Triglycerides 260(H) <150 mg/dL [facility] Comment:Desirable Triglyceri de: less than 150 mg/dLBorderline High Triglyceride 150-199 mg/dLHigh Triglyceride: 200-499 mg/dLVery High Triglyceride: greater than or equal to 5OO mg/dL Cholesterol 211(H) <200 mg/dL [facility] Comment:Desirable Cholestero l: less than 200 mg/dLBorderline High Cholesterol: 200-239 mg/dLHigh Cholesterol: greater than 239 mg/dL LDL Cholesterol Calculated 122(H) <100 mg/dL [facility] Comment:Desirable LDL: less than 100 mg/dLNear Optimal/Above Optimal LDL: 110- 129 mg/dLBorderline High LDL: 130-159 mg/dLHigh LDL: 160-189 mg/dLVery High LDL: greater than or equal to 190 mg/dL HDL Cholesterol 37(L) >40 mg/dL [facility] Comment:Desirable HDL: great er than 40 mg/dL Note: This HDL assay may give artificially low results in patients with liver disease. Blood Venous blood specimen / Unknown 02/22/2024 2:54 PM EDT 02/22/2024 4:21 PM EDT us Annette Long MD LAB BLOOD ORDERABLES Final Res ult Performing Organization Address City/[facility]/ZIP Co de Phone Number [facility] [address] [place] [phone] * Hepatitis C Antibody (04/01/2022 10:23 [...] of detection of this assay. The [employer] HIV Ag/Ab Combo assay result and supplemental assay results should be interpreted in conjunction with the patient's clinical presentation, history and other laboratory results. If the results are inconsistent with clinical evidence, additional testing is suggested to confirm the result. Hepatitis B Surface Antigen Negative Negative [facility] 04/01/2022 10:2 3 AM EDT us Krystian Carty MD HISTORICAL/NON ORDERABLE LABS Fi nal Result Performing Organization Address City/[facility]/ZIP Co de Phone Number [facility] from Last 3 Months or Most Recently Relevant to Health Maintenance Insurance [employer] C3 Care Teams Container Shop Welder Relationship Specialty Start Date End Date Annette Long MD [address] [place] [phone] PCP - General Family Medicine 02/01/22
--- OUTSIDE RECORDS SUMMARY | 2025-03-19 19:54 | XMS_ITS | Clinical Summary ---
Author Organization [facility] Address [address] [place] [phone] Phone Care Team Providers Care Washtub Worker Name Role Phone Unavailable Primary Care Provider [...]
--- OUTSIDE RECORDS SUMMARY | 2025-03-19 19:54 | XMS_ITS | Encounter Summary ---
Author Organization [facility] Address [address] [place] [phone] Phone Care Team Providers Care Business Reporting Developer Name Role Phone Unavailable Primary Care Provider Unavailabl e Encounter Details Date Type Department Care Team (Late st Contact Info) Description 05/16/2011 Documentation [facility] [address] [place] [address] Family Medicine, Physician [address] [place] [address] Social History Tobacco Use Types [...]
--- OUTSIDE RECORDS SUMMARY | 2025-03-19 19:54 | XMS_ITS | Encounter Summary ---
Author Organization [employer] [facility] Address [address] [facility] 7t [place] [address] Care Team Providers Care Seaport Planning Manager Name Role Phone Annette Long MD Primary Care Provider [phone] Encounter Details Date Type Department Care Team (Late st Contact Info) Description 02/28/2023 Orders Only [facility] MED[facility]INE [address] [place] [address] [phone] Provider, MD Lidia Social History Tobacco Use [...] Description 04/01/2025 4:00 PM EDT Office Visit [address] [phone] Annette Long MD [address] [place] [phone] documented as of this encounter Procedures Procedure Name Priority Date/Time Associated Diagnosis Comments HM PAP/HPV Routine 12/06/2021 documented in this encounter Results * Hm Pap Smear (12/06/2021) Historical Provider HEALTH MAINTENANCE Final Result documented in this encounter Visit Diagnoses Not on filedocumented in this encounter Care Teams Seaport Planning Manager Relationship Specialty Start Date End Date Annette Long MD [address] [place] [phone] PCP - General Family Medicine 02/01/22 documented as of this encounter
--- OUTSIDE RECORDS SUMMARY | 2025-03-19 19:54 | XMS_ITS | Encounter Summary ---
Author Organization [employer] Address [address] [place] [address] Care Team Providers Care Prorate Clerk Name Role Phone Annette Long MD Primary Care Provider [phone] Reason for Visit * Reason Onset Date Comments Medication Question 03/19/2024 Encounter Details Date Type Department Care Team ([facility] Contact Info) Description 03/19/2024 Telephone [facility] [address] [place], [place] [phone] Annette Long MD [address] [place], [place] [phone] Medication Question Social History Tobacco Use Types [...] 03/19/2024 3:43 PM EDT TC placed to [facility], they have Wegovy 0.25mg in stock. They will contact [facility] for a transfer and call pt. [...] its on back order at the [facility] and no other [facility] has it in stock at the moment. Pharmacy advised pt call to request a possible alternative. Please contact pt at [phone]. documented in this encounter Plan of Treatment Upcoming Encounters Date Type Department Care Team (Late st Contact Info) Description 04/01/2025 4:00 PM EDT Office Visit [facility] [address] [place] [address] Annette Long MD [address] [place] [address] documented as of this encounter Visit Diagnoses Not on filedocumented in this encounter Additional Health Concerns Assessment Noted Time PHQ-9 Depression Total Score: 12 024 1:42 PM EDT documented as of this encounter Care Teams Prorate Clerk Relationship Specialty Start Date End Date Annette Long MD [address] [place] [address] PCP - General Family Medicine 02/01/22 documented as of this encounter
--- OUTSIDE RECORDS SUMMARY | 2025-03-19 19:54 | XMS_ITS | Encounter Summary ---
Author Organization [employer] [facility] Address [address] [facility] 7t [place] [address] Care Team Providers Care Instructional Consultant Name Role Phone Annette Long MD Primary Care Provider [phone] Encounter Details Date Type Department Care Team (Late st Contact Info) Description 02/28/2023 Orders Only [facility] [address] [place] [phone] Oxana Echavarria Social History Tobacco Use Types [...] Description 04/01/2025 4:00 PM EDT Office Visit [facility] [address] [place] [address] Annette Long MD [address] [place] [address] documented as of this encounter Procedures Procedure [...] on filedocumented in this encounter Care Teams Instructional Consultant Relationship Specialty Start Date End Date Annette Long MD [address] [place] [address] PCP - General Family Medicine 02/01/22 documented as of this encounter
--- OUTSIDE RECORDS SUMMARY | 2025-03-19 19:54 | XMS_ITS | Encounter Summary ---
Author Organization [employer] Address [address] 7[address] [place] [address] Care Team Providers Care Healthcare Translator Name Role Phone Annette Long MD Primary Care Provider [phone] Encounter Details Date Type Department Care Team (Late st Contact Info) Description 09/03/2024 Orders Only [facility] MEDICINE [address], [place] [phone] Annette Long MD [address] [place], [place] [phone] Social History Tobacco Use Types Packs/Day Years [...] your housing situation today? I have risarigo palafxo 02/22/[address] you li [...] 4:00 PM EDT Office Visit [facility] MEDICINE [address] [place] [phone] Annette Long MD [address] [place] [address] documented as of this encounter Visit Diagnoses Not on filedocumented in this encounter Additional Health Concerns Assessment Noted Time PHQ-9 Depression Total Score: 3 08/26/19 25 3:18 PM EDT documented as of this encounter Care Teams Healthcare Translator Relationship Specialty Start Date End Date Annette Long MD [address] [place] [phone] PCP - General Family Medicine 02/01/22 documented as of this encounter
--- OUTSIDE RECORDS SUMMARY | 2025-03-19 19:54 | XMS_ITS | Encounter Summary ---
Author Organization [email or web address] Address [address] [facility] [address]t [place] [address] Care Team Providers Care Corporate Bond Trader Name Role Phone Annette Long MD Primary Care Provider [phone] Reason for Visit * Reason Onset Date Comments Appointment Request 10/10/2023 Encounter Details Date Type Department Care Team (Late st Contact Info) Description 10/10/2023 Telephone [facility] [address] [place], [place] [phone] Annette Long MD [address] [place] [address] [phone] Appointment Request Social History Tobacco Use Types [...] 4:00 PM EDT Office Visit [facility] [address] [place], [place] [phone] Annette Long MD [address] [place] [phone] documented as of this encounter Visit Diagnoses Not on filedocumented in this encounter Care Teams Corporate Bond Trader Relationship Specialty Start Date End Date Annette Long MD [address] [place] [address] PCP - General Family Medicine 02/01/22 documented as of this encounter
--- OUTSIDE RECORDS SUMMARY | 2025-03-19 19:54 | XMS_ITS | Encounter Summary ---
Author Organization [employer] Address [address] [facility] 7t [place] [address] Care Team Providers Care Loft Worker Apprentice Name Role Phone Annette Long MD Primary Care Provider [phone] Reason for Referral * Consultation (Routine) - Closed Specialty Diagnoses / Procedures Referred By Reginald maynard Referred To Contact Nutrition Diagnoses Class 3 severe obesity due to excess calories with serious comorbidity and body mass index (BMI) of 45.0 to 49.9 in adult ([facility]) Annette Long MD [address] [place] [address] Phone: tel: fax: Referral ID Status Reason Start Date Expiration Date V isits Requested Visits Authorized [id number] Closed Consult and Treat 03/21/2024 03/21/2025 1 1 Encounter Details Date Type Department Care Team (Late st Contact Info) Description 03/21/2024 Orders Only [facility] MEDICINE [address] [place], [place] [phone] Annette Long MD [address] [place], [place] [phone] Class 3 severe obesity due to excess calories with serious comorbidity and body mass index (BMI) of 45.0 to 49.9 in adult ([facility]) (Primary Dx) Social History Tobacco Use Types [...] Description 04/01/2025 4:00 PM EDT Office Visit [facility] MEDICINE [address] [place] [address] Annette Long MD [address] [place] [address] Scheduled Referrals Name Type Priority Associated Diagnoses [...] (BMI) of 45.0 to 49.9 in adult (HCC)- Primary documented in this encounter Additional Health Concerns Assessment Noted Time PHQ-9 Depression Total Score: 12 024 1:42 PM EDT documented as of this encounter Care Teams Loft Worker Apprentice Relationship Specialty Start Date End Date Annette Long MD [address] [place] [address] PCP - General Family Medicine 02/01/22 documented as of this encounter
--- OUTSIDE RECORDS SUMMARY | 2025-03-19 19:54 | XMS_ITS | Encounter Summary ---
Author Organization [employer] Address [address] [facility] [address] 7t [place] [address] Care Team Providers Care Field Auto Appraiser Name Role Phone Annette Long MD Primary Care Provider [phone] Reason for Visit * Reason Onset Date Comments Med Refill 01/27/2025 Encounter Details Date Type Department Care Team ([facility] st Contact Info) Description 01/27/2025 Refill [facility] MED[facility] [address] [place], [place] [phone] Annette Long MD [address] [place] [address] Social History Tobacco Use Types Packs/Day Years [...] Description 04/01/2025 4:00 PM EDT Office Visit [facility] [address] [place] [address] Annette Long MD [address] [place] [address] documented as of this encounter Visit Diagnoses Not on filedocumented in this encounter Additional Health Concerns Assessment Noted Time PHQ-9 Depression Total Score: 1 12/30/19 25 2:40 PM EDT documented as of this encounter Care Teams Field Auto Appraiser Relationship Specialty Start Date End Date Annette Long MD [address] [place] [address] PCP - General Family Medicine 02/01/22 documented as of this encounter
--- OUTSIDE RECORDS SUMMARY | 2025-03-19 19:54 | XMS_ITS | Encounter Summary ---
Author Organization [employer] Address [address] [facility] [address] 7t [place] [address] Care Team Providers Care Front Desk Clerk Name Role Phone Annette Long MD Primary Care Provider Encounter Details Date Type Department Care Team (Latest Contact Info) Description 03/19/2025 Travel Social History Tobacco Use Types Packs/Day [...] Description 04/01/2025 4:00 PM EDT Office Visit [facility] MEDICINE 230 [place] [address] Annette Long MD 230 [place] [address] documented as of this encounter Visit Diagnoses Not on filedocumented in this encounter Additional Health Concerns Assessment Noted Time PHQ-9 Depression Total Score: 1 12/30/19 25 2:40 PM EDT documented as of this encounter Care Teams Front Desk Clerk Relationship Specialty Start Date End Date Annette Long MD [address] [place] [address] PCP - General Family Medicine 02/01/22 documented as of this encounter
--- OUTSIDE RECORDS SUMMARY | 2025-03-19 19:54 | XMS_ITS | Encounter Summary ---
Author Organization [employer] Address [address] [facility] [address] 7t [place] [address] Care Team Providers Care Neighborhood Worker Name Role Phone Annette Long MD Primary Care Provider [phone] Encounter Details Date Type Department Care Team (Late st Contact Info) Description 06/13/2024 Orders Only [facility] MEDICINE 230 [place], [place] [phone] Annette Long MD [address] [place], [place] [phone] Social History Tobacco Use Types Packs/Day Years [...] Description 04/01/2025 4:00 PM EDT Office Visit [facility] MEDICINE [address] [place] [address] Annette Long MD [address] [place] [address] documented as of this encounter Visit Diagnoses Not on filedocumented in this encounter Additional Health Concerns Assessment Noted Time PHQ-9 Depression Total Score: 12 024 1:42 PM EDT documented as of this encounter Care Teams Neighborhood Worker Relationship Specialty Start Date End Date Annette Long MD [address] [place] [address] [phone] PCP - General Family Medicine 02/01/22 documented as of this encounter
--- OUTSIDE RECORDS SUMMARY | 2025-03-19 19:54 | XMS_ITS | Encounter Summary ---
Author Organization [id number] Address [address] [facility] [address] 7t [place] [address] Care Team Providers Care Refuse Driver Name Role Phone Annette Long MD Primary Care Provider [phone] Reason for Visit * Reason Onset Date Comments chart prep 03/18/2025 Encounter Details Date Type Department Care Team ([facility] Contact Info) Description 03/18/2025 Telephone [facility] MEDICINE 230 [place], [place] [phone] Annette Long MD [address] [place], [place] [phone] chart prep Social History Tobacco Use Types Packs/Day Years [...] encounter Miscellaneous Notes * Telephone Encounter - Chary Jolly [place] - 03/18/2025 3:21 PM EDT Chart Prep Labs: not applicable Images: not applicable Screenings: Not Applicable Vaccines due: Covid Due, Flu Due, and HPV Referrals: Not Applicable Overdue care gaps: Disability documented in this encounter Plan of Treatment Upcoming Encounters Date Type Department Care Team (Late st Contact Info) Description 04/01/2025 4:00 PM EDT Office Visit [facility] MEDICINE 230 [place] [address] Annette Long MD [address] [place] [address] documented as of this encounter Visit Diagnoses Not on filedocumented in this encounter Additional Health Concerns Assessment Noted Time PHQ-9 Depression Total Score: 1 12/30/19 25 2:40 PM EDT documented as of this encounter Care Teams Refuse Driver Relationship Specialty Start Date End Date Annette Long MD [address] [place] [address] PCP - General Family Medicine 02/01/22 documented as of this encounter
--- OUTSIDE RECORDS SUMMARY | 2025-03-19 19:54 | XMS_ITS | Encounter Summary ---
Author Organization [email or web address] Address [address] [facility] [address] 7t [place] [address] Care Team Providers Care Pcts Name Role Phone Annette Long MD Primary Care Provider [phone] Reason for Visit * Reason Onset Date Comments Med Refill 05/15/2024 Encounter Details Date Type Department Care Team ([facility] st Contact Info) Description 05/15/2024 Refill [facility] MEDICINE 230 [place], [place] [phone] Annette Long MD [address] [place] [address] Class 3 severe obesity due to excess [...] Description 04/01/2025 4:00 PM EDT Office Visit [facility] MEDICINE 230 [place] [address] Annette Long MD [address] [place] [address] documented as of this encounter Visit Diagnoses Diagnosis Class 3 severe obesity due to excess calories with serious comorbidity and body mass index (BMI) of 45.0 to 49.9 in adult (HCC) documented in this encounter Additional Health Concerns Assessment Noted Time PHQ-9 Depression Total Score: 12 024 1:42 PM EDT documented as of this encounter Care Teams Pcts Relationship Specialty Start Date End Date Annette Long MD [address] [place] [address] PCP - General Family Medicine 02/01/22 documented as of this encounter
--- OUTSIDE RECORDS SUMMARY | 2025-03-19 19:54 | XMS_ITS | Encounter Summary ---
Author Organization [employer] Address 75 [facility] 7t [place] [address] Care Team Providers Care Ambulatory Care Coordinator Name Role Phone Annette Long MD Primary Care Provider [phone] Reason for Referral * Consultation (Routine) - Authorized Specialty Diagnoses / Procedures Referred By Reginald maynard Referred To Contact Midwifery Diagnoses Bacterial vaginosis Annette Long MD [address] [place] [address] Phone: tel: fax: Ira Hough CNM 230 [place] [address] Phone: tel: fax: Referral ID Status Reason Start Date Expiration Date Visits Requested Visits Authorized [id number] Authorized Consult and Treat 02/13/2025 02/13/2026 1 1 Encounter Details Date Type Department Care Team ([facility] st Contact Info) Description 02/13/[address] [facility] MEDICINE [address] [place] [address] [phone] Annette Long MD [address] [place] [address] [phone] Bacterial vaginosis (Primary Dx) Social History Tobacco [...] PM EDT Office Visit [facility] MEDICINE 230 [place] [address] Annette Long MD [address] [place] [address] Scheduled Referrals Name Type Priority Associated Diagnoses [...] documented as of this encounter Care Teams Ambulatory Care Coordinator Relationship Specialty Start Date End Date Annette Long MD [address] [place] [address] PCP - General Family Medicine 02/01/22 documented as of this encounter
--- OUTSIDE RECORDS SUMMARY | 2025-03-19 19:54 | XMS_ITS | Encounter Summary ---
Author Organization [employer] Address [address] [facility] [address] 7t [place] [address] Care Team Providers Care Wood Room Supervisor Name Role Phone Annette Long MD Primary Care Provider Reason for Visit * Reason Comments Med Refill Encounter Details Date Type Department Care Team ([facility] st Contact Info) Description 09/01/2024 Refill [facility] MEDICINE 230 [place], [place] [phone] Annette Long MD [address] [place], [place] [phone] Social History Tobacco Use Types Packs/Day Years [...] 04/01/2025 4:00 PM EDT Office Visit [facility] MEDICINE 230 [place] [address] Annette Long MD [address] [place] [address] documented as of this encounter Visit Diagnoses Not on filedocumented in this encounter Additional Health Concerns Assessment Noted Time PHQ-9 Depression Total Score: 3 08/26/19 25 3:18 PM EDT documented as of this encounter Care Teams Wood Room Supervisor Relationship Specialty Start Date End Date Annette Long MD [address] [place] [address] PCP - General Family Medicine 02/01/22 documented as of this encounter
[2025-03-20 04:35] LABS: Bacterial Vaginosis PCR NEGATIVE (Negative); Candida Group PCR NOT DETECTED (Not Detect); Candida glab krusei PCR NOT DETECTED (Not Detect); Trichomonas vaginalis PCR NOT DETECTED (Not Detect)
== END 2025-03-19 18:30 | disposition home or self-care (01) ==
LOC: HO.HHCLNP 18:29
PROVIDERS: Visit Provider Advanced Practice Midwife
DX: N89.8 Other specified noninflammatory disorders of vagina (principal); Z20.2 Contact with and (suspected) exposure to infections with a predominantly sexual mode of transmission
CPT/HCPCS: 81515

== ENCOUNTER 2025-06-03 08:18 | Outpatient (REF) | payer MEDICAID, SELFPAY ==
--- NOTE | ~2025-06-03 | MM_ITS ---
EXAMINATION: MM SCREENING DIGITAL BREAST TOMOSYNTHESIS, BILATERAL CLINICAL INFORMATION: Screening. Asymptomatic. Family history of breast cancer including sister. COMPARISON: Mammography: Baseline. TECHNIQUE: Digital breast mammography with tomosynthesis is performed in both the craniocaudal and mediolateral oblique views along with computer-aided detection (CAD). FINDINGS: There are scattered areas of fibroglandular density. Right: Asymmetry lower breast anterior depth on MLO view. No suspicious calcifications or other abnormal findings. Left: There are no significant masses, abnormal calcifications, or other abnormalities. MM/MM tomosynthesis screening BI IMPRESSION: Additional imaging is recommended ASSESSMENT: BI-RADS Category 0: Incomplete - Need additional Imaging Evaluation RECOMMENDATION: 1. Additional views of the right breast. 2. Targeted ultrasound if warranted after review of the additional views. 3. Radiology department staff will contact the patient for additional imaging. Additional Imaging required . Electronically signed by: Jennifer Black DO 06/03/2025 10:15 AM [facility]
--- OUTSIDE RECORDS SUMMARY | 2025-06-03 08:22 | XMS_ITS | Encounter Summary ---
Author Organization [employer] Address [address] [facility] [address] 7t [place] [address] Care Team Providers Care Foreign Banknote Teller Trader Name Role Phone Annette Long MD Primary Care Provider [phone] Reason for Visit * Reason Onset Date Comments Med Refill 05/15/2024 Encounter Details Date Type Department Care Team ([facility] st Contact Info) Description 05/15/2024 Refill [facility] MEDICINE 230 [place], [place] [phone] Annette Long MD 230 [place] [address] Class 3 severe obesity due to excess [...] Care Team (Late st Contact Info) Description 07/03/2025 9:45 AM EST Office Visit [facility] MEDICINE [address] [place] [address] Annette Long MD [address] [place] [address] documented as of this encounter Visit Diagnoses Diagnosis Class 3 severe obesity due to excess calories with serious comorbidity and body mass index (BMI) of 45.0 to 49.9 in adult (HCC) documented in this encounter Additional Health Concerns Assessment Noted Time PHQ-9 Depression Total Score: 12 024 1:42 PM EDT documented as of this encounter Care Teams Foreign Banknote Teller Trader Relationship Specialty Start Date End Date Annette Long MD [address] [place] [address] PCP - General Family Medicine 02/01/22 documented as of this encounter
--- OUTSIDE RECORDS SUMMARY | 2025-06-03 08:22 | XMS_ITS | Encounter Summary ---
Author Organization [employer] Address [address] [facility] [address] 7t [place] [address] Care Team Providers Care Financial Administration Officer Name Role Phone Annette Long MD Primary Care Provider [phone] Reason for Visit * Reason Onset Date Comments Med Refill 03/23/2025 Encounter Details Date Type Department Care Team ([facility] st Contact Info) Description 03/23/2025 Refill [facility] MEDICINE 230 [place] [address] Apurva Merino NP 230 [place] [address] Social History Tobacco Use Types Packs/Day Years [...] Description 07/03/2025 9:45 AM EST Office Visit [facility] MEDICINE [address] [place] [address] Annette Long MD 230 [place] [address] documented as of this encounter Visit Diagnoses Not on filedocumented in this encounter Additional Health Concerns Assessment Noted Time PHQ-9 Depression Total Score: 1 12/30/19 25 2:40 PM EDT documented as of this encounter Care Teams Financial Administration Officer Relationship Specialty Start Date End Date Annette Long MD [address] [place] [address] PCP - General Family Medicine 02/01/22 documented as of this encounter
--- OUTSIDE RECORDS SUMMARY | 2025-06-03 08:23 | XMS_ITS | Encounter Summary ---
Author Organization [employer] Address [address] [facility] [address] 7t [place] [address] Care Team Providers Care Buoy Tender Name Role Phone Annette Long MD Primary Care Provider Reason for Visit * Reason Onset Date Comments Med Refill 03/23/2025 Encounter Details Date Type Department Care Team ([facility] st Contact Info) Description 03/23/2025 Refill [facility] MEDICINE 230 [place] [address] Annette Long MD 230 [place] [address] Social History Tobacco Use Types Packs/Day Years [...] Description 07/03/2025 9:45 AM EST Office Visit [facility] MEDICINE [address] [place] [address] Annette Long MD 230 [place] [address] documented as of this encounter Visit Diagnoses Not on filedocumented in this encounter Additional Health Concerns Assessment Noted Time PHQ-9 Depression Total Score: 1 12/30/19 25 2:40 PM EDT documented as of this encounter Care Teams Buoy Tender Relationship Specialty Start Date End Date Annette Long MD [address] [place] [address] PCP - General Family Medicine 02/01/22 documented as of this encounter
--- OUTSIDE RECORDS SUMMARY | 2025-06-03 08:23 | XMS_ITS | Encounter Summary ---
Author Organization [employer] Address [address] [facility] [address] 7t [place] [address] Care Team Providers Care Behavioral Health Rn Name Role Phone Annette Long MD Primary Care Provider [phone] Encounter Details Date Type Department Care Team (Late st Contact Info) Description 03/21/2024 Orders Only [facility] MEDICINE [address] [place], [place] [phone] Annette Long MD [address] [place], [place] [phone] Class 3 severe obesity due to excess [...] Description 07/03/2025 9:45 AM EST Office Visit [facility] MEDICINE [address] [place] [address] Annette Long MD [address] [place] [address] documented as of this encounter Visit Diagnoses Diagnosis Class 3 severe obesity due to excess calories with serious comorbidity and body mass index (BMI) of 45.0 to 49.9 in adult (HCC)- Primary documented in this encounter Additional Health Concerns Assessment Noted Time PHQ-9 Depression Total Score: 12 024 1:42 PM EDT documented as of this encounter Care Teams Behavioral Health Rn Relationship Specialty Start Date End Date Annette Long MD [address] [place] [address] PCP - General Family Medicine 02/01/22 documented as of this encounter
--- OUTSIDE RECORDS SUMMARY | 2025-06-03 08:23 | XMS_ITS | Clinical Summary ---
Author Organization [facility] Address [address] [place] [phone] Phone Care Team Providers Care Broomcorn Sorter Name Role Phone Unavailable Primary Care Provider [...]
--- OUTSIDE RECORDS SUMMARY | 2025-06-03 08:23 | XMS_ITS | Encounter Summary ---
Author Organization [employer] Address [address] [facility] [address] 7t [place] [address] Care Team Providers Care Card Maker Name Role Phone Annette Long MD Primary Care Provider [phone] Reason for Visit * Reason Comments Med Refill Encounter Details Date Type Department Care Team ([facility] st Contact Info) Description 09/01/2024 Refill [facility] MEDICINE 230 [place], [place] [phone] Annette Long MD 230 [place], [place] [phone] Social History Tobacco Use Types Packs/Day Years [...] Description 07/03/2025 9:45 AM EST Office Visit [facility] MEDICINE [address] [place] [address] Annette Long MD [address] [place] [address] documented as of this encounter Visit Diagnoses Not on filedocumented in this encounter Additional Health Concerns Assessment Noted Time PHQ-9 Depression Total Score: 3 08/26/19 25 3:18 PM EDT documented as of this encounter Care Teams Card Maker Relationship Specialty Start Date End Date Annette Long MD [address] [place] [address] PCP - General Family Medicine 02/01/22 documented as of this encounter
--- OUTSIDE RECORDS SUMMARY | 2025-06-03 08:23 | XMS_ITS | Encounter Summary ---
Author Organization [employer] Address [address] [facility] [address] 7t [place] [address] Care Team Providers Care Sports Coordinator Name Role Phone Annette Long MD Primary Care Provider [phone] Reason for Visit * Reason Onset Date Comments Call Back Request 05/25/2025 Encounter Details Date Type Department Care Team ([facility] Contact Info) Description 05/25/2025 Telephone [facility] MEDICINE [address] [place], [place] [phone] Annette Long MD 230 [place], [place] [phone] Call Back Request Social History Tobacco Use Types Packs/Day [...] Answer Date Recorded Patient Health Questionnaire-9 Score 18 05/14/2025 Patient Health Questionnaire-9 Score 18 05/14/2025 Last PHQ-9: Questionnaire Data Not on file 1 07/15/2024 Housing Stability Answer Date Recorded What is [...] Date Recorded Patient Health Questionnaire-2 Score 6 05/14/2025 Internet Access Answer Date Recorded Internet Access [...] encounter Miscellaneous Notes * Telephone Encounter - Chapito Taylor - 05/25/2025 4:46 PM EST Tc from pt requesting a callback decline to talk to a nurse would only like to talk to the PCP Contact pt at [phone] documented in this encounter Plan of Treatment Upcoming Encounters Date Type Department Care Team (Late st Contact Info) Description 07/03/2025 9:45 AM EST Office Visit [facility] MEDICINE [address] [place] [address] Annette Long MD [address] [place] [address] documented as of this encounter Visit Diagnoses Not on filedocumented in this encounter Additional Health Concerns Assessment Noted Time PHQ-9 Depression Total Score: 18 025 4:53 PM EST documented as of this encounter Care Teams Sports Coordinator Relationship Specialty Start Date End Date Annette Long MD [address] [place] [address] PCP - General Family Medicine 02/01/22 documented as of this encounter
--- OUTSIDE RECORDS SUMMARY | 2025-06-03 08:23 | XMS_ITS | Encounter Summary ---
Author Organization [employer] Address [address] [facility] [address] 7t [place] [address] Care Team Providers Care Electronic Assembly Name Role Phone Annette Long MD Primary Care Provider [phone] Encounter Details Date Type Department Care Team (Late st Contact Info) Description 09/03/2024 Orders Only [facility] MEDICINE 230 [place], [place] [phone] Annette Long MD [address] [place], [place] [phone] Social History Tobacco Use Types Packs/Day Years [...] Description 07/03/2025 9:45 AM EST Office Visit [facility] MEDICINE [address] [place] [address] Annette Long MD [address] [place] [address] documented as of this encounter Visit Diagnoses Not on filedocumented in this encounter Additional Health Concerns Assessment Noted Time PHQ-9 Depression Total Score: 3 08/26/19 25 3:18 PM EDT documented as of this encounter Care Teams Electronic Assembly Relationship Specialty Start Date End Date Annette Long MD [address] [place] [address] PCP - General Family Medicine 02/01/22 documented as of this encounter
--- OUTSIDE RECORDS SUMMARY | 2025-06-03 08:23 | XMS_ITS | Encounter Summary ---
Author Organization [employer] Address [address] [facility] [address] 7t [place] [address] Care Team Providers Care Machinist Set Up Name Role Phone Annette Long MD Primary Care Provider [phone] Reason for Visit * Reason Onset Date Comments Medication Question 03/19/2024 Encounter Details Date Type Department Care Team ([facility] Contact Info) Description 03/19/2024 Telephone [facility] MEDICINE 230 [place], [place] [phone] Annette Long MD 230 [place], [place] [phone] Medication Question Social History Tobacco Use Types [...] 03/19/2024 3:43 PM EDT TC placed to [facility], they have Wegovy 0.25mg in stock. They will contact [facility] for a transfer and call pt. When [...] stating its on back order at the [facility] and no other [facility] has it in stock at the moment. Pharmacy advised pt call to request a possible alternative. Please contact pt at [phone]. documented in this encounter Plan of Treatment Upcoming Encounters Date Type Department Care Team (Late st Contact Info) Description 07/03/2025 9:45 AM EST Office Visit [facility] MEDICINE [address] [place] [address] Annette Long MD 230 [place] [address] documented as of this encounter Visit Diagnoses Not on filedocumented in this encounter Additional Health Concerns Assessment Noted Time PHQ-9 Depression Total Score: 12 024 1:42 PM EDT documented as of this encounter Care Teams Machinist Set Up Relationship Specialty Start Date End Date Annette Long MD 230 [place] [address] PCP - General Family Medicine 02/01/22 documented as of this encounter
--- OUTSIDE RECORDS SUMMARY | 2025-06-03 08:23 | XMS_ITS | Encounter Summary ---
Author Organization [employer] Address [address] [facility] 7t [place] [address] Care Team Providers Care Metal Window Frame Maker Name Role Phone Annette Long MD Primary Care Provider [phone] Reason for Referral * Consultation (Routine) - Authorized Specialty Diagnoses / Procedures Referred By Reginald maynard Referred To Contact Midwifery Diagnoses Bacterial vaginosis Annette Long MD [address] [place] [address] Phone: tel: fax: Ira Hough CNM [address] [place] [address] Phone: tel: fax: Referral ID Status Reason Start Date Expiration Date Visits Requested Visits Authorized [id number] Authorized Consult and Treat 02/13/2025 02/13/2026 1 1 Encounter Details Date Type Department Care Team ([facility] st Contact Info) Description 02/13/2025 Orders Only [facility] MEDICINE [address] [place] [address] [phone] Annette Long MD [address] [place] [address] [phone] Bacterial vaginosis (Primary Dx) Social History Tobacco [...] Description 07/03/2025 9:45 AM EST Office Visit [facility] MED[facility]INE [address] [place], [place] [phone] Annette Long MD [address] [place] [address] Scheduled Referrals Name Type Priority [...] documented as of this encounter Care Teams Metal Window Frame Maker Relationship Specialty Start Date End Date Annette Long MD [address] [place] [address] PCP - General Family Medicine 02/01/22 documented as of this encounter
--- OUTSIDE RECORDS SUMMARY | 2025-06-03 08:23 | XMS_ITS | Encounter Summary ---
Author Organization [facility] Address [address] [place] [phone] Phone Care Team Providers Care Rand Maker Name Role Phone Unavailable Primary Care Provider Unavailabl e Encounter Details Date Type Department Care Team (Late st Contact Info) Description 05/16/2011 Documentation [facility] Family Medicine [address] [place] [address] Family Medicine, Physician [address] [place] [address] Social History Tobacco Use Types [...]
--- OUTSIDE RECORDS SUMMARY | 2025-06-03 08:23 | XMS_ITS | Clinical Summary ---
Author Organization [employer] Address [address] [facility] 7t [place] [address] Care Team Providers Care Carver Hand Name Role Phone Annette Long MD Primary Care Provider [phone] Allergies No known active allergies Medications * This document contains information received from the source organization and may not represent a complete record from that organization. buPROPion XL (Wellbutrin XL) 150 MG 24 hr tablet Take 1 tablet (150 mg) by mouth Once per day. Do not crush, chew, or split. 90 tablet 3 5 026 Active hydrocortisone 2.5 % cream Apply topically 2 times daily. 10 g 1 5 Active Tirzepatide-We ight Management (Zepbound) 15 MG/0.5ML solution auto-injector Inject 0.42 mL (12.5 mg) as directed 1 (one) time per week. INJECT ONE PEN (=15 MG) SUBCUTANEOUSLY ONCE A WEEK 2 mL 3 5 Active Tirzepatide-We ight Management (Zepbound) 12.5 MG/0.5ML solution auto-injector Inject 0.5 mL (12.5 mg) under the skin 1 (one) time per week. 2 mL 5 Active venlafaxine XR (Effexor XR) 75 MG 24 hr capsule Take 1 capsule (75 mg) by mouth Once per day. To cross taper with Paxil, take 20mg Paxil and 37.5mg of Effexor together for one month. 90 capsule 3 5 026 Active traZODone (Desyrel) 100 MG tablet Take 1 tablet (100 mg) by mouth at bedtime. 90 tablet 3 5 Active Active Problems Problem Noted Date Diagnosed Date Moderate episode of recurren t major depressive disorder ([facility]) 05/27/2025 Grief 05/27/2025 Vaginal itching 02/03/2025 Assessment & Plan (02/03/2025 [...] comorbidity and body mass index (BMI) of 35.0 to 35.9 in adult 07/04/2024 Assessment & Plan (04/02/2025 11:29 AM EDT): Denies side effects of Zepbound, specifically stomach upset, nausea, diarrhea. Continue Zepbound 15mg weekly Stable on Wellbutrin 150mg XL daily [...] and increased physical activity. Assessment & Plan (11/19/2024 1:47 PM EDT): [...] EST): Increase Zepbound to 5mg per week FORD (generalized anxiety disorder) 10/08/2023 Assessment & Plan (10/10/2024 7:46 AM [...] depression Continue counseling 3 times weekly with Sebastian Chronic hypertension 10/08/2023 Assessment & Plan (02/26/2024 [...] to initiate a trial of Wegovy. Encounters * This document contains information received from the source organization and may not represent a complete record from that organization. Date Type Department Care Team Description 05/25/2025 Telephone [facility] [address] Annette Long MD Call Back Request 05/25/[address] [address] Annette Long MD Nurse Triage 05/14/2025 Travel 05/14/2025 Telephone [facility] [address] [place] [address] Annette Long MD Breast Cancer Screening 05/13/2025 Orders Only [address] [address] Annette Long MD FH: breast cancer in first degree relative (Primary Dx) 05/12/[address] [address] Annette Long MD Referral; Call Back Request 04/01/2025 4:00 PM EDT Office Visit [address] [address] Annette Long MD Class 2 severe obesity due to excess calories with serious comorbidity and body mass index (BMI) of 35.0 to 35.9 in adult (Primary Dx); Encounter for immunization 04/01/2025 Travel 03/31/2025 Travel 03/31/[address] [address] Annette Long MD chart prep 03/25/[address] [address] Annette Long MD 03/25/2025 Patient Outreach [address] [phone] Annette Long MD Pre-visit Planning (SDOH screening was completed on 12/29/2024) 03/23/2025 Refill [facility] MEDICINE [address] [place] [address] [phone] Annette Long MD 03/23/2025 Refill [facility] [place] [address] Apurva Merino NP 03/23/2025 Refill [facility] [place] [address] Annette Long MD 03/20/2025 Results Follow-Up [facility] [place] [address] Ira Hough CNM Bacterial Vaginosis Panel 03/19/2025 2:00 PM EDT Office Visit [facility] [place] [address] Ira Hough CNM Vaginal discharge (Primary Dx) 03/19/2025 Travel 03/18/2025 Telephone [facility] [place] [address] Annette Long MD chart prep 03/12/2025 Travel 03/05/2025 Results Follow-Up [facility] [place] [address] Jennifer Oviedo MD Bacterial Vaginosis 03/04/2025 11:15 AM EDT Office Visit [facility] [place] [address] Jennifer Oviedo MD Vaginal discharge (Primary Dx); Bacterial vaginosis 03/04/2025 Orders Only [facility] [place] [address] Jennifer Oviedo MD 03/04/2025 Travel 03/04/2025 Telephone [facility] [place] [address] Annette Long MD Nurse Triage from Last 3 Months Immunizations Immunization Administration Dates Next Due DTP 09/02/1994, 2,1990,1990,1990 Hep B, Adolescent or Pediatric 01/20/2002,1999,12/11/1996 Hep B, adult 03/31/2019,01/20/2019 Hib (PRP-T) 06/04/1991, 1,1990,1989 IPV 03/04/1995 Influenza injectable quadriv alent preservative free 03/31/2019 Influenza, IIV3, injectable 03/31/2019 Influenza, seasonal, injecta ble, preservative free 04/01/2025 MMR 01/09/2019,09/02/1994,06/04/1991 OPV, Trivalent 02/03/1992, 1,1990,1989 TD [...] Sign Reading Time Taken Comments Blood Pressure 126/82 04/01/2025 3:55 PM EDT Pulse 84 04/01/2025 3:55 PM EDT Temperature 36.4 C (97.5 F) 04/01/2025 3:55 PM EDT Respiratory Rate 12 04/01/2025 3:55 PM EDT Oxygen Saturation 96% 03/19/2025 2:03 PM EDT Inhaled Oxygen Concentration - - Weight 99.4 kg (219 lb 3.2 oz) 04/01/2025 3:55 P M EDT Height 167.6 cm (5' 6 ) 04/01/2025 3:55 PM EDT Body Mass Index 35.38 04/01/2025 3:55 PM EDT Plan of Treatment Upcoming Encounters Date Type Department Care Team (Late st Contact Info) Description 07/03/2025 9:45 AM EST Office Visit [facility] MEDICINE [address] [place] [address] Annette Long MD [address] [place] [address] Health Maintenance Due Date Last Done Comments HPV Vaccines (1 - 3-dose series) 2005 COVID-19 Vaccine (3 season) 2025 03/15/2021, 02/22/2021 Depression Monitoring 11/12/2025 05/14/2025, 025 Alcohol/Substance Use Screening 12/29/2025 12/29/2024 SDOH Screening 12/29/2025 12/29/2024 Disability Screening 03/19/2026 03/19/2025 Family Planning (PISQ) 03/19/2026 03/19/2025 Tobacco Screening 04/02/2026 04/02/2025 Cervical Cancer Screening 12/30/2027 HPV/Cotest 12/30/2027 12/29/2024, [...] Completed 04/01/2022 HIV Screening Completed 12/29/2024, 04/01/2022 Influenza Vaccine Completed 04/01/2025, , 03/31/2019 Hepatitis A Vaccines Aged Out No long [...] Associated Diagnosis Comments BACTERIAL VAGINOSIS PANEL Routine 03/19/2025 3:00 PM EDT Vaginal discharge POCT WET MOUNT/BANDAR Routine 03/19/2025 2: 40 PM EDT Vaginal discharge BACTERIAL VAGINOSIS PANEL Routine 03/04/2025 11:50 AM EDT CHLAMYDIA/N. GONORRHOEAE RNA, TMA, UROGENITAL Routine 03/04/2025 11:50 AM EDT Vaginal discharge HPV DNA, LOW/HIGH RISK Routine 12/29/2024 2:44 PM EDT PAP SMEAR Routine 12/29/2024 2:44 PM EDT HIV 1/2 ANTIGEN/ANTIBODY, FOURTH GENERATION W/RFL Routine 12/29/2024 2:40 PM EDT Low grade squamous intraepithelial lesion (LGSIL) on cervical Pap smear LIPID PANEL, STANDARD Routine 02/22/2024 2:54 PM EDT Obesity (BMI 30.0-34.9) ZZZ HISTORICAL HEPATITIS C ANTIBODY Routine 04/01/2022 10:23 AM EDT from Last 3 Months or Most Recently Relevant to Health Maintenance Results * Bacterial Vaginosis Panel (03/19/2025 3:00 PM EDT) Only the most recent of2 resultswithin the time period is included. TRICHOMONAS VAGINALIS DETECTION BY PCR NOT DETECTED Not Detect [facility] BACTERIAL VAGINOSIS DETECTION BY PCR NEGATIVE Negative [facility] Comment:The BV organism targ ets of [...] DETECTION BY PCR NOT DETECTED Not Detect [facility] Kathleen glab krusei PCR NOT DETECTED Not Detect [facility] Swab Vaginal structure / Unknown 03/19/2025 3:00 PM EDT 03/19/2025 6:30 PM EDT Ira Hough [facility] MICROBIOLOGY - GENERA L ORDERABLES Final Result [facility] [address] [place] [phone] * POCT fern test, vaginal fluid manually resulted (03/19/2025 2:40 PM EDT) BANDAR Prep Negative Comment:pH 4.5, neg whiff, n eg clue, neg trich, neg yeast, neg wbc Vaginal Fluid Vaginal structure / Unknown 03/19/2025 2:40 PM EDT [facility] POINT OF CARE TEST ENTER/ EDIT ORDERABLES Final Result * Chlamydia/N. Gonorrhoeae RNA, TMA, Vagina (03/04/2025 11:50 AM EDT) CT PCR NOT DETECTED Not Detect. [facility] Comment:A not detected test result does [...] psychologicalconsequences. NG PCR NOT DETECTED Not Detect. [facility] Comment:A not detected test result does [...] 11:50 AM EDT 03/04/2025 5:04 PM EDT Jennifer Oviedo MD LAB MICROBIOLOGY - GENERAL ORDER JUAN Final Result [facility] [address] [place] [phone] * HPV DNA, Low/High Risk (12/29/2024 2:44 PM EDT) HPV High Risk Negative Negative [facility] HPV Genotype 16 Negative Negative [facility] HPV Genotype 18 Negative Negative [facility] Comment:HPV testing performe d at (CLIA#[id number]), [address] [place] [address].Testing for HPV was performed using the Daniel [...] MD LAB BLOOD ORDERABLES Final Res ult [facility] [address] [place] [phone] * Pap Smear (12/29/2024 2:44 PM EDT) 12/29/2024 2:44 PM EDT 12/31/2024 7:35 AM EDT Narrative [facility] - 01/08/2025 9:57 AM EDT ----- ------- Name: Megan Wesley Age/Sex: 34/F : 1990 Unit#: [id number] Attend Dr: Annette Long Re12/29/24 Status: DEP REF Location: .CL Disch: ----- ------- SPEC : [id number] RECD: 12/31/24 STATUS: GUCCI DHILLON NUM: [id number] ABIGAIL: 12/29/24-14[address] [facility] [address]: Annette Long ENTERED: 12/31/24 SP TYPE: Pap Smr [facility] DR: ORDERED: Pap Smear Interpretation Satisfactory for [...] and HPV testing will be performed at (CLIA #[id number]), [address] [place] [address]. Testing for HPV was performed using the [employer] system. The presence of HPV in the [...] detected. All professional services are performed by [facility] ([address] [place], [place] [phone]; ; CLIA #[id number]). The PAP Test is a screening procedure with the inherent possibility of both false negative and false positive results. Results should be interpreted in the context of historic and current clinical findings. Reliability of the PAP Test is enhanced by performing the test on a regular repetitive basis. CONTINUED ON NEXT PAGE ----- ------- Name: Megan Wesley Age/Sex: 34/F : 1990 Unit#: [id number] Attend Dr: Annette Long Re12/29/24 Status: DEP REF Location: [facility] Disch: ----- ------- SPEC : [id number] RECD: 12/31/24 STATUS: GUCCI NEALYvrose NUM: [id number] ABIGAIL: 12/29/24-1443 [facility] [address]: Annette Long ENTERED: 12/31/24 SP TYPE: Pap Hortensia CHAVEZ DR: ORDERED: Pap Smear ----- ------- Signed (signature on file) LEXA Mccabe (ASC) 01/08/25 0957 ----- ------- END OF REPORT us Annette Long MD LAB CYTOLOGY ORDERABLES Final Result [facility] [address] [place] [phone] * HIV-1/2 Antigen and Antibodies, Fourth Generation, with Reflexes (12/29/2024 2:40 PM EDT) HIV AB/AG Nonreactive Nonreactive [facility] Comment:HIV-1 p24 Ag and/or HIV-1/HIV-2 Ab not detected.A test result that is nonreactive does not exclude thepossibility of exposure to or infection with HIV-1 and/orHIV-2. Nonreactive results in this assay for individualswith prior exposure to HIV-1 and/or HIV-2 may be due toantigen and antibody levels that are below the limit ofdetection of this assay.The [employer] HIV Ag/Ab Combo assay result andsupplemental assay results should be interpreted inconjunction with the patient's clinical presentation,history and other laboratory results. If the results areinconsistent with clinical evidence, additional testing issuggested to confirm the result. Blood Venous blood specimen / Unknown 12/29/2024 2:40 PM EDT 12/29/2024 4:06 PM EDT us Annette Long MD LAB BLOOD ORDERABLES Final Res ult [facility] [address] [place] [phone] * (ABNORMAL) Lipid Panel, Standard (02/22/2024 2:54 PM EDT) Triglycerides 260(H) <150 mg/dL [facility] Comment:Desirable Triglyceri de: less than 150 mg/dLBorderline High Triglyceride 150-199 mg/dLHigh Triglyceride: 200-499 mg/dLVery High Triglyceride: greater than or equal to 5OO mg/dL Cholesterol 211(H) <200 mg/dL [facility] Comment:Desirable Cholestero l: less than 200 mg/dLBorderline High Cholesterol: 200-239 mg/dLHigh Cholesterol: greater than 239 mg/dL LDL Cholesterol Calculated 122(H) <100 mg/dL [facility] Comment:Desirable LDL: less than 100 mg/dLNear Optimal/Above Optimal LDL: 110- 129 mg/dLBorderline High LDL: 130-159 mg/dLHigh LDL: 160-189 mg/dLVery High LDL: greater than or equal to 190 mg/dL HDL Cholesterol 37(L) >40 mg/dL [facility] Comment:Desirable HDL: great er than 40 mg/dL Note: This HDL assay may give artificially low results in patients with liver disease. Blood Venous blood specimen / Unknown 02/22/2024 2:54 PM EDT 02/22/2024 4:21 PM EDT us Annette Long MD LAB BLOOD ORDERABLES Final Res ult Performing Organization Address City/[facility]/ZIP Co de Phone Number [facility] [address] [place] [phone] * Hepatitis C Antibody (04/01/2022 10:23 [...] of detection of this assay. The [employer] HIV Ag/Ab Combo assay result and supplemental [...] Most Recently Relevant to Health Maintenance Insurance [address] [place] [phone] Care Teams Carver Hand Relationship Specialty Start Date End Date Annette Long MD [address] [place] [phone] PCP - General Family Medicine 02/01/22
--- OUTSIDE RECORDS SUMMARY | 2025-06-03 08:23 | XMS_ITS | Encounter Summary ---
Author Organization [employer] Address [address] 7[address] [place] [address] Care Team Providers Care Field Representative Name Role Phone Annette Long MD Primary Care Provider [phone] Reason for Visit * Reason Onset Date Comments Med Refill 01/27/2025 Encounter Details Date Type Department Care Team ([facility] st Contact Info) Description 01/27/2025 Refill [facility] MED[facility] [address] [place], [place] [phone] Annette Long MD [address] [place] [address] Social History Tobacco Use Types Packs/Day Years [...] Description 07/03/2025 9:45 AM EST Office Visit [facility] MEDICINE [address] [place] [phone] Annette Long MD [address] [place] [address] documented as of this encounter Visit Diagnoses Not on filedocumented in this encounter Additional Health Concerns Assessment Noted Time PHQ-9 Depression Total Score: 1 12/30/19 25 2:40 PM EDT documented as of this encounter Care Teams Field Representative Relationship Specialty Start Date End Date Annette Long MD [address] [place] [phone] PCP - General Family Medicine 02/01/22 documented as of this encounter
--- OUTSIDE RECORDS SUMMARY | 2025-06-03 08:23 | XMS_ITS | Encounter Summary ---
Author Organization [employer] Address [address] [place] [address] Care Team Providers Care Worm Farmer Name Role Phone Annette Long MD Primary Care Provider [phone] Encounter Details Date Type Department Care Team (Late st Contact Info) Description 12/31/2024 Orders Only [facility] MEDICINE [address] [place], [place] [phone] Annette Long MD [address] [place], [place] [phone] Screening for cervical cancer (Primary Dx) Social [...] Description 07/03/2025 9:45 AM EST Office Visit [facility] MEDICINE [address] [place] [phone] Annette Long MD [address] [place] [address] Scheduled Orders Name Type Priority Associated Diagnoses [...] documented as of this encounter Care Teams Worm Farmer Relationship Specialty Start Date End Date Annette Long MD [address] [place] [address] PCP - General Family Medicine 02/01/22 documented as of this encounter
--- OUTSIDE RECORDS SUMMARY | 2025-06-03 08:23 | XMS_ITS | Encounter Summary ---
Author Organization [employer] [facility] Address [address] [facility] 7t [place] [address] Care Team Providers Care Hyster Machine Operator Name Role Phone Annette Long MD Primary Care Provider [phone] Encounter Details Date Type Department Care Team (Late st Contact Info) Description 02/28/2023 Orders Only [facility] MEDICINE [address] [place] [phone] Oxana Echavarria Social History Tobacco Use Types [...] Description 07/03/2025 9:45 AM EST Office Visit [facility] MEDICINE [address] [place] [address] Annette Long MD [address] [place] [address] documented as of this encounter Procedures Procedure Name Priority Date/Time Associated Diagnosis Comments COLPOSCOPY Routine 09/30/2020 12:00 AM EDT HM PAP/HPV Routine 09/08/2020 documented in this encounter Results * Colposcopy (09/30/2020 12:00 AM EDT) Historical Provider IN CLINIC/BEDSIDE ORDERAB LES Final Result * Hm Pap Smear (09/08/2020) Historical Provider HEALTH MAINTENANCE Final Result documented in this encounter Visit Diagnoses Not on filedocumented in this encounter Care Teams Hyster Machine Operator Relationship Specialty Start Date End Date Annette Long MD [address] [place] [address] PCP - General Family Medicine 02/01/22 documented as of this encounter
--- OUTSIDE RECORDS SUMMARY | 2025-06-03 08:23 | XMS_ITS | Encounter Summary ---
Author Organization [employer] Address [address] [place] [address] Care Team Providers Care Pastry Chef Name Role Phone Annette Long MD Primary Care Provider [phone] Encounter Details Date Type Department Care Team (Late st Contact Info) Description 06/13/2024 Orders Only [facility] MED[facility]INE [address] [place], [place] [phone] Annette Long MD [address] [place], [place] [phone] Social History Tobacco Use Types Packs/Day Years [...] 9:45 AM EST Office Visit [facility] MEDICINE [address] [place] [address] Annette Long MD [address] [place] [address] documented as of this encounter Visit Diagnoses Not on filedocumented in this encounter Additional Health Concerns Assessment Noted Time PHQ-9 Depression Total Score: 12 024 1:42 PM EDT documented as of this encounter Care Teams Pastry Chef Relationship Specialty Start Date End Date Annette Long MD [address] [place] [address] [phone] PCP - General Family Medicine 02/01/22 documented as of this encounter
--- OUTSIDE RECORDS SUMMARY | 2025-06-03 08:23 | XMS_ITS | Encounter Summary ---
Author Organization [employer] [facility] Address [address] [facility] 7t [place] [address] Care Team Providers Care Credit Risk Management Director Name Role Phone Annette Long MD Primary Care Provider Encounter Details Date Type Department Care Team (Late st Contact Info) Description 02/28/2023 Orders Only [facility] MEDICINE [address] [place] [address] [phone] Provider, MD Lidia Social History Tobacco Use [...] Description 07/03/2025 9:45 AM EST Office Visit [address] [address] Annette Long MD [address] [place] [address] documented as of this encounter Procedures Procedure Name Priority Date/Time Associated Diagnosis Comments HM PAP/HPV Routine 12/06/2021 documented in this encounter Results * Hm Pap Smear (12/06/2021) Historical Provider HEALTH MAINTENANCE Final Result documented in this encounter Visit Diagnoses Not on filedocumented in this encounter Care Teams Credit Risk Management Director Relationship Specialty Start Date End Date Annette Long MD [address] [place] [address] [phone] PCP - General Family Medicine 02/01/22 documented as of this encounter
--- OUTSIDE RECORDS SUMMARY | 2025-06-03 08:23 | XMS_ITS | Encounter Summary ---
Author Organization [employer] Address [address] [facility] [facility] [address] [place] [address] Care Team Providers Care Turning Machine Set Up Operator Name Role Phone Annette Long MD Primary Care Provider [phone] Reason for Referral * Consultation (Routine) - Authorized Specialty Diagnoses / Procedures Referred By Reginald maynard Referred To Contact Genetics Diagnoses FH: breast cancer in first degree relative Annette Long MD [address] [place] [address] Phone: tel: fax: [address] Phone: tel: fax: Referral ID Status Reason Start Date Expiration Date Visits Requested Visits Authorized [id number] Authorized Specialty Services Required 05/13/2026 6 6 * Imaging (STAT) - Authorized Specialty Diagnoses / Procedures Referred By Reginald maynard Referred To Contact Radiology Diagnoses FH: breast cancer in first degree relative Procedures BI Mammogram Screening Tomosynthesis Bilateral Annette Long MD [address] [place] [address] Phone: tel: fax: [facility] [address] [place] [phone] Phone: tel: fax: Referral ID Status Reason Start Date Expiration Date V isits Requested Visits Authorized [id number] Authorized 05/13/2025 05/13/2026 1 1 Encounter Details Date Type Department Care Team (Late st Contact Info) Description 05/13/2025 Orders Only [facility] MEDICINE [address] [place] [address] Annette Long MD [address] [place] [address] FH: breast cancer in first degree relative (Primary Dx) Social History Tobacco Use Types [...] Description 07/03/2025 9:45 AM EST Office Visit [facility] MEDICINE [address] [place] [address] Annette Long MD [address] [place] [address] Scheduled Orders Name Type Priority Associated Diagnoses Orde r Schedule BI Mammogram Screening Tomosynthesis Bilateral Imaging STAT FH: breast cancer in first degree relative Expected: 05/13/2025, Expires: 07/14/2026 Scheduled Referrals Name Type Priority Associated Diagnoses Orde r Schedule Referral to Genetics Outpatient Referral Routine FH: breast cancer in first degree relative Expected: 05/13/2025 (Approximate), Expires: 05/13/2026 documented as of this encounter Visit Diagnoses Diagnosis FH: breast cancer in first degree relative- Primary Family history of malignant neoplasm of breast documented in this encounter Additional Health Concerns Assessment Noted Time PHQ-9 Depression Total Score: 1 12/30/19 25 2:40 PM EDT documented as of this encounter Care Teams Turning Machine Set Up Operator Relationship Specialty Start Date End Date Annette Long MD [address] [place] [phone] PCP - General Family Medicine 02/01/22 documented as of this encounter
--- OUTSIDE RECORDS SUMMARY | 2025-06-03 08:23 | XMS_ITS | Encounter Summary ---
Author Organization [employer] Address [address] [facility] [address] [place] [address] Care Team Providers Care Sewer Pipe Press Operator Name Role Phone Annette Long MD Primary Care Provider [phone] Reason for Visit * Reason Onset Date Comments Appointment Request 10/10/2023 Encounter Details Date Type Department Care Team (Late st Contact Info) Description 10/10/2023 Telephone [facility] MEDICINE [address] [place] [address] [phone] Annette Long MD [address] [place] [address] [phone] Appointment Request Social History Tobacco Use Types [...] Description 07/03/2025 9:45 AM EST Office Visit [facility] MEDICINE [address] [place] [address] [phone] Annette Long MD [address] [place] [phone] documented as of this encounter Visit Diagnoses Not on filedocumented in this encounter Care Teams Sewer Pipe Press Operator Relationship Specialty Start Date End Date Annette Long MD [address] [place] [address] PCP - General Family Medicine 02/01/22 documented as of this encounter
== END 2025-06-03 08:19 | disposition home or self-care (01) ==
LOC: HO.MAMMO 08:18
PROVIDERS: PCP General Practice; Visit Provider General Practice
DX: Z80.3 Family history of malignant neoplasm of breast (principal)
CPT/HCPCS: 77063; 77067

== ENCOUNTER → 2025-06-03 08:30 | Outpatient (BNV) | payer MEDICAID, SELFPAY | PROVIDERS: PCP General Practice; Visit Provider Internal Medicine | DX: Z12.31 Encounter for screening mammogram for malignant neoplasm of breast (principal) | CPT/HCPCS: 77063; 77067 ==